=== PATIENT | female | born 1965 | race Caucasian/White ===

== ENCOUNTER → 2020-07-23 11:15 | Outpatient (CLI) | payer MEDICARE, MEDICAID, SELFPAY ==
--- NOTE | ~2020-07-23 | MM_ITS ---
EXAMINATION: MM screening jose enrique BI w herber HISTORY: Screening TECHNIQUE: Craniocaudal and mediolateral oblique 3-D tomosynthesis images were obtained and synthetic 2-D images were generated. CAD analysis was submitted and interpreted. COMPARISON: Comparison to multiple prior studies sequentially, with oldest reviewed study dated 09/2017. BREAST PARENCHYMAL COMPOSITION: The breasts are heterogeneously dense, which may obscure small masses . FINDINGS: There is focal asymmetry in the subareolar location of the left breast. The right breast is stable without evidence for malignancy. IMPRESSION: 1. Focal right breast asymmetry. 2. Additional mammographic views and possible breast ultrasound are recommended. BI-RADS Category 0: Incomplete: Needs additional imaging evaluation. Reviewed, dictated and finalized at location A. REMOVER IMPRESSION: 1. Focal right breast asymmetry. 2. Additional mammographic views and possible breast ultrasound are recommended . BI-RADS Category 0: Incomplete: Needs additional imaging evaluation.
--- NOTE | ~2020-07-23 | XR_ITS ---
XR foot RT min 3V DATE: 07/23/2020 12:17 INDICATION: Right foot pain TECHNIQUE: 4 views COMPARISON: None FINDINGS: There is diffuse osteopenia. No fracture or dislocation, periosteal reaction or bone destru ction. Joint spaces are preserved. No erosive change. IMPRESSION: Diffuse osteopenia Reviewed, dictated and finalized at location A. NSED STAFF MFT IMPRESSION: Diffuse osteopenia
== END ==
PROVIDERS: PCP Internal Medicine; Visit Provider Internal Medicine
DX: Z12.31 Encounter for screening mammogram for malignant neoplasm of breast (principal); R92.8 Other abnormal and inconclusive findings on diagnostic imaging of breast; M85.871 Other specified disorders of bone density and structure, right ankle and foot
CPT/HCPCS: 73630; 77063; 77067

== ENCOUNTER → 2020-10-14 08:43 | Outpatient (CLI) | payer MEDICARE, MEDICAID, SELFPAY ==
--- NOTE | ~2020-10-14 | MMUS_ITS ---
2 EXAMINATION: MM diagnostic jose enrique LT w herber, US breast LT limited HISTORY: Follow-up possible left breast mass TECHNIQUE: Additional 3-D tomosynthesis images of the left breast were performed and synthetic 2-D im ages were generated. CAD analysis was submitted and interpreted. High resolution Limited left breast ultrasound was performed. COMPARISON: Comparison to multiple prior studies sequentially, with oldest reviewed study dated 04/24. BREAST PARENCHYMAL COMPOSITION: Breast composed of scattered areas of fibroglandular density. FINDINGS: MAMMOGRAPHIC FINDINGS: There is a mass in the upper central aspect of the left breast which is partially obscured by fibrogl andular tissue. This mass is approximately 3.5 cm from the nipple. ULTRASOUND: Left breast ultrasound: At 12:00, 3.5 cm from the nipple, there is a 7 mm hypoechoic oval mass with e nhanced through transmission and no internal vascularity. This corresponds to the mammographic findin g. IMPRESSION: 1. Probable benign 7 mm left breast mass at 12:00, 3 cm from the nipple. 2. Recommend 6 month follow-up left breast ultrasound BI-RADS category 3, probably benign findings. Reviewed, dictated and finalized at location A. [employer] IMPRESSION: 1. Probable benign 7 mm left breast mass at 12:00, 3 cm from the nipple. 2. Recommend 6 month follow-up left breast ultrasound BI-RADS category 3, probably benign findings.
--- NOTE | ~2020-10-14 | DEXA_ITS ---
Bone Density Report Name: Yudelka Sher Age: 55 Sex: Female Ethnicity: White Date of : 1965 Indication: postmenopausal; screening for osteoporosis; parental hip fracture; height loss; history of glucocorticoids; rheumatoid arthritis; Referring Provider: ZONIA ANDINO Study: Bone densitometry was performed. Exam Date: October 14, 2020 Accession number: [id number] Bone Density: Region BMD T-score Z-score Classification AP Spine (L1-L4) 0.902 -1.3 -0.1 Osteopenia Femoral Neck (Left) 0.572 -2.5 -1.4 Osteoporosis Total Hip (Left) 0.784 -1.3 -0.5 Osteopenia Femoral Neck (Right) 0.613 -2.1 -1.0 Osteopenia Total Hip (Right) 0.786 -1.3 -0.5 Osteopenia Total Hip Mean 0.785 -1.3 -0.5 Osteopenia World Health Organization criteria for BMD impression classify patients as: Normal (T-score at or above -1.0), Osteopenia (T-score between -1.0 and -2.5), or Osteoporosis (T-score at or below -2.5). 10-year Fracture Risk: FRAX not reported because: Some T-score for Spine Total or Hip Total or Femoral Neck at or below -2.5 Clinical Information Provided by Patient: Parent has had a hip fracture Smokes Has taken Glucocorticoids Has rheumatoid arthritis Has used the following medications: Vitamin D, Calcium Patient maximum height was 67.0 Menopause Age: 50 No regular weight bearing exercise Does not regularly consume dairy products Drinks caffeinated beverages Onset of menses at age 11 Number of children 2 Impression: The patient has osteoporosis, based on the Left Femoral Neck T-score. The patient has risk factors, including: parental hip fracture, smoking, history of glucocorticoid therapy. Discussion: INCREASED RISK OF FRACTURE. BONE DENSITY IS UNDESIRABLY LOW AT ONE OR MORE SKELETAL SITES, CONSISTENT WITH POSTMENOPAUSAL OSTEOPOROSIS. This patient's lowest T-score meets the World Health Organization's (WHO) criteria for osteoporosis at one or more sites (T-score -2.5 or below). In untreated patients, the risk of osteoporotic fracture increases approximately two-fold for each 1.0 SD decrease in T-score. Low bone density is not the only risk factor for fracture; also consider factors such as patient's age, frailty or poor health, risk of falling, risk of injury, previous osteoporotic fracture, family history of osteoporosis, cigarette smoking, low body weight, etc. Not everyone with low bone mineral density has osteoporosis; osteomalacia and other metabolic bone disorders should also be considered. Patients who have osteoporosis should be evaluated for specific diseases and conditions (secondary causes) that may cause or contribute to bone loss. The [place] [employer] Endocrinologists (AACE) and National Osteoporosis Foundation (NOF) recommend pharmacologic intervention for all postmenopausal women whose
--- NOTE | ~2020-10-14 | DEXA_ITS ---
Bone Density Report Name: Yudelka Sher Age: 55 Sex: Female Ethnicity: White Date of : 1965 Indication: postmenopausal; screening for osteoporosis; parental hip fracture; height loss; history of glucocorticoids; rheumatoid arthritis; Referring Provider: ZONIA ANDINO Study: Bone densitometry was performed. Exam Date: October 14, 2020 Accession number: [id number] Bone Density: Region BMD T-score Z-score Classification Total Forearm (Left) 0.457 -2.1 -1.0 1/3 Forearm (Left) 0.592 -1.6 -0.5 UD Forearm (Left) 0.310 -2.0 -1.2 World Health Organization criteria for BMD impression classify patients as: Normal (T-score at or above -1.0), Osteopenia (T-score between -1.0 and -2.5), or Osteoporosis (T-score at or below -2.5). Clinical Information Provided by Patient: Parent has had a hip fracture Smokes Has taken Glucocorticoids Has rheumatoid arthritis Has used the following medications: Vitamin D, Calcium Patient maximum height was 67.0 Menopause Age: 50 No regular weight bearing exercise Does not regularly consume dairy products Drinks caffeinated beverages Onset of menses at age 11 Number of children 2 Impression: The patient has low bone mass, based on the Left Third Radius T-score. The patient has risk factors, including: parental hip fracture, smoking, history of glucocorticoid therapy. Discussion: BONE DENSITY IS LOW AT ONE OR MORE SKELETAL SITES. This patient's lowest T-score is low at one or more skeletal sites. It meets the World Health Organization's (WHO) criteria for ?low bone mass? (T-score between -1.0 and -2.5). The patient's 10-year risk of fracture as calculated by FRAX is less than the threshold where pharmacological therapy is recommended by the National Osteoporosis Foundation (NOF). However, all treatment decisions require clinical judgment and consideration of individual patient factors, including patient preferences, comorbidities, previous drug use, risk factors not captured in the FRAX model (e.g., frailty, falls, vitamin D deficiency, increased bone turnover, interval significant decline in bone density) and possible under or overestimation of fracture risk by FRAX. The patient should follow a healthful lifestyle (good nutrition with adequate calcium and vitamin D, and appropriate weight-bearing exercise). Follow-Up: Consider repeating this study in 2 to 3 years to reassess this patient's status, or sooner if there is some new clinical indication. Reported by: ABRAHAM on 10/14/2020 11:37:00 AM. Reviewed, dictated and finalized at location A. [facility]
== END ==
PROVIDERS: PCP Internal Medicine; Visit Provider Internal Medicine
DX: R92.8 Other abnormal and inconclusive findings on diagnostic imaging of breast (principal); M85.88 Other specified disorders of bone density and structure, other site; M81.0 Age-related osteoporosis without current pathological fracture; M85.852 Other specified disorders of bone density and structure, left thigh; M85.851 Other specified disorders of bone density and structure, right thigh
CPT/HCPCS: 76642; 77061; 77065; 77080; 77081; G0279

== ENCOUNTER → 2021-04-19 14:39 | Outpatient (CLI) | payer MEDICARE, MEDICAID, SELFPAY ==
--- NOTE | ~2021-04-19 | US_ITS ---
US breast LT limited DATE: 04/19/2021 14:52 INDICATION: Six-month follow-up of 12:00 7 mm hypoechoic oval mass 3.5 cm from nipple TECHNIQUE: Targeted ultrasound and color flow imaging at 12:00 3.5 cm from nipple COMPARISON: 10/14/2020 Limited left breast ultrasound FINDINGS: 7.5 x 6.2 x 9 mm irregular hypoechoic solid mass is noted at 12:00 3.5 cm from nipple, mild ly increased in size since 10/2020. The interval mild increased size and irregular margins are of con cern, warranting ultrasound-guided biopsy. IMPRESSION: BI-RADS Category 4: Suspicious abnormality; biopsy should be considered Recommendation: Ultrasound-guided biopsy of 12:00 lesion 3.[address] Wyatt telephoned the report and ultrasound guided biopsy recommendation on 04/19/[address] Pearson's Crew Scheduler's voicemail. Reviewed, dictated and finalized at Location A. Reviewed, dictated and finalized at location A. IMPRESSION: BI-RADS Category 4: Suspicious abnormality; biopsy should be consid ered Recommendation: Ultrasound-guided biopsy of 12:00 lesion 3.[address] Wyatt telephoned the report and ultrasound guided biopsy recommendation on at [address] Pearson's Crew Scheduler's voicemail.
== END ==
PROVIDERS: PCP Internal Medicine; Visit Provider Obstetrics & Gynecology
DX: N63.25 Unspecified lump in the left breast, overlapping quadrants (principal)
CPT/HCPCS: 76642

== ENCOUNTER 2021-12-27 11:54 | Outpatient (CLI) | payer MEDICARE, MEDICAID, SELFPAY ==
[2021-12-27 12:55] LABS: Basophils Percent Auto 0.7 % (0.2-1.2); Eosinophils Absolute Auto 0.1 K/mm3 (0-0.3); Eosinophils Percent Auto 2.3 % (0-4.4); Hematocrit 42.8 % (37.0-47.0); Immature Granulocyte Absolute 0.01 K/mm3 (0.00-0.031); Immature Granulocyte Percent A 0.3 % (0-0.5); Immature Platelet Fraction Pct 3.9 % (0.9-11.2); Lymphocytes Absolute Auto 1.33 K/mm3 (0.9-3.2); Lymphocytes Percent Auto 44.6 % (18.3-44.2); Mean Corpuscular HGB Conc 32.7 g/dl (32-36); Mean Corpuscular Hemoglobin 33.3 pg (26-34); Mean Corpuscular Volume 101.7 fl (80-100); Mean Platelet Volume 10.6 fl (7.4-10.4); Monocytes Absolute Auto 0.2 K/mm3 (0.1-0.6); Neutrophils Absolute Auto 1.4 K/mm3 (1.3-6.7); Neutrophils Percent Auto 46.1 % (45.5-73.1); Platelet Count Result 141 k/mm3 (150-375); Red Blood Count 4.21 M/mm3 (4.2-5.4); Red Cell Distribution Width 13.7 % (11.5-14.5)
[2021-12-27 13:08] LABS: Alanine Aminotransferase 25 U/L (6-35); Albumin Level 4.2 g/dL (3.5-5.1); Alkaline Phosphatase 95 U/L (38-126); Anion Gap 7 mmol/L (8-16); Aspartate Amino Transferase 38 U/L (14-36); Blood Urea Nitrogen 17 mg/dL (7-17); Calcium 9.1 mg/dL (8.4-10.2); Carbon Dioxide 21 mmol/L (22-30); Chloride 109 mmol/L (98-107); Cholesterol 209 mg/dL (0-200); Estimated Glomerular Filt Rate > 60; Glucose 91 mg/dL (65-110); HDL Direct 74 mg/dL; Potassium 4.3 mmol/L (3.4-5.0); Sodium 137 mmol/L (137-145); Triglycerides 94 mg/dL (<150)
[2021-12-27 13:19] LABS: LDL Cholesterol Direct 92 mg/dL
[2021-12-27 13:24] LABS: Free T4 Free Thyroxine 1.15 ng/mL (0.78-2.19); Vitamin D 25 Hydroxy 49.2 ng/mL
[2021-12-30 04:53] LABS: Triiodothyronine T3 Free 2.9 pg/mL (2.3-4.2)
== END 2021-12-27 11:55 | disposition home or self-care (01) ==
LOC: ANHLAB 11:59
PROVIDERS: PCP Internal Medicine; Visit Provider Clinical Nurse Specialist
DX: E03.9 Hypothyroidism, unspecified (principal); E55.9 Vitamin D deficiency, unspecified; M05.9 Rheumatoid arthritis with rheumatoid factor, unspecified; I51.9 Heart disease, unspecified
CPT/HCPCS: 36415; 80053; 80061; 82306; 84439; 84443; 84481; 85025; 85055

== ENCOUNTER 2022-01-04 12:26 | Outpatient (CLI) | payer MEDICARE, MEDICAID, SELFPAY ==
[2022-01-04 12:47] LABS: Basophils Percent Auto 0.9 % (0.2-1.2); Eosinophils Absolute Auto 0.1 K/mm3 (0-0.3); Eosinophils Percent Auto 3.5 % (0-4.4); Immature Granulocyte Absolute 0.01 K/mm3 (0.00-0.031); Immature Granulocyte Percent A 0.3 % (0-0.5); Lymphocytes Absolute Auto 1.54 K/mm3 (0.9-3.2); Lymphocytes Percent Auto 44.9 % (18.3-44.2); Mean Corpuscular HGB Conc 34.1 g/dl (32-36); Mean Corpuscular Hemoglobin 33.3 pg (26-34); Mean Corpuscular Volume 97.6 fl (80-100); Mean Platelet Volume 10.2 fl (7.4-10.4); Monocytes Absolute Auto 0.3 K/mm3 (0.1-0.6); Monocytes Percent Auto 7.3 % (2.6-8.5); Neutrophils Absolute Auto 1.5 K/mm3 (1.3-6.7); Neutrophils Percent Auto 43.1 % (45.5-73.1); Platelet Count Result 147 k/mm3 (150-375); Red Cell Distribution Width 13.6 % (11.5-14.5); White Blood Count 3.4 K/mm3 (4.5-10.0)
== END 2022-01-04 12:27 | disposition home or self-care (01) ==
LOC: ANHLAB 12:30
PROVIDERS: PCP Internal Medicine; Visit Provider Clinical Nurse Specialist
DX: D72.819 Decreased white blood cell count, unspecified (principal)
CPT/HCPCS: 36415; 85025

== ENCOUNTER 2022-02-15 14:04 | Outpatient (CLI) | payer MEDICARE, MEDICAID, SELFPAY ==
--- NOTE | ~2022-02-15 | XR_ITS ---
EXAM: XR wrist LT w scaphoid DATE: 02/15/2022 15:22 HISTORY: M25.539 - FALL 2-3 DAYS AGO, ULNA PAIN . COMPARISON: None available. FINDINGS: Decreased mineralization. Transverse fracture of the distal left ulnar shaft, with minimal lateral displacement and angulation and evidence of early healing change. No lytic or blastic lesion . Mild degenerative changes. No erosion or periosteal change. Soft tissue swelling over the fracture site. IMPRESSION: Mildly displaced and angulated subacute fracture of the distal left ulnar shaft. Recommen d left elbow radiographs to evaluate for radial head dislocation (Mon[place]ggia fracture dislocation). Reviewed, dictated and finalized at location K. IMPRESSION: Mildly displaced and angulated subacute fracture of the distal left ulnar shaft. Recommend left elbow radiographs to evaluate for radial head disl ocation (Mon[place]ggia fracture dislocation).
== END 2022-02-15 14:05 | disposition home or self-care (01) ==
PROVIDERS: PCP Internal Medicine; Visit Provider Clinical Nurse Specialist
DX: M25.539 Pain in unspecified wrist (principal)
CPT/HCPCS: 73110

== ENCOUNTER 2022-02-16 10:51 | Outpatient (CLI) | payer MEDICARE, MEDICAID, SELFPAY ==
--- NOTE | ~2022-02-16 | XR_ITS ---
XR elbow LT min 3V DATE: 02/16/2022 11:09 INDICATION: Fracture TECHNIQUE: 4 views COMPARISON: None FINDINGS: No fracture or dislocation, periosteal reaction or bone destruction. Osteopenia. IMPRESSION: No fracture or dislocation Reviewed, dictated and finalized at location A. IMPRESSION: No fracture or dislocation
== END 2022-02-16 10:52 | disposition home or self-care (01) ==
PROVIDERS: PCP Internal Medicine; Visit Provider Clinical Nurse Specialist
DX: S52.209A Unspecified fracture of shaft of unspecified ulna, initial encounter for closed fracture (principal); X58.XXXA Exposure to other specified factors, initial encounter
CPT/HCPCS: 73080

== ENCOUNTER 2022-04-13 12:31 | Outpatient (CLI) | payer MEDICARE, MEDICAID, SELFPAY ==
[2022-04-13 14:29] LABS: Basophils Percent Auto 0.7 % (0.2-1.2); Eosinophils Absolute Auto 0.2 K/mm3 (0-0.3); Hematocrit 38.4 % (37.0-47.0); Hemoglobin 12.9 g/dL (12.0-15.0); Immature Granulocyte Absolute 0.01 K/mm3 (0.00-0.031); Immature Granulocyte Percent A 0.2 % (0-0.5); Lymphocytes Absolute Auto 1.99 K/mm3 (0.9-3.2); Lymphocytes Percent Auto 47.3 % (18.3-44.2); Mean Corpuscular HGB Conc 33.6 g/dl (32-36); Mean Corpuscular Hemoglobin 32.9 pg (26-34); Mean Platelet Volume 10.1 fl (7.4-10.4); Monocytes Absolute Auto 0.5 K/mm3 (0.1-0.6); Monocytes Percent Auto 11.6 % (2.6-8.5); Neutrophils Absolute Auto 1.5 K/mm3 (1.3-6.7); Neutrophils Percent Auto 36.2 % (45.5-73.1); Platelet Count Result 119 k/mm3 (150-375); Red Blood Count 3.92 M/mm3 (4.2-5.4); Red Cell Distribution Width 15.4 % (11.5-14.5); White Blood Count 4.2 K/mm3 (4.5-10.0)
== END 2022-04-13 12:32 | disposition home or self-care (01) ==
PROVIDERS: PCP Internal Medicine; Visit Provider Clinical Nurse Specialist
DX: D72.819 Decreased white blood cell count, unspecified (principal)
CPT/HCPCS: 36415; 85025

== ENCOUNTER 2022-05-02 11:20 | Outpatient (CLI) | payer MEDICARE, MEDICAID, SELFPAY ==
[2022-05-02 19:25] LABS: Basophils Percent Auto 0.6 % (0.2-1.2); Eosinophils Absolute Auto 0.2 K/mm3 (0-0.3); Eosinophils Percent Auto 4.8 % (0-4.4); Immature Granulocyte Absolute 0.01 K/mm3 (0.00-0.031); Immature Granulocyte Percent A 0.3 % (0-0.5); Lymphocytes Absolute Auto 1.44 K/mm3 (0.9-3.2); Lymphocytes Percent Auto 46.3 % (18.3-44.2); Mean Corpuscular HGB Conc 33.3 g/dl (32-36); Mean Corpuscular Hemoglobin 32.7 pg (26-34); Mean Corpuscular Volume 98.2 fl (80-100); Mean Platelet Volume 10.9 fl (7.4-10.4); Monocytes Absolute Auto 0.2 K/mm3 (0.1-0.6); Monocytes Percent Auto 5.1 % (2.6-8.5); Neutrophils Absolute Auto 1.3 K/mm3 (1.3-6.7); Neutrophils Percent Auto 42.9 % (45.5-73.1); Platelet Count Result 129 k/mm3 (150-375); Red Blood Count 3.97 M/mm3 (4.2-5.4); Red Cell Distribution Width 14.8 % (11.5-14.5); White Blood Count 3.1 K/mm3 (4.5-10.0)
== END 2022-05-02 11:21 | disposition home or self-care (01) ==
PROVIDERS: PCP Internal Medicine; Visit Provider Internal Medicine
DX: D69.6 Thrombocytopenia, unspecified (principal); D72.819 Decreased white blood cell count, unspecified
CPT/HCPCS: 36415; 85025

== ENCOUNTER 2022-07-27 13:18 | Outpatient (CLI) | payer MEDICARE, MEDICAID, SELFPAY | END 2022-07-27 13:19 | disposition home or self-care (01) | LOC: ANHGOSHLAB 13:20 | PROVIDERS: PCP Internal Medicine; Visit Provider Clinical Nurse Specialist | DX: E03.9 Hypothyroidism, unspecified (principal) | CPT/HCPCS: 36415; 84443 ==

== ENCOUNTER → 2023-02-12 11:25 | Outpatient (CLI) | payer MEDICARE, MEDICAID, SELFPAY ==
--- NOTE | ~2023-02-12 | XR_ITS ---
Left wrist Technique: PA, oblique, lateral, and ulnar deviation views were obtained. Clinical History: Pain COMPARISON: 05/17/2022 Findings: Questionable focal cortical irregularity of the scaphoid. Chronic, healed fracture deformit y of the distal ulnar shaft noted. Osseous alignment is anatomic. Joint spaces are preserved. Soft ti ssues are unremarkable. Impression: Questionable nondisplaced fracture scaphoid. Correlate for somewhat box tenderness. If there is clini karley concern for scaphoid fracture, then MR would be recommended for further assessment. Reviewed, dictated and finalized at [facility]. Impression: Questionable nondisplaced fracture scaphoid. Correlate for somewhat box tendern ess. If there is clinical concern for scaphoid fracture, then MR would be recom mended for further assessment.
== END ==
PROVIDERS: PCP Clinical Nurse Specialist; Visit Provider Clinical Nurse Specialist
DX: M25.532 Pain in left wrist (principal); R93.6 Abnormal findings on diagnostic imaging of limbs
CPT/HCPCS: 73110

== ENCOUNTER 2023-05-02 10:34 | Outpatient (CLI) | payer MEDICARE, MEDICAID, SELFPAY ==
[2023-05-02 10:52] LABS: Eosinophils Absolute Auto 0.3 K/mm3 (0-0.3); Eosinophils Percent Auto 8.4 % (0-4.4); Hematocrit 39.4 % (37.0-47.0); Hemoglobin 13.2 g/dL (12.0-15.0); Lymphocytes Absolute Auto 1.18 K/mm3 (0.9-3.2); Lymphocytes Percent Auto 38.1 % (18.3-44.2); Mean Corpuscular HGB Conc 33.5 g/dl (32-36); Mean Corpuscular Hemoglobin 33.1 pg (26-34); Mean Corpuscular Volume 98.7 fl (80-100); Mean Platelet Volume 9.8 fl (7.4-10.4); Monocytes Absolute Auto 0.1 K/mm3 (0.1-0.6); Monocytes Percent Auto 4.5 % (2.6-8.5); Neutrophils Absolute Auto 1.5 K/mm3 (1.3-6.7); Platelet Count Result 114 k/mm3 (150-375); Red Blood Count 3.99 M/mm3 (4.2-5.4); White Blood Count 3.1 K/mm3 (4.5-10.0)
[2023-05-02 12:01] LABS: Alanine Aminotransferase 28 U/L (6-35); Albumin Level 3.9 g/dL (3.5-5.1); Alkaline Phosphatase 110 U/L (38-126); Anion Gap 4 mmol/L (8-16); Aspartate Amino Transferase 35 U/L (14-36); Bilirubin,Total 0.7 mg/dL (0.2-1.3); Blood Urea Nitrogen 14 mg/dL (7-17); Calcium 9.2 mg/dL (8.4-10.2); Carbon Dioxide 26 mmol/L (22-30); Chloride 107 mmol/L (98-107); Estimated Glomerular Filt Rate > 60; Glucose 101 mg/dL (65-110); Potassium 4.1 mmol/L (3.4-5.0); Sodium 137 mmol/L (137-145)
[2023-05-02 12:46] LABS: Iron 87 ug/dL (37-170)
[2023-05-02 12:59] LABS: Percent Iron Saturation 27 % (20-50)
[2023-05-02 13:10] LABS: Folic Acid > 20.0 ng/mL (2.76->20)
[2023-05-05 23:22] LABS: Platelet Antibody, Direct NEGATIVE (NEGATIVE)
== END 2023-05-02 10:35 | disposition home or self-care (01) ==
PROVIDERS: PCP Clinical Nurse Specialist; Visit Provider Internal Medicine Hematology & Oncology
DX: D64.9 Anemia, unspecified (principal)
CPT/HCPCS: 36415; 80053; 82607; 82728; 82746; 83540; 83550; 85025; 86023

== ENCOUNTER 2023-05-21 09:22 | Outpatient (CLI) | payer MEDICARE, MEDICAID, SELFPAY ==
--- NOTE | ~2023-05-21 | US_ITS ---
US abdomen complete EXAMINATION: US Abdomen Complete INDICATION: Thrombocytopenia PROCEDURE: Realtime High Resolution abdomen ultrasound. COMPARISON: No prior studies for comparison FINDINGS: Gallbladder contains stones. Common bile duct measures 6.5 mm. Liver echotexture within normal limits without focal mass. Pancreas within normal limits. Pancreati c tail is obscured by bowel gas. Spleen is unremarkeable. Renal echotexture is within normal limits bilaterally without hydronephrosis, contour deforming mass or renal stone. Right kidney measures 9.8 cm. Left kidney measures 9.8 cm. Visualized aspects of the aorta and IVC are within normal limits. Portal vein is patent. No sonograph ic Warren's sign indicated by the technologist. IMPRESSION: 1: Cholelithiasis. Reviewed, dictated and finalized at location B. IMPRESSION: 1: Cholelithiasis.
== END 2023-05-21 09:23 | disposition home or self-care (01) ==
PROVIDERS: PCP Clinical Nurse Specialist; Visit Provider Internal Medicine Hematology & Oncology
DX: D69.59 Other secondary thrombocytopenia (principal); K80.20 Calculus of gallbladder without cholecystitis without obstruction
CPT/HCPCS: 76700

== ENCOUNTER 2023-07-24 12:12 | Outpatient (CLI) | payer MEDICARE, MEDICAID, SELFPAY ==
[2023-07-24 13:10] LABS: Basophils Percent Auto 0.7 % (0.2-1.2); Eosinophils Absolute Auto 0.3 K/mm3 (0-0.3); Eosinophils Percent Auto 5.9 % (0-4.4); Hematocrit 42.3 % (37.0-47.0); Immature Granulocyte Absolute 0.01 K/mm3 (0.00-0.031); Immature Granulocyte Percent A 0.2 % (0-0.5); Lymphocytes Absolute Auto 1.64 K/mm3 (0.9-3.2); Lymphocytes Percent Auto 38.5 % (18.3-44.2); Mean Corpuscular HGB Conc 33.1 g/dl (32-36); Mean Corpuscular Hemoglobin 31.8 pg (26-34); Mean Corpuscular Volume 96.1 fl (80-100); Mean Platelet Volume 10.3 fl (7.4-10.4); Monocytes Absolute Auto 0.2 K/mm3 (0.1-0.6); Monocytes Percent Auto 5.4 % (2.6-8.5); Neutrophils Absolute Auto 2.1 K/mm3 (1.3-6.7); Neutrophils Percent Auto 49.3 % (45.5-73.1); Platelet Count Result 155 k/mm3 (150-375); Red Cell Distribution Width 13.1 % (11.5-14.5); White Blood Count 4.3 K/mm3 (4.5-10.0)
[2023-07-24 13:22] LABS: Alanine Aminotransferase 25 U/L (6-35); Albumin Level 4.1 g/dL (3.5-5.1); Alkaline Phosphatase 100 U/L (38-126); Anion Gap 7 mmol/L (8-16); Aspartate Amino Transferase 37 U/L (14-36); Bilirubin,Total 0.8 mg/dL (0.2-1.3); Blood Urea Nitrogen 14 mg/dL (7-17); CRP < 0.5 mg/dL (<1.0); Calcium 9.3 mg/dL (8.4-10.2); Carbon Dioxide 25 mmol/L (22-30); Chloride 108 mmol/L (98-107); Estimated Glomerular Filt Rate > 60; Glucose 105 mg/dL (65-110); Potassium 4.1 mmol/L (3.4-5.0); Sodium 140 mmol/L (137-145)
[2023-07-24 14:25] LABS: Erythrocyte Sedimentation Rate 21 mm/hr (0-20)
== END 2023-07-24 12:13 | disposition home or self-care (01) ==
PROVIDERS: PCP Clinical Nurse Specialist
DX: M06.9 Rheumatoid arthritis, unspecified (principal); Z79.899 Other long term (current) drug therapy
CPT/HCPCS: 36415; 80053; 85025; 85652; 86140

== ENCOUNTER 2023-08-03 11:23 | Outpatient (CLI) | payer MEDICARE, MEDICAID, SELFPAY ==
[2023-08-03 11:44] LABS: Basophils Percent Auto 0.8 % (0.2-1.2); Eosinophils Absolute Auto 0.2 K/mm3 (0-0.3); Eosinophils Percent Auto 4.8 % (0-4.4); Hematocrit 41.9 % (37.0-47.0); Hemoglobin 13.9 g/dL (12.0-15.0); Immature Granulocyte Absolute 0.01 K/mm3 (0.00-0.031); Immature Granulocyte Percent A 0.3 % (0-0.5); Lymphocytes Absolute Auto 1.16 K/mm3 (0.9-3.2); Lymphocytes Percent Auto 32.8 % (18.3-44.2); Mean Corpuscular HGB Conc 33.2 g/dl (32-36); Mean Corpuscular Hemoglobin 32.5 pg (26-34); Mean Corpuscular Volume 97.9 fl (80-100); Mean Platelet Volume 9.7 fl (7.4-10.4); Monocytes Absolute Auto 0.3 K/mm3 (0.1-0.6); Monocytes Percent Auto 7.6 % (2.6-8.5); Neutrophils Absolute Auto 1.9 K/mm3 (1.3-6.7); Neutrophils Percent Auto 53.7 % (45.5-73.1); Platelet Count Result 104 k/mm3 (150-375); Red Blood Count 4.28 M/mm3 (4.2-5.4); White Blood Count 3.5 K/mm3 (4.5-10.0)
[2023-08-03 14:08] LABS: Folic Acid 19.6 ng/mL (2.76->20)
[2023-08-03 18:23] LABS: Iron 114 ug/dL (37-170)
[2023-08-03 18:37] LABS: Percent Iron Saturation 39 % (20-50)
== END 2023-08-03 11:24 | disposition home or self-care (01) ==
LOC: ANHLAB 11:26
PROVIDERS: PCP Internal Medicine; Visit Provider Internal Medicine Hematology & Oncology
DX: D64.9 Anemia, unspecified (principal)
CPT/HCPCS: 36415; 82607; 82728; 82746; 83540; 83550; 85025

== ENCOUNTER 2023-08-09 15:03 | Outpatient (CLI) | payer MEDICARE, MEDICAID, SELFPAY | END 2023-08-09 15:04 | disposition home or self-care (01) | LOC: ANHLAB 15:05 | PROVIDERS: PCP Internal Medicine; Visit Provider Internal Medicine Hematology & Oncology | DX: D72.819 Decreased white blood cell count, unspecified (principal) | CPT/HCPCS: 88184 ==

== ENCOUNTER 2023-12-05 11:27 | Outpatient (CLI) | payer MEDICARE, MEDICAID, SELFPAY ==
[2023-12-05 12:10] LABS: Basophils Percent Auto 0.7 % (0.2-1.2); Eosinophils Absolute Auto 0.1 K/mm3 (0-0.3); Eosinophils Percent Auto 3.5 % (0-4.4); Hematocrit 42.4 % (37.0-47.0); Hemoglobin 14.1 g/dL (12.0-15.0); Immature Granulocyte Absolute 0.02 K/mm3 (0.00-0.031); Immature Granulocyte Percent A 0.5 % (0-0.5); Lymphocytes Percent Auto 27.4 % (18.3-44.2); Mean Corpuscular HGB Conc 33.3 g/dl (32-36); Mean Corpuscular Hemoglobin 32.3 pg (26-34); Mean Corpuscular Volume 97.2 fl (80-100); Mean Platelet Volume 10.2 fl (7.4-10.4); Monocytes Absolute Auto 0.3 K/mm3 (0.1-0.6); Monocytes Percent Auto 8.2 % (2.6-8.5); Neutrophils Absolute Auto 2.4 K/mm3 (1.3-6.7); Neutrophils Percent Auto 59.7 % (45.5-73.1); Platelet Count Result 121 k/mm3 (150-375); Red Blood Count 4.36 M/mm3 (4.2-5.4)
[2023-12-05 12:22] LABS: Alanine Aminotransferase 26 U/L (6-35); Albumin Level 4.2 g/dL (3.5-5.1); Alkaline Phosphatase 120 U/L (38-126); Anion Gap 5 mmol/L (4-12); Aspartate Amino Transferase 34 U/L (14-36); Bilirubin,Total 0.6 mg/dL (0.2-1.3); Blood Urea Nitrogen 15 mg/dL (7-17); CRP 0.7 mg/dL (<1.0); Calcium 9.5 mg/dL (8.4-10.2); Carbon Dioxide 25 mmol/L (22-30); Chloride 111 mmol/L (98-107); Estimated Glomerular Filt Rate > 60; Glucose 123 mg/dL (65-110); Sodium 141 mmol/L (137-145)
[2023-12-05 13:44] LABS: Erythrocyte Sedimentation Rate 23 mm/hr (0-20)
== END 2023-12-05 11:28 | disposition home or self-care (01) ==
PROVIDERS: PCP Internal Medicine
DX: M06.9 Rheumatoid arthritis, unspecified (principal); Z79.899 Other long term (current) drug therapy
CPT/HCPCS: 36415; 80053; 85025; 85652; 86140

== ENCOUNTER 2024-01-23 10:45 | Outpatient (CLI) | payer MEDICARE, MEDICAID, SELFPAY ==
--- NOTE | ~2024-01-23 | XR_ITS ---
XR knee LT min 4V 01/23/2024 11:04 Indication: Left knee pain Procedure: 4 views left knee Comparison: 03/21/2023 Findings: There is anatomic alignment. There is sclerosis of the medial tibial plateau. No significan t joint effusion. Impression: 1: New sclerosis of the medial tibial plateau, suspicious for nondisplaced fracture. Consider correla tion with MRI. Reviewed, dictated and finalized at location B. Impression: 1: New sclerosis of the medial tibial plateau, suspicious for nondisplaced frac ture. Consider correlation with MRI.
== END 2024-01-23 10:46 | disposition home or self-care (01) ==
LOC: ANHIMG 10:47
PROVIDERS: PCP Internal Medicine; Visit Provider Orthopaedic Surgery
DX: M25.562 Pain in left knee (principal)
CPT/HCPCS: 73564

== ENCOUNTER 2024-03-10 10:15 | Outpatient (CLI) | payer MEDICARE, MEDICAID, SELFPAY ==
[2024-03-10 10:44] LABS: Basophils Percent Auto 0.3 % (0.2-1.2); Eosinophils Absolute Auto 0.1 K/mm3 (0-0.3); Eosinophils Percent Auto 4.1 % (0-4.4); Hematocrit 39.7 % (37.0-47.0); Hemoglobin 13.3 g/dL (12.0-15.0); Lymphocytes Absolute Auto 1.34 K/mm3 (0.9-3.2); Lymphocytes Percent Auto 42.7 % (18.3-44.2); Mean Corpuscular HGB Conc 33.5 g/dl (32-36); Mean Corpuscular Volume 98.5 fl (80-100); Mean Platelet Volume 9.6 fl (7.4-10.4); Monocytes Absolute Auto 0.3 K/mm3 (0.1-0.6); Monocytes Percent Auto 8.9 % (2.6-8.5); Neutrophils Absolute Auto 1.4 K/mm3 (1.3-6.7); Platelet Count Result 122 k/mm3 (150-375); Red Blood Count 4.03 M/mm3 (4.2-5.4); Red Cell Distribution Width 13.7 % (11.5-14.5); White Blood Count 3.1 K/mm3 (4.5-10.0)
[2024-03-10 10:50] LABS: Blood Urea Nitrogen 15 mg/dL (8-26); Carbon Dioxide 26 mmol/L (22-30); Chloride 108 mmol/L (98-109); Estimated Glomerular Filt Rate 51; Glucose 104 mg/dL (70-105); Ionized Calcium (POC) 1.25 mmol/L (1.11-1.31); Potassium 3.9 mmol/L (3.5-4.9); Sodium 140 mmol/L (138-146)
== END 2024-03-10 10:16 | disposition home or self-care (01) ==
PROVIDERS: PCP Internal Medicine; Visit Provider Internal Medicine Hematology & Oncology
DX: D72.819 Decreased white blood cell count, unspecified (principal)
CPT/HCPCS: 36415; 80047; 85025

== ENCOUNTER 2024-04-29 14:00 | Outpatient (CLI) | payer MEDICARE, MEDICAID, SELFPAY ==
--- NOTE | ~2024-04-29 | XR_ITS ---
EXAM: XR knee LT min 4V DATE: 04/29/2024 15:13 HISTORY: M84.462A - Pathological fracture, left tibia, initial enc... . COMPARISON: 01/23/2024. FINDINGS: Decreased mineralization. Redemonstration of the ill-defined sclerosis in the medial tibia l plateau, with increased sclerosis since the prior exam. No new fracture or dislocation. The articul ar surface appears to be intact. No lytic or blastic lesion. Mild tricompartmental osteoarthritis. Qu adriceps enthesopathy. Trace joint fluid. No erosion or periosteal change. Soft tissues within normal limits. IMPRESSION: Increasing sclerosis in the medial tibial plateau, may indicate worsening nondisplaced pa thologic fracture versus changes of healing. No definite articular surface collapse. Consider MR of t he knee for further evaluation. Reviewed, dictated and finalized at location K. IMPRESSION: Increasing sclerosis in the medial tibial plateau, may indicate wor sening nondisplaced pathologic fracture versus changes of healing. No definite articular surface collapse. Consider MR of the knee for further evaluation.
[2024-04-29 15:40] LABS: Basophils Percent Auto 0.5 % (0.2-1.2); Eosinophils Absolute Auto 0.2 K/mm3 (0-0.3); Eosinophils Percent Auto 3.8 % (0-4.4); Hematocrit 38.9 % (37.0-47.0); Hemoglobin 12.7 g/dL (12.0-15.0); Immature Granulocyte Absolute 0.01 K/mm3 (0.00-0.031); Immature Granulocyte Percent A 0.3 % (0-0.5); Lymphocytes Absolute Auto 1.81 K/mm3 (0.9-3.2); Lymphocytes Percent Auto 45.8 % (18.3-44.2); Mean Corpuscular HGB Conc 32.6 g/dl (32-36); Mean Corpuscular Hemoglobin 32.6 pg (26-34); Mean Corpuscular Volume 99.7 fl (80-100); Mean Platelet Volume 10.3 fl (7.4-10.4); Monocytes Absolute Auto 0.4 K/mm3 (0.1-0.6); Monocytes Percent Auto 10.1 % (2.6-8.5); Neutrophils Absolute Auto 1.6 K/mm3 (1.3-6.7); Neutrophils Percent Auto 39.5 % (45.5-73.1); Platelet Count Result 133 k/mm3 (150-375); Red Cell Distribution Width 13.5 % (11.5-14.5)
[2024-04-29 15:51] LABS: Alanine Aminotransferase 29 U/L (6-35); Alkaline Phosphatase 145 U/L (38-126); Anion Gap 6 mmol/L (4-12); Aspartate Amino Transferase 46 U/L (14-36); Bilirubin,Total 0.5 mg/dL (0.2-1.3); Blood Urea Nitrogen 15 mg/dL (7-17); Calcium 9.2 mg/dL (8.4-10.2); Carbon Dioxide 26 mmol/L (22-30); Chloride 106 mmol/L (98-107); Estimated Glomerular Filt Rate > 60; Glucose 87 mg/dL (65-110); Potassium 4.2 mmol/L (3.4-5.0); Sodium 138 mmol/L (137-145)
[2024-04-29 16:10] LABS: Erythrocyte Sedimentation Rate 51 mm/hr (0-20)
== END 2024-04-29 14:01 | disposition home or self-care (01) ==
PROVIDERS: PCP Internal Medicine; Referring Provider Emergency Medicine Emergency Medical Services; Visit Provider Orthopaedic Surgery
DX: M84.462A Pathological fracture, left tibia, initial encounter for fracture (principal); M06.9 Rheumatoid arthritis, unspecified
CPT/HCPCS: 36415; 73564; 80053; 85025; 85055; 85652; 86140

== ENCOUNTER 2024-09-03 12:35 | Outpatient (CLI) | payer MEDICARE, MEDICAID, SELFPAY ==
[2024-09-03 14:29] LABS: Basophils Percent Auto 0.5 % (0.2-1.2); Eosinophils Absolute Auto 0.2 K/mm3 (0-0.3); Eosinophils Percent Auto 3.9 % (0-4.4); Hematocrit 43.1 % (37.0-47.0); Hemoglobin 14.5 g/dL (12.0-15.0); Immature Granulocyte Absolute 0.01 K/mm3 (0.00-0.031); Immature Granulocyte Percent A 0.2 % (0-0.5); Lymphocytes Absolute Auto 1.42 K/mm3 (0.9-3.2); Lymphocytes Percent Auto 34.6 % (18.3-44.2); Mean Corpuscular HGB Conc 33.6 g/dl (32-36); Mean Corpuscular Volume 98.2 fl (80-100); Mean Platelet Volume 10.2 fl (7.4-10.4); Monocytes Absolute Auto 0.2 K/mm3 (0.1-0.6); Monocytes Percent Auto 5.6 % (2.6-8.5); Neutrophils Absolute Auto 2.3 K/mm3 (1.3-6.7); Neutrophils Percent Auto 55.2 % (45.5-73.1); Platelet Count Result 152 k/mm3 (150-375); Red Blood Count 4.39 M/mm3 (4.2-5.4); Red Cell Distribution Width 13.2 % (11.5-14.5); White Blood Count 4.1 K/mm3 (4.5-10.0)
[2024-09-03 15:07] LABS: Erythrocyte Sedimentation Rate 24 mm/hr (0-20)
[2024-09-03 16:23] LABS: Alanine Aminotransferase 29 U/L (6-35); Alkaline Phosphatase 127 U/L (38-126); Anion Gap 7 mmol/L (4-12); Aspartate Amino Transferase 36 U/L (14-36); Bilirubin,Total 0.7 mg/dL (0.2-1.3); Blood Urea Nitrogen 14 mg/dL (7-17); CRP < 0.5 mg/dL (<1.0); Calcium 9.1 mg/dL (8.4-10.2); Carbon Dioxide 26 mmol/L (22-30); Chloride 107 mmol/L (98-107); Estimated Glomerular Filt Rate > 60; Glucose 94 mg/dL (65-110); Potassium 3.9 mmol/L (3.4-5.0); Sodium 140 mmol/L (137-145)
== END 2024-09-03 12:36 | disposition home or self-care (01) ==
PROVIDERS: Visit Provider Emergency Medicine Emergency Medical Services
DX: M06.9 Rheumatoid arthritis, unspecified (principal); Z79.899 Other long term (current) drug therapy
CPT/HCPCS: 36415; 80053; 85025; 85652; 86140

== ENCOUNTER 2024-11-06 09:48 | Outpatient (CLI) | payer MEDICARE, MEDICAID, SELFPAY ==
[2024-11-06 10:03] LABS: Basophils Percent Auto 0.7 % (0.2-1.2); Eosinophils Absolute Auto 0.1 K/mm3 (0-0.3); Eosinophils Percent Auto 3.2 % (0-4.4); Hematocrit 40.3 % (37.0-47.0); Hemoglobin 13.6 g/dL (12.0-15.0); Immature Granulocyte Absolute 0.01 K/mm3 (0.00-0.031); Immature Granulocyte Percent A 0.2 % (0-0.5); Lymphocytes Absolute Auto 1.73 K/mm3 (0.9-3.2); Lymphocytes Percent Auto 43.1 % (18.3-44.2); Mean Corpuscular HGB Conc 33.7 g/dl (32-36); Mean Corpuscular Hemoglobin 32.5 pg (26-34); Mean Corpuscular Volume 96.4 fl (80-100); Mean Platelet Volume 9.1 fl (7.4-10.4); Monocytes Absolute Auto 0.4 K/mm3 (0.1-0.6); Neutrophils Absolute Auto 1.8 K/mm3 (1.3-6.7); Neutrophils Percent Auto 43.8 % (45.5-73.1); Platelet Count Result 128 k/mm3 (150-375); Red Blood Count 4.18 M/mm3 (4.2-5.4); Red Cell Distribution Width 13.2 % (11.5-14.5)
[2024-11-06 11:59] LABS: Anion Gap 4 mmol/L (4-12); Blood Urea Nitrogen 16 mg/dL (7-17); Calcium 9.4 mg/dL (8.4-10.2); Carbon Dioxide 28 mmol/L (22-30); Chloride 109 mmol/L (98-107); Estimated Glomerular Filt Rate 54; Glucose 110 mg/dL (65-110); Potassium 4.2 mmol/L (3.4-5.0); Sodium 141 mmol/L (137-145)
[2024-11-06 13:08] LABS: Folic Acid > 20.0 ng/mL (2.76->20)
== END 2024-11-06 09:49 | disposition home or self-care (01) ==
LOC: ANHLAB 09:49
PROVIDERS: PCP Clinical Nurse Specialist; Visit Provider Internal Medicine Hematology & Oncology
DX: D64.9 Anemia, unspecified (principal)
CPT/HCPCS: 36415; 80048; 82607; 82746; 85025

== ENCOUNTER 2025-01-09 08:58 | Outpatient (CLI) | payer MEDICARE, MEDICAID, SELFPAY ==
--- OUTSIDE RECORDS SUMMARY | 2025-01-09 09:04 | XMS_ITS | Encounter Summary ---
Author Organization [facility] Healthcare Address [address] [place] [address] Care Team Providers Care Tutor Coordinator Name Role Phone Adriano Powers DO Primary Care Provider [phone]- [phone] Reason for Referral * Diagnostic Imaging (Routine) - Closed Specialty Diagnoses / Procedures Referred By Contac t Referred To Contact Diagnoses Screening mammogram, encounter for Procedures Screening Mammogram Bilateral W Ralph Screening Mammogram, Self [facility] Referral ID Status Reason Start Date Expiration Date Visits Re quested Visits Authorized [id number] Closed 12/09/2024 01/08/2026 1 1 * Diagnostic Imaging (Routine) - Closed Specialty Diagnoses / Procedures Referred By Contac t Referred To Contact Diagnoses Screening mammogram, encounter for Procedures Screening Mammogram Bilateral W Ralph Screening Mammogram, Self [facility] Referral ID Status Reason Start Date Expiration Date Visits Re quested Visits Authorized [id number] Closed 12/09/2024 01/08/2026 1 1 Reason for Visit * Diagnostic Imaging (Routine) - Closed Specialty Diagnoses / Procedures Referred By Contac t Referred To Contact Diagnoses Screening mammogram, encounter for Procedures Screening Mammogram Bilateral W Ralph Screening Mammogram, Self [facility] Referral ID Status Reason Start Date Expiration Date Visits Re quested Visits Authorized [id number] Closed 12/09/2024 01/08/2026 1 1 Encounter Details Date Type Department Care Team (Latest Contact Info) Description 01/07/2025 11:34 AM CDT - 01/07/2025 11:59 PM CDT Hospital Encounter [facility] ([facility]) [address] [place] [id number] Screening mammogram, encounter for Discharge Disposition: Discharge to home or self care Social History Tobacco Use Types Packs/Day Years Used Date Smoking Tobacco: Former Cigarettes Q uit: 08/2022 Smokeless Tobacco: Never Alcohol Use Standard Drinks/Week Comments No 0 (1 standard drink = 0.6 oz pur e alcohol) AUDIT-C Answer Date Recorded Q1: How often do you have a drink containing alc ohol? 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 Gender Identity Not on file Sexual Orientation Not on file documented as of this encounter Medications at Time of Discharge abatacept (ORENCIA) 125 mg/mL auto-injector Orencia ClickJect 125 mg/mL subcutaneous auto-injector acetaminophen (TYLENOL ARTHRITIS PAIN ORAL) Take by mouth aspirin (ASPIR-81) 81 mg tablet take 1 tablet by oral route every day 0 0 08/19/2015 calcium citrate-vitamin D3 (CITRACAL + D PETITES) 200 mg calcium -250 unit tablet 0 05/30/2012 carvediloL (COREG) 6.25 mg tablet TAKE 1 TABLET BY MOUTH TWICE DAILY WITH MEALS 180 tablet 12/16/2024 cyanocobalamin (Vitamin B-12) 1,000 mcg tabletIndication s:Prevention of Vitamin B12 Deficiency Take 1 tablet (1,000 mcg total) by mouth daily ferrous sulfate (IRON) 325 mg (65 mg iron) capsule, extended release take 1 by Oral route every day 0 0 08/19/2015 folic acid (FOLVITE) 1 mg tablet TAKE 1 TABLET BY MOUTH ONCE DAILY 30 tablet 5 07/11/2018 methotrexate 2.5 mg tablet take 2 by Oral route every week 0 0 10/11/2015 topiramate (TOPAMAX) 100 mg tablet take 1 tablet by oral route 2 times every day 0 0 01/11/2017 warfarin (COUMADIN) 1 mg tablet TAKE 1 TABLET BY MOUTH ONCE DAILY DIRECTED 90 tablet 07/17/2022 warfarin (COUMADIN) 2 mg tablet Take 1 tablet by mouth once daily 30 tablet 12/24/2024 documented as of this encounter Discharge Disposition Disposition Code Departure Means Destination Discharge to home or self care documented in this encounter Plan of Treatment Not on file documented as of this encounter Procedures Procedure Name Priority Date/Time Associated Diagnosis Comments SCREENING MAMMOGRAM BILATERAL W RALPH Schedule Routine, Read Routine (OP Routine) 01/07/2025 11:54 AM CDT Screening mammogram, encounter for documented in this encounter Results * Screening Mammogram Bilateral W Ralph (01/07/2025 11:54 AM CDT) Anatomical Region Laterality Modality Breast Bilateral Mammography Narrative 01/08/2025 4:38 PM CDT Mammogram Technique: Bilateral Digital Breast Tomosynthesis, Bilateral C-view 2D Screening mammogram. Views obtained: bilateral craniocaudal and bilateral mediolateral oblique. Computer Aided Detection was performed. Mammogram Findings: The present examination has been compared to prior imaging studies performed at [facility] on 01/18/2022, 12/21/2022 and 01/01/2024. There are scattered areas of fibroglandular density. There is no suspicious abnormality in either breast. There are no significant changes from the prior study. There is no suspicious abnormality in either breast. Impression: There is no mammographic evidence of malignancy. Annual screening mammography is recommended. OVERALL FINAL ASSESSMENT: BI-RADS CATEGORY 2: Benign. Procedure Note Fransico Ruano MD - 01/08/2025 Mammogram Technique: Bilateral Digital Breast Tomosynthesis, Bilateral C-view 2D Screening mammogram. Views obtained: bilateral craniocaudal and bilateral mediolateral oblique. Computer Aided Detection was performed. Mammogram Findings: The present examination has been compared to prior imaging studies performed at [facility] on 01/18/2022, 12/21/2022 and 01/01/2024. There are scattered areas of fibroglandular density. There is no suspicious abnormality in either breast. There are no significant changes from the prior study. There is no suspicious abnormality in either breast. Impression: There is no mammographic evidence of malignancy. Annual screening mammography is recommended. OVERALL FINAL ASSESSMENT: BI-RADS CATEGORY 2: Benign. us Self Screening Mammogram IMG MAMMO PROCEDURES Fi nal Result documented in this encounter Visit Diagnoses Diagnosis Screening mammogram, encounter for documented in this encounter Care Teams Tutor Coordinator Relationship Specialty Start Date End Date Adriano Powers DO PCP - General Internal Medicine 01/17/21 documented as of this encounter
--- OUTSIDE RECORDS SUMMARY | 2025-01-09 09:04 | XMS_ITS | Clinical Summary ---
Author Organization [facility] Address [address] [place] [address] Care Team Providers Care Arbor Press Operator Name Role Phone Unavailable Primary Care Provider Unavailabl e Source Comments [facility],non-owned Affiliates and Associated Physician Practices is amultiple site organization consisting of ambulatory clinics and hospital sitesin [place], [place], [place] and [place]. This disclosure is being madepursuant to the Care Everywhere program and may not contain all information available regarding this patient. Last updated 18.[facility] Social History Tobacco Use Types Packs/Day Years Used Date Smoking Tobacco: Never Assessed Comments Unknown Sex and Gender Information Value Date Recorded Sex Assigned at Not on file Legal Sex Female 10:04 AM CDT Gender Identity Not on file Sexual Orientation Not on file Plan of Treatment Health Maintenance Due Date Last Done Comments COLOGUARD (AGES 45-75) - COL ON CA SCREENING 1965 COLON MONITORING 1965 COLONOSCOPY - COLON CA SCREENING 1964 CT COLONOGRAPHY - COLON CA SCREENING 1964 Colorectal Cancer Screening 1964 FIT - COLON CA SCREENING 1964 FLEX SIG - COLON CA SCREENING 1964 LIPID TESTING 1964 MAMMOGRAM 1964 HIV SCREENING 1979 HEPATITIS C SCREENING 03/12/1982 DTAP/TDAP/TD VACCINES (1 - Tdap) 1983 PNEUMOCOCCAL VACCINE 50+ (1 of 1 - PCV) 2014 ZOSTER VACCINE (1 of 2) 2014 COVID-19 VACCINE ( - 2023-2 5 season) 2024 DEPRESSION SCREENING 08/13/2024 INFLUENZA VACCINE (Season Ended) 2025 Respiratory Syncytial Virus (RSV) Vaccine Pt: or over 60 yrs (1 - 1-dose 75+ series) 2039 HEPATITIS B VACCINE Aged Out No longe r eligible based on patient's age to complete this topic HIB VACCINE Aged Out No longer eligi ble based on patient's age to complete this topic HPV VACCINE Aged Out No longer eligi ble based on patient's age to complete this topic MENINGOCOCCAL (Group B) VACC INE SHARED DECISION-MAKING Aged Out No longer eligibl e based on patient's age to complete this topic MENINGOCOCCAL GROUPS A/C/Y/W VACCINE Aged Out No longer eligible b ased on patient's age to complete this topic Insurance MANAGED MEDICARE ADV MANAGED MEDICARE ADV MEDICAID - OUT OF STATE
--- OUTSIDE RECORDS SUMMARY | 2025-01-09 09:04 | XMS_ITS | Encounter Summary ---
Author Organization [facility] Address [address] [place] [address] Care Team Providers Care Pool Attendant Name Role Phone Kain Carty MD, Garcia Dc Primary Care Provider Adriano Powers DO Primary Care Provider +1- [phone] Encounter Details Date Type Department Care Team (Late st Contact Info) Description 12/07/2016 Orders Only [facility] ProviderJohnny MD [address] [place], [place] [id number] Social History Tobacco Use Types Packs/Day Years Used Date Smoking Tobacco: Every Day Alcohol Use Standard Drinks/Week Comments No 0 (1 standard drink = 0.6 oz pur e alcohol) Comments Unknown Sex and Gender Information Value Date Recorded Sex Assigned at Not on file 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 Historical Provider [facility] [place] Final Result * CARDIOLOGY REPORT (12/07/2016) Anatomical Region Laterality Modality Other Narrative 12/07/2016 Ordered by an unspecified provider. us Historical Provider [facility] [place] Final Result documented in this encounter Visit Diagnoses Not on filedocumented in this encounter Care Teams Pool Attendant Relationship Specialty Start Date End Date Garcia Finnegan Jr., MD [address] [place] [address] PCP - General 11/10/16 01/16/21 Adriano Powers DO [address] [place] [address] PCP - General Internal Medicine 01/17/21 documented as of this encounter
--- OUTSIDE RECORDS SUMMARY | 2025-01-09 09:04 | XMS_ITS | Referral Summary ---
Author Organization [facility] Address [address] [place] [address] Care Team Providers Care Nail Machine Operator Name Role Phone Adriano Powers DO Primary Care Provider +1- [phone] Encounters Date Type Department Care Team Description 01/07/2025 11:34 AM CDT - 01/07/2025 11:59 PM CDT Hospital Encounter [facility] Breast Imaging [facility] ([facility]) [address] [place] [address] Screening mammogram, encounter for Discharge Disposition: Discharge to home or self care 12/25/2024 Anticoagulation Visit [facility] [address] [place] [address] [address] [place] [address] Gayla Tejeda RN History of mitral valve replacement with mechanical valve (Primary Dx); Chronic anticoagulation 12/25/2024 1:30 PM CDT Office Visit [facility] [address] [place] [address] [address] [place] [phone] Enoch Ribeiro MD History of mitral valve replacement with mechanical valve (Primary Dx); Chronic anticoagulation; Cardiac pacemaker in situ; Nonischemic cardiomyopathy (HCC); Coronary artery disease involving yankton coronary artery of yankton heart without angina pectoris; Statin myopathy 12/08/2024 Anticoagulation Visit [facility] [address] [place] [address] [address] [place] [address] Indu Duarte RN History of mitral valve replacement with mechanical valve (Primary Dx); Chronic anticoagulation 11/20/2024 Anticoagulation Visit [facility] [address] [place] [address] Johanny Sanches RN History of mitral valve replacement with mechanical valve (Primary Dx); Chronic anticoagulation 11/04/2024 7:30 AM CDT Ancillary Procedure [facility] [address] [place] [address] Cardiac pacemaker in situ; Complete heart block (HCC); PAF (paroxysmal atrial fibrillation) (HCC) 10/31/2024 Anticoagulation Visit [facility] [address] [place] [address] Indu Duarte RN History of mitral valve replacement with mechanical valve (Primary Dx); Chronic anticoagulation 10/17/2024 Anticoagulation Visit [facility] [address] [place] [address] Godwin Landry RN History of mitral valve replacement with mechanical valve (Primary Dx); Chronic anticoagulation from Last 3 Months Allergies Active Allergy Reactions Criticality Noted Date Comments Amitriptyline Dizziness,Nausea only Low 04/12/2020 Fenofibrate Rash Medium 09/21/2015 Lisinopril Nausea & Vomiting,Nausea And Vomiting Low 04/01/2019 Causes TERRY, cramps, N/V Causes TERRY, cramps, N/V Losartan Stomach upset,Headache Low 03/31/2019 Oxycodone-Acetaminophen Unknown Low 09/14/2015 Penicillins Nausea only,Vomiting,Diarr hea Low Pregabalin Nausea & Vomiting,Nausea And Vomiting Low 11/15/2017 Prochlorperazine Other (See comments) Low Reaction: CRAMPING, Jvjubeo-Gdo-Trc Reductase Inhibitors Dizziness Low 09/25/2018 Terbinafine Unknown 10/29/2017 Medications calcium citrate-vitami n D3 (CITRACAL + D PETITES) 200 mg calcium -250 unit tablet 0 05/30/20 12 Active Additional Information Patient taking differently: TWO TABLETS DAILY, Reported on 12/25/2024 ferrous sulfate (IRON) 325 mg (65 mg iron) capsule, extended release take 1 by Oral route every day 0 0 08/19/19 16 Active aspirin (ASPIR-81) 81 mg tablet take 1 tablet by oral route every day 0 0 08/19/19 16 Active methotrexate 2.5 mg tablet take 2 by Oral route every week 0 0 10/11/19 16 Active Additional Information Patient taking differently:2.5 mg,4 times each week, Reported on 12/25/2024 topiramate (TOPAMAX) 100 mg tablet take 1 tablet by oral route 2 times every day 0 0 01/12/20 17 Active folic acid (FOLVITE) 1 mg tablet TAKE 1 TABLET BY MOUTH ONCE DAILY 30 tablet 5 07/11/20 18 Active ezetimibe (ZETIA) 10 mg tablet Take 1 tablet (10 mg total) by mouth daily. 30 tablet 11 09/25/19 19 Active abatacept (ORENCIA) 125 mg/mL auto-injector Orencia ClickJect 125 mg/mL subcutaneous auto-injector Active acetaminophen (TYLENOL ARTHRITIS PAIN ORAL) Take by mouth Active warfarin (COUMADIN) 1 mg tablet TAKE 1 TABLET BY MOUTH ONCE DAILY DIRECTED 90 tablet 07/17/20 22 Active cyanocobalamin (Vitamin B-12) 1,000 mcg tabletIndicati ons:Prevention of Vitamin B12 Deficiency Take 1 tablet (1,000 mcg total) by mouth daily Active carvediloL (COREG) 6.25 mg tablet TAKE 1 TABLET BY MOUTH TWICE DAILY WITH MEALS 180 tablet 12/17/19 25 Active warfarin (COUMADIN) 2 mg tablet Take 1 tablet by mouth once daily 30 tablet 12/25/19 25 Active carvediloL (COREG) 6.25 mg tablet TAKE 1 TABLET BY MOUTH TWICE DAILY WITH MEALS 180 tablet 09/22/19 25 025 Discontinued warfarin (COUMADIN) 2 mg tablet Take 1 tablet by mouth once daily 30 tablet 11/27/19 25 025 Discontinued Active Problems Problem Noted Date Diagnosed Date Paroxysmal SVT (supraventricular tachycardia) Atrial tachycardia 05/12/2022 Mixed hyperlipidemia 09/01/2021 Abnormal findings on diagnostic imaging of breas t 05/11/2021 Coronary artery disease invo lving yankton coronary artery of yankton heart without angina pectoris 02/21/2021 Statin myopathy 02/21/2021 Adhesive capsulitis of shoulder 07/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 continue to hold off . for vee will check with cardiology to make sure its ok to continue from her heart standpoint . cause of the risk of tachycardia and hypertension with savella i will taper it off for now till she is more stable from heart stand point . instructions for tapering off were given to her get labs today. Cardiac pacemaker in situ 08/01/2017 Overview (08/01/2017): Biotronik Dual Pacemaker. Dx; CHB. DOI 05/31/[address] Hutchins. Biotronik remote monitoring Q3 mo, office checks Q1 yr. Epistaxis 06/01/2016 Overview (11/16/2016): Bloody nose Upper respiratory tract infection 08/19/2015 Overview (11/16/2016): Upper respiratory infection with cough and congestion History of mitral valve replacement with mechani karley valve 07/12/2015 Overview (11/16/2016): H/O mitral valve replacement with mechanical valve Pruritus 07/12/2015 Overview (11/16/2016): Pruritus Chronic anticoagulation 07/12/2015 Overview (11/16/2016): Chronic anticoagulation History of tricuspid valve repair 07/12/2015 Overview (11/16/2016): History of tricuspid valve repair Mitral valve insufficiency 05/04/2015 Resolved Problems Problem Noted Date Diagnosed Date Resolved Date Dyslipidemia 03/31/2019 09/01/2021 Sick sinus syndrome 02/08/2018 09/25/19 19 Immunizations Immunization Administration Dates Next Due Influenza, Quadrivalent, Rec ombinant, Egg Free, Preservative Free, Intramuscular 04/22/2019 Influenza, Quadrivalent, Spl it, Preservative Free, Intramuscular 05/12/2018 Influenza, Trivalent, IM (MDV) 05/22/2014,2011 Influenza, Trivalent, Preservative Free, Intramu scular 04/21/2017 Social History Tobacco Use Types Packs/Day Years Used Date Smoking Tobacco: Former Cigarettes Q uit: 08/2022 Smokeless Tobacco: Never Tobacco Cessation:Counseling Given: Not Answered Alcohol Use Standard Drinks/Week Comments No 0 [...] on file 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 Gender Identity Not on file Sexual Orientation Not on file Last Filed Vital Signs Vital Sign Reading Time Taken Comments Blood Pressure 134/76 12/25/2024 12:58 PM CDT Pulse 75 12/25/2024 12:58 PM CDT Temperature 36.2 C (97.1 F) 04/07/2020 11:43 AM CDT Respiratory Rate 18 09/30/2024 1:43 PM LODE MINER BLASTING Oxygen Saturation 97% 12/25/2024 12:58 PM CDT Inhaled Oxygen Concentration - - Weight 81.8 kg (180 lb 6.4 oz) 12/25/2024 12:58 PM CDT Height 170.2 cm (5' 7) 12/25/2024 12:58 PM CDT Body Mass Index 28.25 12/25/2024 12:58 PM CDT Plan of Treatment Not on file Medical Devices Implanted Type Area Bed Worker Device Identifier Shelf Expiration Date Model / Serial / Lot Pacemaker-05/13 Implanted:05/13 (Quantity not on file) Pacemaker Chest Biot[employer]ik [employer] CHB ELUNA 8 DRT / [id number] / Procedures Procedure Name Priority Date/Time Associated Diagnosis Comments SCREENING MAMMOGRAM BILATERAL W RALPH Schedule Routine, Read Routine (OP Routine) 01/07/2025 11:54 AM CDT Screening mammogram, encounter for PROTIME-INR Routine 12/25/2024 PROTIME-INR Routine 12/08/2024 PROTIME-INR Routine 11/20/2024 DEVICE CHECK - REMOTE Routine 11/04/2024 8:45 AM CDT Cardiac pacemaker in situ Complete heart block (HCC) PAF (paroxysmal atrial fibrillation) (HCC) PROTIME-INR Routine 10/31/2024 PROTIME-INR Routine 10/17/2024 from Last 3 Months Results * Screening Mammogram Bilateral W Ralph (01/07/2025 11:54 AM CDT) Anatomical Region Laterality Modality Breast Bilateral Mammography Narrative 01/08/2025 4:38 PM CDT Mammogram Technique: Bilateral Digital Breast Tomosynthesis, Bilateral C-view 2D Screening mammogram. Views obtained: bilateral craniocaudal and bilateral mediolateral oblique. Computer Aided Detection was performed. Mammogram Findings: The present examination has been compared to prior imaging studies performed at [facility] on 01/18/2022, 12/21/2022 and 01/01/2024. There are [...] compared to prior imaging studies performed at [facility] on 01/18/2022, 12/21/2022 and 01/01/2024. There are scattered areas of fibroglandular density. There is no suspicious abnormality in either breast. There are no significant changes from the prior study. There is no suspicious abnormality in either breast. Impression: There is no mammographic evidence of malignancy. Annual screening mammography is recommended. OVERALL FINAL ASSESSMENT: BI-RADS CATEGORY 2: Benign. Result [facility] Self Screening Mammogram IMG MAMMO PROCEDURES Fi nal Result * (ABNORMAL) Protime-INR (12/25/2024) INR 2.70(A) 0.90 - 1.10 EXTERNAL LAB Blood Result [facility] Provider MD LAB BLOOD ORDERABLES Snow l Result Performing Organization Address City/[facility]/ZIP Co de Phone Number EXTERNAL LAB * (ABNORMAL) Protime-INR (12/08/2024) INR 2.90(A) 0.90 - 1.10 EXTERNAL LAB Blood Result [facility] Provider MD LAB BLOOD ORDERABLES Snow l Result EXTERNAL LAB * (ABNORMAL) Protime-INR (11/20/2024) Pathologist [facility] INR 3.20(A) 0.90 - 1.10 EXTERNAL LAB Blood Result [facility] Provider MD LAB BLOOD ORDERABLES Snow l Result Performing Organization Address [facility] [[email or web address]] Co de Phone Number EXTERNAL LAB * DEVICE CHECK - REMOTE (11/04/2024 8:45 AM CDT) Anatomical Region Laterality Modality Other Narrative 11/06/2024 10:39 AM CDT Biotronik Dual Pacemaker. Dx; CHB, AT/AF. DOI 05/31/[address] Hutchins. Biotronik remote monitoring Q3 mo, office checks Q1 yr. 8 hours AT on 03/15/22. Routine DDD Pacemaker Remote. Transmission attached. Battery status: Ok, 35% remaining battery life to CLAUDIO. Stable lead impedances, pacing and sensing thresholds. 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 5 AT/AF episodes noted, iegm;s AT, longest duration 4 hours on 08/29/2024. Average ventricular rate during AT/AF 60 bpm. No Ventricular high rate episodes detected. Medications: Coumadin, ASA 81 mg, Coreg. See scanned report. Office pacemaker follow up: 11/04/2025. Biotronik remote f/u 02/10/2025. Cari Lowery RN [facility] Hilton Ribeiro MD [facility] PRO CEDURES Final Result * (ABNORMAL) Protime-INR (10/31/2024) INR 3.60(A) 0.90 - 1.10 EXTERNAL LAB Blood Historical Provider MD LAB BLOOD ORDERABLES Snow l Result EXTERNAL LAB * (ABNORMAL) Protime-INR (10/17/2024) INR 3.20(A) 0.90 - 1.10 EXTERNAL LAB Blood 10/17/2024 Historical Provider MD LAB BLOOD ORDERABLES Snow l Result EXTERNAL LAB from Last 3 Months Insurance [facility] MEDICARE [facility] Address: [address] [address] [place] [address] IDPA IDPA [facility] MEDICARE [facility] MEDIC[facility] Address: [address] [address] [place] [address] IDPA [facility] MEDICARE [facility] Address: [address] [address] [place] [address] Care Teams Nail Machine Operator Relationship Specialty Start Date End Date Adriano Powers DO PCP - General Internal Medicine 01/17/21
--- OUTSIDE RECORDS SUMMARY | 2025-01-09 09:05 | XMS_ITS | Clinical Summary ---
Author [facility] Address [address] [address] Care Team Providers Care Bilingual Instructor Name Role Phone Adriano Powers Primary Care Provider Allergies Active Allergy Reactions Criticality Noted Date Comments Amitriptyline Dizziness,Nausea and Vomiting Low 04/12/2020 Fenofibrate Rash Low 09/21/2015 Lisinopril Nausea and Vomiting Low 04/01/2019 Causes TERRY, cramps, N/V Causes TERRY, cramps, N/V Causes TERRY, cramps, N/V Losartan Nausea and Vomiting,Headache Low 03/31/2019 Oxycodone-Acetaminophen Unknown Low 09/14/2015 Penicillins Diarrhea,Nausea and Vomiting Low 06/09/2014 Pregabalin Nausea and Vomiting Low 11/15/2017 Prochlorperazine Other (See Comments) Low 05/01/2023 Reaction: CRAMPING, Reaction: CRAMPING, Ngsnubv-Bqu-Jnl Reductase Inhibitors Dizziness Low 09/25/2018 Terbinafine Unknown 10/29/2017 Tofacitinib Unknown 08/21/2019 Medications warfarin (COUMADIN) 1 mg tablet TAKE 1 TABLET BY MOUTH ONCE DAILY DIRECTED 2 Active warfarin (COUMADIN) 2 mg tablet Take 1 Tablet by mouth daily. 3 Active carvediloL (COREG) 6.25 mg tablet Take 1 Tablet by mouth 2 times daily with meals. 3 Active abatacept 125 mg/mL Auto-Injector Orencia ClickJect 125 mg/mL subcutaneous auto-injector Active ferrous sulfate 325 mg (65 mg iron) tablet Take 325 mg by mouth daily. Active methotrexate (RHEUMATREX) 5 mg Tablet Take 5 mg by mouth every 7 days. Active folic acid (FOLVITE) 1 mg tablet Take 1 mg by mouth daily. Active topiramate (TOPAMAX) 100 mg tablet Take 100 mg by mouth 2 times daily. Active aspirin (ECOTRIN EC) 81 mg Tablet, Delayed Release (E.C.) Take 81 mg by mouth daily. Active Active Problems No known active problems Encounters Date Type Department Care Team Description 01/06/2025 External Device Data [facility] ABSTRACTION Provider, Abstract 12/31/2024 External Device Data [facility] ABSTRACTION Provider, Abstract 12/30/2024 External Device Data [facility] ABSTRACTION Provider, Abstract 11/11/2024 External Device Data [facility] ABSTRACTION Provider, Abstract 11/07/2024 12:45 PM CDT Office Visit [facility] [address] [address] Carl Sweet MD Chronic anemia (Primary Dx) 10/29/2024 External Device Data [facility] ABSTRACTION Provider, Abstract 10/21/2024 External Device Data [facility] ABSTRACTION Provider, Abstract 10/21/2024 External Device Data [facility] ABSTRACTION Provider, Abstract 10/20/2024 External Device Data [facility] ABSTRACTION Provider, Abstract 10/18/2024 External Device Data [facility] ABSTRACTION Provider, Abstract 10/17/2024 External Device Data [facility] ABSTRACTION Provider, Abstract 10/14/2024 External Device Data [facility] ABSTRACTION Provider, Abstract from Last 3 Months Family History Medical History Relation Name Comments Heart Disease Brother 1 Heart Disease Mother Relation Name Status Comments Brother 1 Brother 2 Daughter Alive Father Mother Sister 1 Alive Sister 2 Alive Sister 3 Alive Sister 4 Alive Son Alive Social History Tobacco Use Types Packs/Day Years Used Date Smoking Tobacco: Former Cigarettes Q uit: 12/2022 Smokeless Tobacco: Never Tobacco Cessation:Counseling Given: Not Answered Alcohol Use Standard Drinks/Week Comments Never 0 (1 standard drink = 0.6 oz pur e alcohol) Comments Unknown Sex and Gender Information Value Date Recorded Sex Assigned at Not on file Legal Sex Female 3:44 PM CDT Gender Identity Not on file Sexual Orientation Not on file Last Filed Vital Signs Vital Sign Reading Time Taken Comments Blood Pressure 112/57 11/07/2024 11:55 AM CDT Pulse 67 11/07/2024 11:55 AM CDT Temperature 35.9 C (96.6 F) 11/07/2024 11:55 AM CDT Respiratory Rate 16 11/07/2024 11:55 AM CDT Oxygen Saturation 97% 11/07/2024 11:55 AM CDT Inhaled Oxygen Concentration - - Weight 78.7 kg (173 lb 6.4 oz) 11/07/2024 11:55 AM CDT Height - - Body Mass Index - - Plan of Treatment Upcoming Encounters Date Type Department Care Team (Late st Contact Info) Description 05/12/2025 11:30 AM CDT Office Visit [facility] Oncology and Hematology [facility] [address] [facility] [address] [place] [address] Carl Sweet MD [address] [place] [address] Health Maintenance Due Date Last Done Comments Pre-Diabetes and Diabetes Screening 1964 DTAP/TDAP/TD VACCINES (1 - Tdap) 1983 HPV/Cotest (21-29) 1985 CERVICAL CANCER SCREENING 1994 HPV/Cotest (30-65) 1994 PAP SMEAR 1994 COLORECTAL SCREENING 2009 Colorectal Cancer Screening 2009 FIT-DNA Q 3 years 2009 FIT/FOBT Q 1 year 2009 Flex Sig/CT Colonography Q 5 years 2009 ZOSTER VACCINE (1 of 2) 2014 INFLUENZA VACCINE (#1) 2024 9, 05/12/2018, 04/21/2017, Additional history exists BREAST CANCER SCREENING 12/31/2024 01/01/20 24, 01/01/2024, 12/21/2022, Additional history exists RSV VACCINE (60+ or ) (1 - 1-dose 75+ series) 2039 HEPATITIS B VACCINES Aged Out No long er eligible based on patient's age to complete this topic Insurance [place] [address] [place] [address] DUAL COMPLETE PPO DSNP [facility] [id number] Care Teams Bilingual Instructor Relationship Specialty Start Date End Date Adriano Powers DO [address] [facility] [address] [place] [address] PCP - General Internal Medicine 05/01/23
--- OUTSIDE RECORDS SUMMARY | 2025-01-09 09:05 | XMS_ITS | Clinical Summary ---
Author Organization [facility] Address [facility] [place] [address] Care Team Providers Care Flask Handler Name Role Phone Adriano Powers DO Primary Care Provider [phone]- [phone] Allergies Active Allergy Reactions Criticality Noted Date Comments Amitriptyline Dizziness,Nausea only Low 04/12/2020 Fenofibrate Rash Medium 09/21/2015 Lisinopril Nausea & Vomiting,Nausea And Vomiting Low 04/01/2019 Causes TERRY, cramps, N/V Causes TERRY, cramps, N/V Losartan Stomach upset,Headache Low 03/31/2019 Oxycodone-Acetaminophen Unknown Low 09/14/2015 Penicillins Nausea only,Vomiting,Diarr hea Low Pregabalin Nausea & Vomiting,Nausea And Vomiting Low 11/15/2017 Prochlorperazine Other (See comments) Low Reaction: CRAMPING, Mthyqnz-Pyd-Fsu Reductase Inhibitors Dizziness Low 09/25/2018 Terbinafine Unknown [...] DAILY WITH MEALS 180 tablet 09/22/19 25 05 025 Discontinued warfarin (COUMADIN) 2 mg tablet Take 1 tablet by mouth once daily 30 tablet 11/27/19 25 025 Discontinued Active Problems Problem Noted Date Diagnosed Date Paroxysmal SVT (supraventricular tachycardia) Atrial tachycardia 05/12/2022 Mixed hyperlipidemia 09/01/2021 Abnormal findings on diagnostic imaging of breas t 05/11/2021 Coronary artery disease invo lving [place] coronary artery of [place] heart without angina pectoris 02/21/2021 Statin myopathy [...] 09/01/2021 Sick sinus syndrome 02/08/2018 09/25/19 19 Encounters Date Type Department Care Team Description 01/07/2025 11:34 AM CDT - 01/07/2025 11:59 PM CDT Hospital Encounter [facility] ([facility]) [address] [place] [address] Screening mammogram, encounter for Discharge Disposition: Discharge to home or self care 12/25/2024 1:30 PM CDT Office Visit [facility] [address] [facility] [address] [place] [address] Enoch Ribeiro MD History of mitral valve replacement with mechanical valve (Primary Dx); Chronic anticoagulation; Cardiac pacemaker in situ; Nonischemic cardiomyopathy (HCC); Coronary artery disease involving [place] coronary artery of [place] heart without angina pectoris; Statin myopathy 12/25/2024 Anticoagulation Visit [facility] Cardiology [address] [place] [address] [address] [place] [address] Gayla Tejeda RN History of mitral valve replacement with mechanical valve (Primary Dx); Chronic anticoagulation 12/08/2024 Anticoagulation Visit [facility] Cardiology [address] [place] [address] [address] [place] [phone] Indu Duarte RN History of mitral valve replacement with mechanical valve (Primary Dx); Chronic anticoagulation 11/20/2024 Anticoagulation Visit [facility] Cardiology [address] [place] [address] [address] [place] [phone] Johanny Sanches RN History of mitral valve replacement with mechanical valve (Primary Dx); Chronic anticoagulation 11/04/2024 7:30 AM CDT Ancillary Procedure [facility] [address] [facility] [address] [place] [address] Cardiac pacemaker in situ; Complete heart block (HCC); PAF (paroxysmal atrial fibrillation) (HCC) 10/31/2024 Anticoagulation Visit [facility] Cardiology [address] [place] [address] [address] [place] [address] Indu Duarte RN History of mitral valve replacement with mechanical valve (Primary Dx); Chronic anticoagulation 10/17/2024 Anticoagulation Visit [facility] Cardiology [address] [place] [address] [address] [place] [phone] Godwin Landry RN History of mitral valve replacement with mechanical valve (Primary Dx); Chronic anticoagulation from Last 3 Months Immunizations Immunization Administration Dates Next Due Influenza, Quadrivalent, Rec ombinant, Egg Free, Preservative Free, Intramuscular 04/22/2019 Influenza, Quadrivalent, Spl it, Preservative Free, Intramuscular 05/12/2018 Influenza, Trivalent, IM (MDV) 05/22/2014,2011 Influenza, Trivalent, Preservative Free, Intramu scular 04/21/2017 Surgical History Surgery Date Site/Laterality Comments AURAL ATRESIA REPAIR 08/13/2014 - 08/12/2015 Medical History Medical History Date Comments Hx Other Medical Dentures Fibrositis Fibromyalgia Gastroesophageal reflux disease GERD Hx Other Medical Headache, migra ine Hyperlipidemia Hyperlipidemia Hx Other Medical 2013 restless leg sy ndrome Hx Other Medical spinal stenosis Heart disease Migraine Thyroid condition Rheumatoid aortitis Osteoporosis Family History Medical History Relation Name Comments Heart attack Brother Myocardial infa rction; Cancer Other 1 Family history of Cancer; Diabetes Other 2 Family history of Diabetes mellitus; Heart attack Other 3 Family history of Myocardial infarction; Heart disease Other 4 Family history of Heart disease; Relation Name Status Comments Brother Other 1 Other 2 Other 3 Other 4 Social History Tobacco Use Types Packs/Day Years [...] on file 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 Gender Identity Not on file Sexual Orientation Not on file Obstetrics History Last Filed Vital Signs Vital Sign Reading Time Taken Comments Blood Pressure 134/76 12/25/2024 12:58 PM CDT Pulse 75 12/25/2024 12:58 PM CDT Temperature 36.2 C (97.1 F) 04/07/2020 11:43 AM CDT Respiratory Rate 18 09/30/2024 1:43 PM DRYERMAN/WOMAN Oxygen Saturation 97% 12/25/2024 12:58 PM CDT Inhaled Oxygen Concentration - - Weight 81.8 kg (180 lb 6.4 oz) 12/25/2024 12:58 PM CDT Height 170.2 cm (5' 7) 12/25/2024 12:58 PM CDT Body Mass Index 28.25 12/25/2024 12:58 PM CDT Plan of Treatment Health Maintenance Due Date Last Done Comments Cervical Cancer Screening 1964 Colon Cancer Screening-Colonoscopy 1964 Depression Screening 1964 Hepatitis C Screening 1964 DTaP/Tdap/Td Vaccine (1 - Tdap) 1975 Hepatitis B Screening 1982 Regular Well Visit/Exam 18-64 1982 Pneumococcal vaccine <65 (1 of 2 - PCV) 1983 Zoster Vaccine (1 of 2) 1983 Influenza Vaccine (Season Ended) 2025 04/22/2019, 05/12/2018, 04/21/2017, Additional history exists Breast Cancer Screening-Mammogram 01/07/2026 01/07/2025, 01/01/2024, 12/21/2022, Additional history exists Medical Devices Implanted Type Area Machine Brusher Device Identifier Shelf Expiration Date Model / Serial / Lot Pacemaker-05/13 Implanted:05/13 (Quantity not on file) Pacemaker Chest [employer] [facility] 8 T / [id number] / Procedures Procedure Name Priority Date/Time Associated [...] compared to prior imaging studies performed at [facility] on 01/18/2022, 12/21/2022 and 01/01/2024. There [...] compared to prior imaging studies performed at [facility] on 01/18/2022, 12/21/2022 and 01/01/2024. There [...] 2.70(A) 0.90 - 1.10 EXTERNAL LAB Blood [facility] Provider LAB BLOOD ORDERABLES Snow l Result EXTERNAL LAB * (ABNORMAL) Protime-INR (12/08/2024) INR 2.90(A) 0.90 - 1.10 EXTERNAL LAB Blood Historical Provider MD LAB BLOOD ORDERABLES Snow l Result EXTERNAL LAB * (ABNORMAL) Protime-INR (11/20/2024) INR 3.20(A) 0.90 - 1.10 EXTERNAL LAB Blood Historical Provider MD LAB BLOOD ORDERABLES Snow l Result EXTERNAL LAB * DEVICE CHECK - REMOTE [...] impedances, pacing and sensing thresholds. Presenting rhythm: -SOIL TECHNOLOGIST. AP- 40%, SOIL TECHNOLOGIST- 99%. 5 AT/AF episodes noted, iegm;s AT, longest duration 4 hours on 08/29/2024. Average ventricular rate during AT/AF 60 bpm. No Ventricular high rate episodes detected. Medications: Coumadin, ASA 81 mg, Coreg. See scanned report. Office pacemaker follow up: 11/04/2025. [employer] remote f/u 02/10/2025. Cari Lowery, [facility] Hilton Ribeiro MD [facility] CARDIAC SERVICES PRO CEDURES Final Result * (ABNORMAL) Protime-INR (10/31/2024) INR 3.60(A) 0.90 - 1.10 EXTERNAL LAB Blood Historical Provider MD LAB BLOOD ORDERABLES Snow l Result EXTERNAL LAB * (ABNORMAL) Protime-INR (10/17/2024) INR 3.20(A) 0.90 - 1.10 EXTERNAL LAB Blood 10/17/2024 Historical Provider MD LAB BLOOD ORDERABLES Snow l Result EXTERNAL LAB from Last 3 Months Insurance [facility] MEDICARE ADVANTAGE IDPA IDPA [facility] MEDICARE ADVANTAGE IDPA [facility] MEDICARE ADVANTAGE Care Teams Flask Handler Relationship Specialty Start Date End Date Adriano Powers DO PCP - General Internal Medicine 01/17/21
--- OUTSIDE RECORDS SUMMARY | 2025-01-09 09:05 | XMS_ITS | CONTINUITY OF CARE DOCUMENT ---
Author Name andreajoaquina andreajoaquina Address Unknown Organization [facility] Address [id number] [place] [address] [address] [address] Phone [phone] Care Team Providers Care Ice Puller Name Role Phone All Hutchins DO Unavailable SHANTEL BONILLA, MICHELE Unavailable [phone] THU BONILLA, ZONIA Unavailable [phone] PROBLEMS Condition Status Date Provider Notes Complete heart block active Elma Tika Status post DC pacemaker aline cement - BIOTRONIK active Maria Guadalupe Bowling RN CHF active Maria Guadalupe Bowling RN Complete heart block active Maria Guadalupe Bowling RN Atrial flutter active All Hutchins DO ENCOUNTERS Date Type Provider Location Encounter Diagnosis - In-person encounter Office Visit All Hutchins DO [facility] Atrial flutter - In-person encounter Office Visit All Hutchins DO [facility] Office VITAL SIGNS Date Observation Value Provider Body Mass Index (Ratio) 20.68 kg/m2 Jordon Hutchins DO respiratory rate E&M 17 /min Caridad Reveles pulse rate 76 /min Caridad Reveles oxygen saturation, oximetry 98 % Caridad Reveles blood pressure, cuff size regular Dean Reveles blood pressure, diastolic 80 mm[Hg] Dean Reveles blood pressure, systolic 132 mm[Hg] Merrick Reveles weight E&M 136 [lb_av] Caridad Reveles height E&M 68 [in_i] Caridad Reveles blood pressure, diastolic 70 mm[Hg] Shilpa Prabhakar blood pressure, systolic 100 mm[Hg] Janine Prabhakar pulse rate 71 /min Rina Prabhakar oxygen saturation, oximetry 98 % Rina Prabhakar respiratory rate E&M 16 /min Rina Prabhakar Body Mass Index (Ratio) 23.72 kg/m2 Demetrius Prabhakar weight E&M 156 [lb_av] Rina Prabhakar height E&M 68 [in_i] Rina Prabhakar ALLERGIES Allergy Name Onset Date Reaction Criticality Status FENOFIBRATE Low Criticality active PERCOCET Low Criticality active PENICILLIN Low Criticality active HISTORY OF MEDICATION USE Medication Status Instructions Dates Provider Indications Com ments METHOTREXATE 2.5 MG ORAL TABLET active once a week Caridad Reveles FOLIC ACID 1 MG ORAL TABLET active 1 tab daily Caridad Reveles TOPIRAMATE 50 MG ORAL TABLET active once daily 9 Rina GuamanJoel LEFLUNOMIDE 10 MG ORAL TABLET completed two tab once daily 9 - 5 Caridad Reveles ORENCIA 125 MG/ML SUBCUTANEOUS SOLUTION PREFILLED SYRINGE active wkly 9 Rina CunninghamJose Luis SPIRONOLACTONE 25 MG ORAL TABLET completed ONE TAB. DAILY 2 - 9 Rina OJose Luis PREDNISONE 5 MG ORAL TABLET completed 1 to 2 tabs daily 2 - 5 Caridad Reveles TRAMADOL HCL 50 MG ORAL TABLET active 2 All Hutchins DO [facility] VITAMIN C 1000 MG ORAL TABLET completed 2 - 9 Rina O'Joel CITRACAL +D3 250-107-500 MG-MG-UNIT ORAL TABLET CHEWABLE active 2 All Hutchins DO ASPIRIN 81 MG ORAL TABLET active ONE TAB. DAILY 2 All Hutchins DO NORCO 5-325 MG ORAL TABLET active 2 All Hutchins DO FERROUS SULFATE 325 (65 Fe) MG ORAL TABLET active ONE PER DAY 2 All Hutchins DO FUROSEMIDE 40 MG ORAL TABLET completed 2 - 9 Rina Vanna LEVOTHYROXINE SODIUM 25 MCG ORAL TABLET active ONE TAB. DAILY 2 All Hutchins DO CARVEDILOL 6.25 MG ORAL TABLET active ONE TAB. TWICE DAILY 2 All Hutchins DO FENOFIBRATE 160 MG ORAL TABLET completed ONE TAB. DAILY 2 - 9 Rina Vanna [facility] OMEPRAZOLE 20 MG ORAL TABLET DELAYED RELEASE active 2 All Hutchins DO WARFARIN SODIUM 1 MG ORAL TABLET active 2 All Hutchins DO SOCIAL HISTORY Date Observation Value Provider smoking/tobacco cess ation, patient education and counseling yes All Grahamcock social history E&M S moking History: P una currently smokes every day. P una has been counseled to quit. All Grahamcock smoking, date started 1981 All Clatsop DO smoking history, tot al pack/day 1/2 p All Hutchins cigarette use yes All montgomery smoking status Current every day smoker D taqueria Hutchins social history reviewed E&M nawaf ewed - no changes required Allsvitlana Grahamcock smoking, date started 1981 Rina Prabhakar smoking history, tot al pack/day 1/2 p Rina Prabhakar cigarette use yes Rina Prabhakar smoking status Current every day smoker M dong Prabhakar FAMILY HISTORY Family Member Condition Mother Family History of Co ronary Artery Disease: INSURANCE PROVIDERS Payer name Policy type / Coverage type [employer] red constitution party ID [facility] Medicaid 0 [id number] [facility] MEDICARE COMPLETE HMO Other [id number] TREATMENT PLAN Date Name Performer EP:7 days of atrial flutter, 0% burden C HB with controlled HR no symptoms o n warfarin All Hutchins DO EP:normal function All taylor DO EP: n ow pacer dependent with normal pacer function All Hutchins DO EP:currently in card iac rehab. encourage exercise at home outside of rehab. diastolic with preserved LVF All Hutchins DO EP:now pacer dependent with norm al pacer function All Hutchins DO EP:check in office t glenna normal pacer funciton. MEAN HR trending down and HR varialblity all increasing indicating improving cardiac performance All Hutchins DO HISTORY OF PROCEDURES Procedure Date Procedure Name Provider Procedure Notes S tatus EKG All Hutchins DO completed SNOMED-CT: [id number] Current Medications Documented All Hutchins DO completed ICM Interrogation, Remote (Prof) All Grahamcock DO INTERROGATION EVAL REMOTE </30 D CV MNTR SYS completed ICM Interrogation, Remote (Tech) All Clatsop DO INTERROGATION EVAL REMOTE </30 D TECH REVIEW completed ICM Interrogation, Remote (Prof) All Grahamcock DO INTERROGATION EVAL REMOTE </30 D CV MNTR SYS completed ICM Interrogation, Remote (Tech) All Clatsop DO INTERROGATION EVAL REMOTE </30 D TECH REVIEW completed ICM Interrogation, Remote (Prof) All Grahamcock DO INTERROGATION EVAL REMOTE </30 D CV MNTR SYS completed Pacemaker Interrogation, Remote (Tech) All Clatsop DO INTERROGATION REMOTE </90 D MACHINE FILLER SERVICER REVIEW completed Pacemaker Interrogation, Remote (Prof) All Clatsop DO INTERROGATION EVAL REMOTE </90 D 1/2/WAREHOUSE CHECKER LEAD P completed ICM Interrogation, Remote (Prof) All Clatsop DO INTERROGATION EVAL REMOTE </30 D CV MNTR SYS completed ICM Interrogation, Remote (Tech) All Clatsop DO INTERROGATION EVAL REMOTE </30 D TECH REVIEW completed ICM Interrogation, Remote (Prof) All Clatsop DO INTERROGATION EVAL REMOTE </30 D CV MNTR SYS completed ICM Interrogation, Remote (Tech) All Clatsop DO INTERROGATION EVAL REMOTE </30 D TECH REVIEW completed ICM Interrogation, Remote (Prof) All Clatsop DO INTERROGATION EVAL REMOTE </30 D CV MNTR SYS completed Pacemaker Interrogation, Remote (Tech) All Clatsop DO INTERROGATION REMOTE </90 D MACHINE FILLER SERVICER REVIEW completed Pacemaker Interrogation, Remote (Prof) All Clatsop DO INTERROGATION EVAL REMOTE </90 D 1/2/WAREHOUSE CHECKER LEAD P completed ICM Interrogation, Remote (Prof) All Clatsop DO INTERROGATION EVAL REMOTE </30 D CV MNTR SYS completed ICM Interrogation, Remote (Tech) All Clatsop DO INTERROGATION EVAL REMOTE </30 D TECH REVIEW completed ICM Interrogation, Remote (Prof) All Clatsop DO INTERROGATION EVAL REMOTE </30 D CV MNTR SYS completed ICM Interrogation, Remote (Tech) All Clatsop DO INTERROGATION EVAL REMOTE </30 D TECH REVIEW completed ICM Interrogation, Remote (Prof) All Clatsop DO INTERROGATION EVAL REMOTE </30 D CV MNTR SYS completed Pacemaker Interrogation, Remote (Tech) All Clatsop DO INTERROGATION REMOTE </90 D MACHINE FILLER SERVICER REVIEW completed Pacemaker Interrogation, Remote (Prof) All Clatsop DO INTERROGATION EVAL REMOTE </90 D 1/2/WAREHOUSE CHECKER LEAD P completed ICM Interrogation, Remote (Prof) All Clatsop DO INTERROGATION EVAL REMOTE </30 D CV MNTR SYS completed ICM Interrogation, Remote (Tech) All Clatsop DO INTERROGATION EVAL REMOTE </30 D TECH REVIEW completed ICM Interrogation, Remote (Prof) All Clatsop DO INTERROGATION EVAL REMOTE </30 D CV MNTR SYS completed ICM Interrogation, Remote (Tech) All Hutchins DO INTERROGATION EVAL REMOTE </30 D TECH REVIEW completed EKG All Hutchins DO completed SNOMED-CT: [id number] Current Medications Documented All Hutchins DO completed
[2025-01-09 09:49] LABS: Basophils Percent Auto 0.3 % (0.2-1.2); Eosinophils Absolute Auto 0.1 K/mm3 (0-0.3); Eosinophils Percent Auto 2.9 % (0-4.4); Hematocrit 41.7 % (37.0-47.0); Hemoglobin 13.9 g/dL (12.0-15.0); Immature Granulocyte Absolute 0.01 K/mm3 (0.00-0.031); Immature Granulocyte Percent A 0.3 % (0-0.5); Lymphocytes Absolute Auto 1.58 K/mm3 (0.9-3.2); Lymphocytes Percent Auto 42.4 % (18.3-44.2); Mean Corpuscular HGB Conc 33.3 g/dl (32-36); Mean Corpuscular Hemoglobin 32.2 pg (26-34); Mean Corpuscular Volume 96.5 fl (80-100); Mean Platelet Volume 10.2 fl (7.4-10.4); Monocytes Absolute Auto 0.4 K/mm3 (0.1-0.6); Monocytes Percent Auto 9.9 % (2.6-8.5); Neutrophils Absolute Auto 1.7 K/mm3 (1.3-6.7); Neutrophils Percent Auto 44.2 % (45.5-73.1); Platelet Count Result 132 k/mm3 (150-375); Red Blood Count 4.32 M/mm3 (4.2-5.4); Red Cell Distribution Width 13.2 % (11.5-14.5); White Blood Count 3.7 K/mm3 (4.5-10.0)
[2025-01-09 10:01] LABS: Alanine Aminotransferase 31 U/L (6-35); Albumin Level 4.1 g/dL (3.5-5.1); Alkaline Phosphatase 186 U/L (38-126); Anion Gap 6 mmol/L (4-12); Aspartate Amino Transferase 43 U/L (14-36); Bilirubin,Total 0.5 mg/dL (0.2-1.3); Blood Urea Nitrogen 21 mg/dL (7-17); CRP 0.7 mg/dL (<1.0); Calcium 9.2 mg/dL (8.4-10.2); Carbon Dioxide 24 mmol/L (22-30); Chloride 111 mmol/L (98-107); Estimated Glomerular Filt Rate 57; Glucose 112 mg/dL (65-110); Potassium 3.8 mmol/L (3.4-5.0); Sodium 141 mmol/L (137-145)
[2025-01-09 11:28] LABS: Erythrocyte Sedimentation Rate 33 mm/hr (0-20)
== END 2025-01-09 08:59 | disposition home or self-care (01) ==
PROVIDERS: PCP Clinical Nurse Specialist; Referring Provider Emergency Medicine Emergency Medical Services; Visit Provider Clinical Nurse Specialist
DX: E07.9 Disorder of thyroid, unspecified (principal); M05.9 Rheumatoid arthritis with rheumatoid factor, unspecified; Z79.899 Other long term (current) drug therapy
CPT/HCPCS: 36415; 80053; 84443; 85025; 85652; 86140

== ENCOUNTER 2025-04-23 14:45 | Outpatient (NON) | payer MEDICARE, MEDICAID, SELFPAY ==
--- OUTSIDE RECORDS SUMMARY | 2025-04-23 16:25 | XMS_ITS | Encounter Summary ---
Author Organization [facility] Healthcare Address [address] [place] [address] Care Team Providers Care Stave Log Cut Off Saw Operator Name Role Phone Adriano Powers DO Primary Care Provider [phone]- [phone] Encounter Details Date Type Department Care Team (Late st Contact Info) Description 08/17/2023 Orders Only [facility] Health Information Management [address] [place] [address] Scanning, Provider Social History Tobacco Use Types Packs/Day Years Used Date Smoking Tobacco: Every Day Cigarettes Smokeless Tobacco: Never Alcohol Use Standard Drinks/Week [...] file 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 Gender Identity Not on file Sexual Orientation Not on file documented as of this encounter Plan of Treatment Not on file documented as of this encounter Procedures Procedure Name Priority Date/Time Associated Diagnosis Comments SCAN - LABS 08/17/2023 documented in this encounter Results * SCAN - LABS (08/17/2023) us Provider Scanning Final Result documented in this encounter Visit Diagnoses Not on filedocumented in this encounter Care Teams Stave Log Cut Off Saw Operator Relationship Specialty Start Date End Date Adriano Powers DO PCP - General Internal Medicine 01/17/21 documented as of this encounter
--- OUTSIDE RECORDS SUMMARY | 2025-04-23 16:25 | XMS_ITS | Encounter Summary ---
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
--- OUTSIDE RECORDS SUMMARY | 2025-04-23 16:25 | XMS_ITS | Encounter Summary ---
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
--- OUTSIDE RECORDS SUMMARY | 2025-04-23 16:25 | XMS_ITS | Encounter Summary ---
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
--- OUTSIDE RECORDS SUMMARY | 2025-04-23 16:25 | XMS_ITS | Clinical Summary ---
Author Organization [facility] Address [address] [place] [address] Care Team Providers Care Novelty Worker Name Role Phone Adriano Powers Primary Care [...] Comments) Low 05/01/2023 Reaction: CRAMPING, Reaction: CRAMPING, Cfpmcyq-Xej-Iry Reductase Inhibitors Dizziness Low 09/25/2018 Terbinafine Unknown [...] Encounters Date Type Department Care Team Description 03/17/2025 External Device Data STL ABSTRACTION Provider, Abstract 02/03/2025 External Device Data ST[facility] ABSTRACTION Provider, Abstract [...] Description 05/12/2025 11:30 AM CDT Office Visit [facility] Oncology and H[facility]ology - [place] [address] [place] [address] Carl Sweet MD [address] [facility] [address] [place] [address] Health Maintenance Due Date Last Done Comments Pre-Diabetes and Diabetes Screening 1964 DTAP/TDAP/TD VACCINES (1 - Tdap) 1983 HPV/Cotest (21-29) 1985 CERVICAL CANCER SCREENING 1994 HPV/Cotest (30-65) 1994 PAP SMEAR 1994 COLORECTAL SCREENING 2009 Colorectal Cancer Screening 2009 FIT-DNA Q 3 years 2009 FIT/FOBT Q 1 year 2009 Flex Sig/CT Colonography Q 5 years 2009 ZOSTER VACCINE (1 of 2) 2014 BREAST CANCER SCREENING 12/31/2024 01/01/20 24, 01/01/2024, 12/21/2022, Additional history exists INFLUENZA VACCINE (#1) 2025 9, 05/12/2018, 04/21/2017, Additional history exists RSV VACCINE (60+ or ) (1 - 1-dose 75+ series) 2039 Insurance [place] [address] DUAL COMPLETE PPO DSNP [facility] [id number] Care Teams Novelty Worker Relationship Specialty Start Date End Date Adriano Powers DO [address] [address] PCP - General Internal Medicine 05/01/23
--- OUTSIDE RECORDS SUMMARY | 2025-04-23 16:25 | XMS_ITS | Encounter Summary ---
Author Organization 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 Gender Identity Not on file Sexual Orientation Not on file documented as of this encounter Plan of Treatment Not on file documented as of this encounter Procedures Procedure Name Priority Date/Time Associated Diagnosis Comments SCAN - LABS 12/25/2024 documented in this encounter Results * SCAN - LABS (12/25/2024) us Provider Scanning Final Result documented in this encounter Visit Diagnoses Not on filedocumented in this encounter Care Teams Middle School Art Teacher Relationship Specialty Start Date End Date Adriano Powers DO PCP - General Internal Medicine 01/17/21 documented as of this encounter
--- OUTSIDE RECORDS SUMMARY | 2025-04-23 16:25 | XMS_ITS | Encounter Summary ---
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
--- OUTSIDE RECORDS SUMMARY | 2025-04-23 16:25 | XMS_ITS | Encounter Summary ---
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 Gender Identity Not on file Sexual Orientation Not on file documented as of this encounter Plan of Treatment Not on file documented as of this encounter Procedures Procedure Name Priority Date/Time Associated Diagnosis Comments SCAN - LABS 09/23/2024 documented in this encounter Results * SCAN - LABS (09/23/2024) us Provider Scanning Final Result documented in this encounter Visit Diagnoses Not on filedocumented in this encounter Care Teams Distilling Department Supervisor Relationship Specialty Start Date End Date Adriano Powers DO PCP - General Internal Medicine 01/17/21 documented as of this encounter
--- OUTSIDE RECORDS SUMMARY | 2025-04-23 16:25 | XMS_ITS | Encounter Summary ---
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
--- OUTSIDE RECORDS SUMMARY | 2025-04-23 16:25 | XMS_ITS | Encounter Summary ---
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
--- OUTSIDE RECORDS SUMMARY | 2025-04-23 16:25 | XMS_ITS | Clinical Summary ---
Author Organization [facility] Address [facility] [place] [address] Care Team Providers Care Group Art Supervisor Name Role Phone J LuisAdriano stern DO Primary Care Provider +1- [phone] Allergies Active Allergy Reactions Criticality Noted Date Comments Amitriptyline Dizziness,Nausea only Low 04/12/2020 Fenofibrate Rash Medium 09/21/2015 Lisinopril Nausea & Vomiting,Nausea And Vomiting Low 04/01/2019 Causes TERRY, cramps, N/V Causes TERRY, cramps, N/V Losartan Stomach upset,Headache Low 03/31/2019 Oxycodone-Acetaminophen Unknown Low 09/14/2015 Penicillins Nausea only,Vomiting,Diarr hea Low Pregabalin Nausea & Vomiting,Nausea And Vomiting Low 11/15/2017 Prochlorperazine Other (See comments) Low Reaction: CRAMPING, Qfwwvgp-Cgz-Drp Reductase Inhibitors Dizziness Low 09/25/2018 Terbinafine Unknown [...] MOUTH TWICE DAILY WITH MEALS 180 tablet 03/16/20 25 Active warfarin (COUMADIN) 2 mg tablet Take 1 tablet by mouth once daily 30 tablet 04/14/20 25 Active warfarin (COUMADIN) 2 mg tablet Take 1 tablet by mouth once daily 30 tablet 03/16/20 25 025 Discontinued Active Problems Problem Noted Date Diagnosed Date Paroxysmal SVT (supraventricular tachycardia) Atrial tachycardia 05/12/2022 Mixed hyperlipidemia 09/01/2021 Abnormal findings on diagnostic imaging of breas t 05/11/2021 Coronary artery disease invo lving [place] coronary artery of [place] heart without angina pectoris 02/21/2021 Statin myopathy 02/21/2021 Adhesive capsulitis of shoulder 07/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 continue to hold off . for orencia will check with cardiology to make sure [...] Encounters Date Type Department Care Team Description 03/30/2025 Anticoagulation Visit [facility] Cardiology [address] [place] [address] Indu Duarte RN History of mitral valve replacement with mechanical valve (Primary Dx); Chronic anticoagulation 03/27/2025 Orders Only [facility] Health Information Management [address] [place] [address] Scanning, Provider 03/18/2025 Telephone [facility] Cardiology [address] [place] [address] Godwin Feliciano MD 2025 Anticoagulation Visit [facility] Cardiology [address] [place] [address] [place] [phone] Indu Duarte RN History of mitral valve replacement with mechanical valve (Primary Dx); Chronic anticoagulation 03/13/2025 Orders Only [facility] Health Information Management [address] [place] [address] Scanning, Provider 02/27/2025 Orders Only [facility] Health Information Management [address] [place] [address] Scanning, Provider 02/27/2025 Anticoagulation Visit [facility] Cardiology [address] [place] [address] [place] [phone] Indu Duarte RN History of mitral valve replacement with mechanical valve (Primary Dx); Chronic anticoagulation 02/17/2025 Orders Only [facility] Cardiology [address] [place] [address] [place] [phone] Godwin Feliciano MD Cardiac pacemaker in situ (Primary Dx); Complete heart block (HCC); PAF (paroxysmal atrial fibrillation) (HCC) 02/10/2025 7:15 AM CDT Ancillary Procedure [facility] Cardiology [address] [place] [address] [place] [phone] Cardiac pacemaker in situ; Complete heart block (HCC); PAF (paroxysmal atrial fibrillation) (HCC) 02/09/2025 Anticoagulation Visit [facility] Cardiology [address] [place] [address] [place] [phone] Indu Duarte RN History of mitral valve replacement with mechanical valve (Primary Dx); Chronic anticoagulation 01/26/2025 Anticoagulation Visit 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 Gender Identity Not on file Sexual Orientation Not on file Obstetrics History Last Filed Vital Signs Vital Sign Reading Time Taken Comments Blood Pressure 134/76 12/25/2024 12:58 PM CDT Pulse 75 12/25/2024 12:58 PM CDT Temperature 36.2 C (97.1 F) 04/07/2020 11:43 AM CDT Respiratory Rate 18 09/30/2024 1:43 PM LEGAL FILE CLERK Oxygen Saturation 97% 12/25/2024 12:58 PM CDT [...] Vaccine (1 of 2) 1983 Influenza Vaccine (#1) 2025 9, 05/12/2018, 04/21/2017, Additional history exists Breast Cancer Screening-Mammogram 01/07/2026 01/07/2025, 01/01/2024, 12/21/2022, Additional history exists Medical Devices Implanted Type Area Adoption Worker Device Identifier Shelf Expiration Date Model / Serial / Lot Pacemaker-05/13 Implanted:05/13 (Quantity not on file) Pacemaker Chest [employer] [facility] [place] 8 DRT / [id number] / Procedures Procedure Name Priority Date/Time Associated Diagnosis Comments SCAN - LABS 03/27/2025 PROTIME-INR Routine 03/27/2025 SCAN - LABS 03/13/2025 PROTIME-INR Routine 03/13/2025 SCAN - LABS 02/27/2025 PROTIME-INR Routine 02/27/2025 DEVICE CHECK - REMOTE Routine 02/17/2025 11:56 AM CDT Cardiac pacemaker in situ Complete heart block (HCC) PAF (paroxysmal atrial fibrillation) (HCC) PROTIME-INR Routine 02/09/2025 SCAN - LABS 01/23/2025 PROTIME-INR Routine 01/23/2025 SCREENING MAMMOGRAM BILATERAL W RALPH Schedule Routine, Read Routine (OP Routine) 01/07/2025 11:54 AM CDT Screening mammogram, encounter for from Last 3 Months or Most Recently Relevant to Health Maintenance Results * SCAN - LABS (03/27/2025) Provider Scanning Final Result * (ABNORMAL) Protime-INR (03/27/2025) INR 2.70(A) 0.90 - 1.10 EXTERNAL LAB Blood Result [facility] Historical Provider MD LAB BLOOD ORDERABLES Snow l Result Performing Organization Address [facility] Co de Phone Number EXTERNAL LAB * SCAN - LABS (03/13/2025) Provider Scanning Final Result * (ABNORMAL) Protime-INR (03/13/2025) INR 3.10(A) 0.90 - 1.10 EXTERNAL LAB Blood Result [facility] Provider MD LAB BLOOD ORDERABLES Snow l Result Performing Organization Address [facility] Co de Phone Number EXTERNAL LAB * SCAN - LABS (02/27/2025) Provider Scanning Final Result * (ABNORMAL) Protime-INR (02/27/2025) INR 3.80(A) 0.90 - 1.10 EXTERNAL LAB Blood Result [facility] Historical Provider MD LAB BLOOD ORDERABLES Snow l Result Performing Organization Address [facility] Co de Phone Number EXTERNAL LAB * DEVICE CHECK - REMOTE (02/17/2025 11:56 AM CDT) Anatomical Region Laterality Modality Other Narrative 03/03/2025 9:17 AM CDT [employer] Dual Pacemaker. Dx; CHB, AT/AF. DOI 05/31/[address] Hutchins. [employer] remote monitoring Q3 mo, office checks Q1 yr. 8 hours AT on 03/15/22. Routine DDD Pacemaker Remote. Transmission attached. Battery status: Ok, 35% remaining battery life to CLAUDIO. Stable lead impedances, pacing and sensing thresholds. Presenting rhythm: AP-LOSS PREVENTION REPRESENTATIVE. AP- 41%, LOSS PREVENTION REPRESENTATIVE- 99%. No AT/AF episodes recorded. No Ventricular high rate episodes detected. Medications: Coumadin, ASA 81 mg, Coreg. See scanned report. Office pacemaker follow up: 11/04/2025. [employer] remote f/u 05/19/2025. Cari Lowery RN [facility] Hilton Ribeiro MD [facility] PRO CEDURES Final Result * (ABNORMAL) Protime-INR (02/09/2025) INR 3.70(A) 0.90 - 1.10 EXTERNAL LAB Blood Historical Provider LAB BLOOD ORDERABLES Edit ed Result - Final EXTERNAL LAB * SCAN - LABS (01/23/2025) Provider Scanning Final Result * (ABNORMAL) Protime-INR (01/23/2025) INR 2.80(A) 0.90 - 1.10 EXTERNAL LAB Blood Historical Provider LAB BLOOD ORDERABLES Snow l Result EXTERNAL LAB * Screening Mammogram Bilateral W Ralph (01/07/2025 11:54 AM CDT) Anatomical Region Laterality Modality Breast Bilateral Mammography Narrative 01/08/2025 4:38 PM CDT Mammogram Technique: Bilateral Digital Breast Tomosynthesis, Bilateral C-view 2D Screening mammogram. Views obtained: bilateral craniocaudal and bilateral mediolateral oblique. Computer Aided Detection was performed. Mammogram Findings: The present examination has been compared to prior imaging studies performed at [facility] on 01/18/2022, 12/21/2022 and 01/01/2024. There [...] compared to prior imaging studies performed at [facility] on 01/18/2022, 12/21/2022 and 01/01/2024. There [...] Mammogram IMG MAMMO PROCEDURES Fi nal Result from Last 3 Months or Most Recently Relevant to Health Maintenance Insurance [facility] MEDICARE ADVANTAGE IDPA IDPA [facility] MEDICARE ADVANTAGE IDPA [facility] MEDICARE ADVANTAGE Care Teams Group Art Supervisor Relationship Specialty Start Date End Date Adriano Powers DO PCP - General Internal Medicine 01/17/21
--- OUTSIDE RECORDS SUMMARY | 2025-04-23 16:25 | XMS_ITS | Encounter Summary ---
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 Gender Identity Not on file Sexual Orientation Not on file documented as of this encounter Plan of Treatment Not on file documented as of this encounter Procedures Procedure Name Priority Date/Time Associated Diagnosis Comments SCAN - LABS 07/08/2024 documented in this encounter Results * SCAN - LABS (07/08/2024) us Provider Scanning Final Result documented in this encounter Visit Diagnoses Not on filedocumented in this encounter Care Teams Cath Lab Radiology Technician Relationship Specialty Start Date End Date Adriano Powers DO PCP - General Internal Medicine 01/17/21 documented as of this encounter
--- OUTSIDE RECORDS SUMMARY | 2025-04-23 16:25 | XMS_ITS | Encounter Summary ---
Author Organization [facility] Address [address] [facility] [address] [place] [address] Care Team Providers Care Construction Lineman Name Role Phone Kain Carty MD, Garcia Dc Primary Care Provider Adriano Powers DO Primary Care Provider +1- [phone] Encounter Details Date Type Department Care Team (Late st Contact Info) Description 12/07/2016 Orders Only [facility] ProviderJohnny MD [address] [place], [place] [id number] Social History Tobacco Use Types Packs/Day Years Used Date Smoking Tobacco: Every Day Alcohol Use Standard Drinks/Week Comments No 0 (1 standard drink = 0.6 oz pur e alcohol) Comments Unknown Sex and Gender Information Value Date Recorded Sex Assigned at Not on file 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
--- OUTSIDE RECORDS SUMMARY | 2025-04-23 16:25 | XMS_ITS | Encounter Summary ---
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
--- OUTSIDE RECORDS SUMMARY | 2025-04-23 16:25 | XMS_ITS | Encounter Summary ---
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
--- OUTSIDE RECORDS SUMMARY | 2025-04-23 16:25 | XMS_ITS | Encounter Summary ---
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
--- OUTSIDE RECORDS SUMMARY | 2025-04-23 16:25 | XMS_ITS | Encounter Summary ---
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
--- OUTSIDE RECORDS SUMMARY | 2025-04-23 16:25 | XMS_ITS | Encounter Summary ---
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
--- OUTSIDE RECORDS SUMMARY | 2025-04-23 16:25 | XMS_ITS | Encounter Summary ---
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
--- OUTSIDE RECORDS SUMMARY | 2025-04-23 16:25 | XMS_ITS | Encounter Summary ---
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 Gender Identity Not on file Sexual Orientation Not on file documented as of this encounter Plan of Treatment Not on file documented as of this encounter Procedures Procedure Name Priority Date/Time Associated Diagnosis Comments SCAN - LABS 06/21/2023 documented in this encounter Results * SCAN - LABS (06/21/2023) us Provider Scanning Final Result documented in this encounter Visit Diagnoses Not on filedocumented in this encounter Care Teams Cash Register Servicer Relationship Specialty Start Date End Date Adriano Powers DO PCP - General Internal Medicine 01/17/21 documented as of this encounter
--- OUTSIDE RECORDS SUMMARY | 2025-04-23 16:25 | XMS_ITS | Encounter Summary ---
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 Gender Identity Not on file Sexual Orientation Not on file documented as of this encounter Plan of Treatment Not on file documented as of this encounter Procedures Procedure Name Priority Date/Time Associated Diagnosis Comments SCAN - LABS 09/08/2024 documented in this encounter Results * SCAN - LABS (09/08/2024) us Provider Scanning Final Result documented in this encounter Visit Diagnoses Not on filedocumented in this encounter Care Teams Machine Package Sealer Relationship Specialty Start Date End Date Adriano Powers DO PCP - General Internal Medicine 01/17/21 documented as of this encounter
--- OUTSIDE RECORDS SUMMARY | 2025-04-23 16:25 | XMS_ITS | Encounter Summary ---
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 Gender Identity Not on file Sexual Orientation Not on file documented as of this encounter Plan of Treatment Not on file documented as of this encounter Procedures Procedure Name Priority Date/Time Associated Diagnosis Comments SCAN - LABS 10/31/2024 documented in this encounter Results * SCAN - LABS (10/31/2024) us Provider Scanning Final Result documented in this encounter Visit Diagnoses Not on filedocumented in this encounter Care Teams Bench Lay Out Technician Relationship Specialty Start Date End Date Adriano Powers DO PCP - General Internal Medicine 01/17/21 documented as of this encounter
--- OUTSIDE RECORDS SUMMARY | 2025-04-23 16:25 | XMS_ITS | Encounter Summary ---
Author Organization 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
[2025-04-23 19:34] LABS: Add Urine Microscopic? YES; Appearance Urine Turbid (Clear); Glucose Urine UA Negative (Negative); Leukocyte Esterase Ur 1+ LEU/UL (Negative); Need Manual Microscopic Reviewed; Nitrate Urine Negative (Negative); Non Pathogenic Casts 0-2; Specific Grav Ur 1.019 (1.001-1.035)
== END 2025-04-23 14:46 | disposition home or self-care (01) ==
LOC: ANHGOSHLAB 14:45
PROVIDERS: PCP Clinical Nurse Specialist; Visit Provider Clinical Nurse Specialist
DX: R31.9 Hematuria, unspecified (principal); M17.12 Unilateral primary osteoarthritis, left knee
CPT/HCPCS: 81001; 87086

== ENCOUNTER 2025-04-23 14:57 | Outpatient (CLI) | payer MEDICARE, MEDICAID, SELFPAY ==
--- NOTE | ~2025-04-23 | XR_ITS ---
EXAMINATION: XR knee LT 3V, 04/23/2025 14:52 CDT HISTORY: LEFT KNEE PAIN COMPARISON: No comparisons available. Findings: No acute fracture or malalignment. No significant degenerative changes. Soft tissues unremarkable. Impression: No acute fracture or malalignment. Reviewed, dictated and finalized at location A. Impression: No acute fracture or malalignment.
== END 2025-04-23 14:58 | disposition home or self-care (01) ==
LOC: ANHASCIMG 14:57
PROVIDERS: PCP Clinical Nurse Specialist; Visit Provider Clinical Nurse Specialist
DX: M25.562 Pain in left knee (principal)
CPT/HCPCS: 73562

== ENCOUNTER 2025-05-11 12:27 | Outpatient (CLI) | payer MEDICARE, MEDICAID, SELFPAY ==
--- OUTSIDE RECORDS SUMMARY | 2025-05-11 12:33 | XMS_ITS | Clinical Summary ---
Author Organization [facility] Address [address] [facility] [place] [address] Care Team Providers Care Japanese Interpreter Name Role Phone Unavailable Primary Care Provider Unavailabl e Source Comments [facility],non-owned Affiliates and Associated Physician Practices is amultiple site organization consisting of ambulatory clinics and hospital sitesin [place] and [place]. This disclosure is being madepursuant to the Care Everywhere program and may not contain all information available regarding this patient. Last updated 18.[facility] Social History Tobacco Use Types Packs/Day Years [...] 2014 ZOSTER VACCINE (1 of 2) 2014 DEPRESSION SCREENING 08/13/2024 COVID-19 VACCINE ( - 2023-2 5 season) 2025 INFLUENZA VACCINE (#1) 2025 Respiratory Syncytial Virus (RSV) Vaccine Pt: [...] complete this topic Insurance MANAGED MEDICARE ADV * Guarantor: Kailee Teixeira Account Type Relation to Patient Date of Phone Billing Address Personal/Family Self 1965 [facility] [address] [place] [address] MANAGED MEDICARE ADV MEDICAID - OUT OF STATE
--- OUTSIDE RECORDS SUMMARY | 2025-05-11 12:34 | XMS_ITS | Encounter Summary ---
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
--- OUTSIDE RECORDS SUMMARY | 2025-05-11 12:34 | XMS_ITS | Encounter Summary ---
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 Gender Identity Not on file Sexual Orientation Not on file documented as of this encounter Plan of Treatment Not on file documented as of this encounter Procedures Procedure Name Priority Date/Time Associated Diagnosis Comments SCAN - LABS 12/19/2021 documented in this encounter Results * SCAN - LABS (12/19/2021) us Provider Scanning Final Result documented in this encounter Visit Diagnoses Not on filedocumented in this encounter Care Teams Water Resources Technical Officer Relationship Specialty Start Date End Date Adriano Powers DO PCP - General Internal Medicine 01/17/21 documented as of this encounter
--- OUTSIDE RECORDS SUMMARY | 2025-05-11 12:34 | XMS_ITS | Encounter Summary ---
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
--- OUTSIDE RECORDS SUMMARY | 2025-05-11 12:34 | XMS_ITS | Encounter Summary ---
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
--- OUTSIDE RECORDS SUMMARY | 2025-05-11 12:34 | XMS_ITS | Encounter Summary ---
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
--- OUTSIDE RECORDS SUMMARY | 2025-05-11 12:34 | XMS_ITS | Encounter Summary ---
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
--- OUTSIDE RECORDS SUMMARY | 2025-05-11 12:34 | XMS_ITS | Encounter Summary ---
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
--- OUTSIDE RECORDS SUMMARY | 2025-05-11 12:34 | XMS_ITS | Encounter Summary ---
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
--- OUTSIDE RECORDS SUMMARY | 2025-05-11 12:34 | XMS_ITS | Encounter Summary ---
Author Organization [facility] Address [address] [facility] [address] [place] [address] Care Team Providers Care Certified Medical Coding Specialist Name Role Phone Kain Carty MD, Garcia Dc Primary Care Provider Adriano Powers DO Primary Care Provider +1- [phone] Encounter Details Date Type Department Care Team (Late st Contact Info) Description 12/07/2016 Orders Only [facility] ProviderJohnny MD [address] [place], [place] [id number] Social History Tobacco Use Types Packs/Day Years Used Date Smoking Tobacco: Every Day Alcohol Use Standard Drinks/Week Comments No 0 (1 standard drink = 0.6 oz pur e alcohol) Comments Unknown Sex and Gender Information Value Date Recorded Sex Assigned at Not on file 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
--- OUTSIDE RECORDS SUMMARY | 2025-05-11 12:34 | XMS_ITS | Encounter Summary ---
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
--- OUTSIDE RECORDS SUMMARY | 2025-05-11 12:34 | XMS_ITS | Encounter Summary ---
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
--- OUTSIDE RECORDS SUMMARY | 2025-05-11 12:34 | XMS_ITS | Encounter Summary ---
Author Organization [facility] Address [address] [place] [address] Care Team Providers Care Pattern Layout Worker Name Role Phone Adriano Powers DO Primary Care Provider Reason for Visit * Reason Onset Date Comments labs for appt 05/11/2025 Encounter Details Date Type Department Care Team (Late Contact Info) Description 05/11/2025 Telephone [facility] Oncology and Hematology - Andrei [address] [facility] [address] [place] [address] Carl Sweet MD [address] [facility] [address] [place] [address] labs for appt Social History Tobacco Use Types Packs/Day Years Used Date Smoking Tobacco: Former Cigarettes Q uit: 12/2022 Smokeless Tobacco: Never Alcohol Use Standard Drinks/Week Comments Never 0 (1 standard drink = 0.6 oz pur e alcohol) Comments Unknown Sex and Gender Information Value Date Recorded Sex Assigned at Not on file Legal Sex Female 3:44 PM CDT Gender Identity Not on file Sexual Orientation Not on file documented as of this encounter Miscellaneous Notes * Telephone Encounter - Beatriz Lopez - 05/11/2025 8:44 AM CDT LVM for patient regarding her appointment tomorrow. She has not got her labs done and we would needthose prior to her follow up appointment. documented in this encounter Plan of Treatment Upcoming Encounters Date Type Department Care Team (Late Contact Info) Description 05/12/2025 11:30 AM CDT Office Visit [facility] Oncology and Hematology - Andrei [address] [facility] [place] [address] [place] [address] Carl Sweet MD [address] [facility] [address] [place] [address] documented as of this encounter Visit Diagnoses Not on filedocumented in this encounter Care Teams Pattern Layout Worker Relationship Specialty Start Date End Date Adriano Powers DO [address] [facility] [address] [place] [address] PCP - General Internal Medicine 05/01/23 documented as of this encounter
--- OUTSIDE RECORDS SUMMARY | 2025-05-11 12:34 | XMS_ITS | Encounter Summary ---
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
--- OUTSIDE RECORDS SUMMARY | 2025-05-11 12:34 | XMS_ITS | Encounter Summary ---
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
--- OUTSIDE RECORDS SUMMARY | 2025-05-11 12:34 | XMS_ITS | Clinical Summary ---
Author Organization [facility] Address [address] [place] [address] Care Team Providers Care Facilities Operations Technician Name Role Phone Adriano Powers DO Primary Care Provider [phone] Allergies Active Allergy Reactions Criticality Noted Date Comments Lisinopril Nausea and Vomiting Low 04/01/2019 Causes TERRY, cramps, N/V Losartan Headache,GI Upset Low 03/31/2019 Penicillins Diarrhea,Nausea Only,Vomiting Low 06/09/2014 Oxycodone-Acetaminophen Unknown 08/21/2019 Pregabalin Nausea and Vomiting Low 11/15/2017 Prochlorperazine Other (see comment) Low Reaction: CRAMPING, Statins Unknown 08/21/2019 Terbinafine Unknown 10/29/2017 Tofacitinib Unknown 08/21/2019 Medications ferrous sulfate, 65 mg elemental, 325 (65 FE) MG tablet take 1 by Oral route every day 6 Active Abatacept 125 MG/ML Solution Auto-injector Orencia ClickJect 125 mg/mL subcutaneous auto-injector Active carvedilol 12.5 MG tablet Take 12.5 mg by mouth 2 (two) times daily. 9 Active folic acid 1 MG tablet TAKE 1 TABLET BY MOUTH ONCE DAILY 8 Active aspirin EC (ASPIRIN 81) 81 MG tablet 81 mg. 6 Active methotrexate 2.5 MG tablet 2.5 mg. 6 Active warfarin 1 MG tablet TAKE 1 TABLET BY MOUTH DIRECTED 9 Active warfarin 2 MG tablet TAKE 1 TABLET BY MOUTH ONCE DAILY (2MG MON, WED, FRI, THEN 3MG , URS, SAT, SUN) 0 Active levothyroxine 25 MCG tablet 25 mcg. 4 Active topiramate 100 MG tablet 100 mg. 7 Active Encounters Date Type Department Care Team Description 05/05/2025 11:19 AM CDT - 05/05/2025 11:59 PM CDT Hospital Encounter [facility] Ultrasound [address] [place] [address] Lisa Cuba, SENIOR MEDIA PLANNER Discharge Disposition: Home or Self Care (Routine Discharge) 05/05/2025 Travel from Last 3 Months Social History Tobacco Use Types Packs/Day Years Used Date Smoking Tobacco: Every Day Cigarettes Smokeless Tobacco: Never Alcohol Use Standard Drinks/Week Comments No 0 (1 standard drink = 0.6 oz pur e alcohol) AUDIT-C Answer Date Recorded Frequency of Alcohol Consumption Never 08/21/2019 Average Number of Drinks Not on file 020 Frequency of Binge Drinking Not on file 04/2020 Comments No Sex and Gender Information Value Date Recorded Sex Assigned at Not on file Legal Sex Female 7:59 PM CDT Gender Identity Not on file Sexual Orientation Not on file Last Filed Vital Signs Vital Sign Reading Time Taken Comments Blood Pressure 109/61 08/24/2019 6:41 PM NARCOTICS DETECTIVE Pulse 59 08/24/2019 6:41 PM NARCOTICS DETECTIVE Temperature 36.9 C (98.4 F) 08/24/2019 6:41 PM NARCOTICS DETECTIVE Respiratory Rate 16 08/24/2019 6:41 PM NARCOTICS DETECTIVE Oxygen Saturation 100% 08/24/2019 6:41 PM NARCOTICS DETECTIVE Inhaled Oxygen Concentration - - Weight 63.5 kg (140 lb) 08/24/2019 6:41 PM NARCOTICS DETECTIVE Height 170.2 cm (5' 7) 08/24/2019 6:41 PM NARCOTICS DETECTIVE Body Mass Index 21.93 08/24/2019 6:41 PM NARCOTICS DETECTIVE Plan of Treatment Health Maintenance Due Date Last Done Comments Cervical Cancer Screening Pap Smear (Age 30 to 64) Every 3 Years 1964 Colorectal Cancer Screening Colonoscopy (10 Years) 1964 Annual Physical 1967 Hepatitis C 1982 Cervical Cancer Screening Pap with HPV Testing (Age 30 to 64) Every 5 Years 1994 Cervical Cancer Screening with HPV 1994 Pneumococcal Vaccine: 50+ Years (2 of 2 - PCV) 07/02/2016 07/02/2015 Zoster Vaccines (2 of 2) 04/07/2025 02/10/2025 COVID-19 Vaccine (3 - season) 2025 12/31/2020, 12/12/2020 DTaP, Tdap and Td Vaccines (2 - Td or Tdap) 07/02/2025 07/02/2015 Mammogram Screening 01/07/2027 01/07/2025, 01/01/2024, 12/21/2022, Additional history exists RSV Immunization or 60+ Years (1 - 1-dose 75+ series) 2039 Meningococcal B Vaccine Aged Out No l onger eligible based on patient's age to complete this topic Meningococcal Vaccine Aged Out No satinder holden eligible based on patient's age to complete this topic RSV Immunizations Under 20 Months Aged Out No longer eligible based on patient's age to complete this topic Procedures Procedure Name Priority Date/Time Associated Diagnosis Comments US PELVIC NON OB COMP TA+TV Routine 05/05/2025 12:33 PM CDT Postmenopausal bleeding from Last 3 Months Results * US PELVIC NON OB COMP TA+TV (05/05/2025 12:33 PM CDT) Anatomical Region Laterality Modality Pelvis Ultrasound 05/05/2025 4:54 PM CDT Impressions 05/05/2025 4:59 PM CDT IMPRESSION: 1. Small fibroid in the anterior and right aspect of the mid myometrium. 2. Endometrial lining measures 2.9 mm. 3. Small slightly complex cyst in the right ovary. 4. Left ovary could not be visualized. 5. Prominent vessels in the left adnexa may be due to pelvic congestion. Ordered By: LISA CUBA Interpreted By: Elida Kim, 05/05/2025 4:54 PM Narrative 05/05/2025 4:59 PM CDT [facility] [address] [place] [address] EXAMINATION: US PELVIC NON OB COMP TA+TV EXAM DATE: 05/05/2025 11:57 AM COMPARISON STUDIES: None CLINICAL HISTORY: Postmenopausal bleeding . FINDINGS: Real time ultrasound examination performed by the welding specialist of the pelvis through transabdominal and transvaginal approach. Heterogeneous echotexture to the myometrium. Within the anterior and right aspect of the mid myometrium there is a well-defined hypoechoic probable fibroid. No abnormal color flow. Fibroid measures 8.6 x 4.6 x 6.5 mm. Uterus. Measures 5.3 x 2.7 x 3.8 cm. with an endometrial lining of 2.9 mm.. No endometrial mass. No abnormal color flow.. The right ovary measures 1.4 x 1.8 x 1.0 cm. . Contains small exophytic slightly complex cyst measuring 4.6 x 5.3 x 4.4 mm.. Normal color flow Doppler with spectral and waveform analysis to the right ovary.. The left ovary could not be visualized. Prominent vessels in the left adnexa with the largest measuring up to 8.3 mm in diameter. May be due to pelvic congestion. No free fluid noted in the cul-de-sac. Procedure Note Brian Kim MD - 05/05/2025 [facility] [address] [place] [address] EXAMINATION: US PELVIC NON OB COMP TA+TV EXAM DATE: 05/05/2025 11:57 AM COMPARISON STUDIES: None CLINICAL HISTORY: Postmenopausal bleeding . FINDINGS: Real time ultrasound examination performed by the welding specialist of thepelvis through transabdominal and transvaginal approach. Heterogeneous echotexture to the myometrium. Within the anterior andright aspect of the mid myometrium there is a well-defined hypoechoicprobable fibroid. No abnormal color flow. Fibroid measures 8.6 x 4.6 x 6.5mm. Uterus. Measures 5.3 x 2.7 x 3.8 cm. with an endometrial lining of 2.9 mm.. No endometrial mass. No abnormalcolor flow.. The right ovary measures 1.4 x 1.8 x 1.0 cm. . Contains small exophyticslightly complex cyst measuring 4.6 x 5.3 x 4.4 mm.. Normal color flowDoppler with spectral and waveform analysis to the right ovary.. The left ovary could not be visualized. Prominent vessels in the leftadnexa with the largest measuring up to 8.3 mm in diameter. May be due topelvic congestion. No free fluid noted in the cul-de-sac. IMPRESSION: 1. Small fibroid in the anterior and right aspect of the midmyometrium. 2. Endometrial lining measures 2.9 mm. 3. Small slightly complex cyst in the right ovary. 4. Left ovary could not be visualized. 5. Prominent vessels in the left adnexa may be due to pelviccongestion. Ordered By: LISA CUBA Interpreted By: Elida Kim, 05/05/2025 4:54 PM Lisa Cuba SENIOR MEDIA PLANNER ULTRASOUND Final Result from Last 3 Months Insurance MEDICAID Care Teams Facilities Operations Technician Relationship Specialty Start Date End Date Adriano Powers DO [address] [place] [address] PCP - General INTERNAL MEDICINE 10/19/21
--- OUTSIDE RECORDS SUMMARY | 2025-05-11 12:34 | XMS_ITS | Encounter Summary ---
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
--- OUTSIDE RECORDS SUMMARY | 2025-05-11 12:34 | XMS_ITS | Clinical Summary ---
Author Organization [facility] Address [address] [place] [address] Care Team Providers Care Veterinary Virologist Name Role Phone Adriano Powers Primary Care [...] Comments) Low 05/01/2023 Reaction: CRAMPING, Reaction: CRAMPING, [id number] Reductase Inhibitors Dizziness Low 09/25/2018 Terbinafine Unknown [...] Encounters Date Type Department Care Team Description 05/11/2025 Telephone [facility] Oncology and Hematology - Andrei [address] [place] [id number] Carl Sweet MD labs for appt 03/17/2025 External Device Data STL ABSTRACTION Provider, [...] Description 05/12/2025 11:30 AM CDT Office Visit [facility] Oncology and Hematology - Andrei [address] [place] [id number] Carl Sweet MD [address] [place] [address] Health Maintenance Due Date Last [...] 1-dose 75+ series) 2039 Insurance MEDICAID [place] DUAL COMPLETE PPO DSNP [facility] [id number] Care Teams Veterinary Virologist Relationship Specialty Start Date End Date Adriano Powers DO [address] [address] PCP - General Internal Medicine 05/01/23
--- OUTSIDE RECORDS SUMMARY | 2025-05-11 12:34 | XMS_ITS | Encounter Summary ---
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
--- OUTSIDE RECORDS SUMMARY | 2025-05-11 12:34 | XMS_ITS | Encounter Summary ---
Author Organization 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
--- OUTSIDE RECORDS SUMMARY | 2025-05-11 12:34 | XMS_ITS | Encounter Summary ---
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
--- OUTSIDE RECORDS SUMMARY | 2025-05-11 12:34 | XMS_ITS | Encounter Summary ---
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
--- OUTSIDE RECORDS SUMMARY | 2025-05-11 12:34 | XMS_ITS | Encounter Summary ---
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 Gender Identity Not on file Sexual Orientation Not on file documented as of this encounter Plan of Treatment Not on file documented as of this encounter Procedures Procedure Name Priority Date/Time Associated Diagnosis Comments SCAN - LABS 05/25/2023 documented in this encounter Results * SCAN - LABS (05/25/2023) us Provider Scanning Final Result documented in this encounter Visit Diagnoses Not on filedocumented in this encounter Care Teams Glue Specialty Supervisor Relationship Specialty Start Date End Date Adriano Powers DO PCP - General Internal Medicine 01/17/21 documented as of this encounter
--- OUTSIDE RECORDS SUMMARY | 2025-05-11 12:34 | XMS_ITS | Encounter Summary ---
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
--- OUTSIDE RECORDS SUMMARY | 2025-05-11 12:34 | XMS_ITS | Encounter Summary ---
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
--- OUTSIDE RECORDS SUMMARY | 2025-05-11 12:34 | XMS_ITS | Clinical Summary ---
Author Organization [facility] Address [facility] [place] [address] Care Team Providers Care Drying Frame Operator Name Role Phone Adriano Powers DO Primary Care Provider +1- [phone] Allergies Active Allergy Reactions Criticality Noted Date Comments Amitriptyline Dizziness,Nausea only Low 04/12/2020 Fenofibrate Rash Medium 09/21/2015 Lisinopril Nausea & Vomiting,Nausea And Vomiting Low 04/01/2019 Causes TERRY, cramps, N/V Causes TERRY, cramps, N/V Losartan Stomach upset,Headache Low 03/31/2019 Oxycodone-Acetaminophen Unknown Low 09/14/2015 Penicillins Nausea only,Vomiting,Diarr hea Low Pregabalin Nausea & Vomiting,Nausea And Vomiting Low 11/15/2017 Prochlorperazine Other (See comments) Low Reaction: CRAMPING, Mhvqbcq-Ikt-Gpt Reductase Inhibitors Dizziness Low 09/25/2018 Terbinafine Unknown [...] t 05/11/2021 Coronary artery disease invo lving [place] coronary artery of [place] heart without angina pectoris 02/21/2021 Statin myopathy [...] Encounters Date Type Department Care Team Description 04/24/[address] [facility] [place] [address] [place] [address] Scanning, Provider 04/24/2025 Anticoagulation Visit [facility] Medical [facility] [address] [place] [address] Indu Duarte RN History of mitral valve replacement with mechanical valve (Primary Dx); Chronic anticoagulation 03/30/2025 Anticoagulation Visit [facility] Cardiology [address] [place] [address] Indu Duarte RN History of mitral valve replacement with mechanical valve (Primary Dx); Chronic anticoagulation 03/27/[address] [facility] Information Management [address] [place] [address] Scanning, Provider 03/18/2025 Telephone [facility] Cardiology [address] [place] [address] [place] [phone] Godwin Feliciano MD 2025 Anticoagulation Visit [place] [address] [place] [phone] Indu Duarte RN History of mitral valve replacement with mechanical valve (Primary Dx); Chronic anticoagulation 03/13/[address] [facility] Information Management [address] [place] [address] Scanning, Provider 02/27/[address] [facility] Information Management [address] [place] [address] Scanning, Provider 02/27/2025 Anticoagulation Visit [place] [address] [place] [phone] Indu Duarte RN History of mitral valve replacement with mechanical valve (Primary Dx); Chronic anticoagulation 02/17/2025 Orders Only [facility] Cardiology [address] [place] [address] [place] [phone] Godwin Feliciano MD Cardiac pacemaker in situ (Primary Dx); Complete heart block (HCC); PAF (paroxysmal atrial fibrillation) (HCC) 02/10/2025 7:15 AM CDT Ancillary Procedure [facility] Cardiology [address] [place] [address] [place] [phone] Cardiac pacemaker in situ; Complete heart block (HCC); PAF (paroxysmal atrial fibrillation) (HCC) 02/09/2025 Anticoagulation Visit [facility] Cardiology [address] [place] [address] [place] [phone] Indu Duarte RN History of mitral valve [...] on file 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 Gender Identity Not on file Sexual Orientation Not on file Obstetrics History Last Filed Vital Signs Vital Sign Reading Time Taken Comments Blood Pressure 134/76 12/25/2024 12:58 PM CDT Pulse 75 12/25/2024 12:58 PM CDT Temperature 36.2 C (97.1 F) 04/07/2020 11:43 AM CDT Respiratory Rate 18 09/30/2024 1:43 PM SINGLE PASS SOIL STABILIZER OPERATOR Oxygen Saturation 97% 12/25/2024 12:58 PM CDT [...] history exists Medical Devices Implanted Type Area Radiation Officer Device Identifier Shelf Expiration Date Model / Serial / Lot Pacemaker-05/13 Implanted:05/13 (Quantity not on file) Pacemaker Chest [employer] [facility] 8 DRT / [id number] / Procedures Procedure Name Priority Date/Time Associated Diagnosis Comments SCAN - LABS 04/24/2025 PROTIME-INR Routine 04/24/2025 SCAN - LABS 03/27/2025 PROTIME-INR Routine 03/27/2025 SCAN - LABS 03/13/2025 PROTIME-INR Routine 03/13/2025 SCAN - LABS 02/27/2025 PROTIME-INR Routine 02/27/2025 DEVICE CHECK - REMOTE Routine 02/17/2025 11:56 AM CDT Cardiac pacemaker in situ Complete heart block (HCC) PAF (paroxysmal atrial fibrillation) (HCC) PROTIME-INR Routine 02/09/2025 SCREENING MAMMOGRAM BILATERAL W RALPH Schedule Routine, Read Routine (OP Routine) 01/07/2025 11:54 AM CDT Screening mammogram, encounter for from Last 3 Months or Most Recently Relevant to Health Maintenance Results * SCAN - LABS (04/24/2025) us Provider Scanning Final Result * (ABNORMAL) Protime-INR (04/24/2025) INR 2.70(A) 0.90 - 1.10 EXTERNAL LAB Blood Result [facility] Historical Provider MD LAB BLOOD ORDERABLES Snow l Result Performing Organization Address [facility] Co de Phone Number EXTERNAL LAB * SCAN - LABS (03/27/2025) us Provider Scanning Final Result * (ABNORMAL) Protime-INR (03/27/2025) INR 2.70(A) 0.90 - 1.10 EXTERNAL LAB Blood Result [facility] Historical Provider MD LAB BLOOD ORDERABLES Snow l Result Performing Organization Address [facility] Co de Phone Number EXTERNAL LAB * SCAN - LABS (03/13/2025) us Provider Scanning Final Result * (ABNORMAL) Protime-INR (03/13/2025) INR 3.10(A) 0.90 - 1.10 EXTERNAL LAB Blood Result [facility] Historical Provider MD LAB BLOOD ORDERABLES Snow l Result Performing Organization Address [facility] Co de Phone Number EXTERNAL LAB * SCAN - LABS (02/27/2025) us Provider Scanning Final Result * (ABNORMAL) Protime-INR (02/27/2025) INR 3.80(A) 0.90 - 1.10 EXTERNAL LAB Blood Result [facility] Historical Provider LAB BLOOD ORDERABLES Snow l Result Performing Organization Address [facility]/ZIP Co de Phone Number EXTERNAL LAB * [...] impedances, pacing and sensing thresholds. Presenting rhythm: AP-GLOBAL SUPPLY CHAIN DIRECTOR. AP- 41%, GLOBAL SUPPLY CHAIN DIRECTOR- 99%. No AT/AF episodes recorded. No Ventricular high rate episodes detected. Medications: Coumadin, ASA 81 mg, Coreg. See scanned report. Office pacemaker follow up: 11/04/2025. [employer] remote f/u 05/19/2025. Cari Lowery, CHAPIS [facility] Hilton Ribeiro MD [facility] C[facility] PRO CEDURES Final Result * (ABNORMAL) Protime-INR (02/09/2025) INR 3.70(A) 0.90 - 1.10 EXTERNAL LAB Blood Historical Provider LAB BLOOD ORDERABLES Edit ed Result - Final Performing Organization Address City/[facility]/ZIP Co de Phone Number EXTERNAL LAB * Screening Mammogram Bilateral W Ralph (01/07/2025 11:54 AM CDT) Anatomical Region Laterality Modality Breast Bilateral Mammography Narrative 01/08/2025 4:38 PM CDT Mammogram Technique: Bilateral Digital Breast Tomosynthesis, Bilateral C-view 2D Screening mammogram. Views obtained: bilateral craniocaudal and bilateral mediolateral oblique. Computer Aided Detection was performed. Mammogram Findings: The present examination has been compared to prior imaging studies performed at [facility] on 01/18/2022, 12/21/2022 and 01/01/2024. There [...] compared to prior imaging studies performed at [facility] on 01/18/2022, 12/21/2022 and 01/01/2024. There [...] Most Recently Relevant to Health Maintenance Insurance [facility] Address: [address] [address] [place] [address] IDPA IDPA [facility] MEDIC[facility] Address: [address] [address] [place] [address] IDPA [facility] MED[facility] Address: [address] [address] [place] [address] Care Teams Drying Frame Operator Relationship Specialty Start Date End Date Adriano Powers DO PCP - General Internal Medicine 01/17/21
--- OUTSIDE RECORDS SUMMARY | 2025-05-11 12:34 | XMS_ITS | Encounter Summary ---
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
--- OUTSIDE RECORDS SUMMARY | 2025-05-11 12:34 | XMS_ITS | Encounter Summary ---
Author Organization [facility] Healthcare Address [address] [place] [address] Care Team Providers Care Explosion Welder Name Role Phone Adriano Powers DO Primary Care Provider +1- [phone] Encounter Details Date Type Department Care Team (Late st Contact Info) Description 07/03/[address] 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
--- OUTSIDE RECORDS SUMMARY | 2025-05-11 12:34 | XMS_ITS | Encounter Summary ---
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
--- OUTSIDE RECORDS SUMMARY | 2025-05-11 12:34 | XMS_ITS | Encounter Summary ---
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
--- OUTSIDE RECORDS SUMMARY | 2025-05-11 12:34 | XMS_ITS | Encounter Summary ---
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
--- OUTSIDE RECORDS SUMMARY | 2025-05-11 12:34 | XMS_ITS | Encounter Summary ---
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
--- OUTSIDE RECORDS SUMMARY | 2025-05-11 12:34 | XMS_ITS | Encounter Summary ---
Author Organization [facility] Healthcare Address [address] [place] [address] Care Team Providers Care Manager Learning Name Role Phone Adriano Powers DO Primary Care Provider +1- [phone] Encounter Details Date Type Department Care Team (Late st Contact Info) Description 06/07/2022 Orders Only 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 Gender Identity Not on file Sexual Orientation Not on file documented as of this encounter Plan of Treatment Not on file documented as of this encounter Procedures Procedure Name Priority Date/Time Associated Diagnosis Comments SCAN - LABS 06/07/2022 9:28 PM CDT documented in this encounter Results * SCAN - LABS (06/07/2022 9:28 PM CDT) us Provider Scanning Final Result documented in this encounter Visit Diagnoses Not on filedocumented in this encounter Care Teams Manager Learning Relationship Specialty Start Date End Date Adriano Powers DO PCP - General Internal Medicine 01/17/21 documented as of this encounter
--- OUTSIDE RECORDS SUMMARY | 2025-05-11 12:34 | XMS_ITS | Encounter Summary ---
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
--- OUTSIDE RECORDS SUMMARY | 2025-05-11 12:34 | XMS_ITS | Encounter Summary ---
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
--- OUTSIDE RECORDS SUMMARY | 2025-05-11 12:34 | XMS_ITS | Encounter Summary ---
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 Gender Identity Not on file Sexual Orientation Not on file documented as of this encounter Plan of Treatment Not on file documented as of this encounter Procedures Procedure Name Priority Date/Time Associated Diagnosis Comments SCAN - LABS 02/22/2023 documented in this encounter Results * SCAN - LABS (02/22/2023) us Provider Scanning Final Result documented in this encounter Visit Diagnoses Not on filedocumented in this encounter Care Teams Manager Of Community Relations Relationship Specialty Start Date End Date Adriano Powers DO PCP - General Internal Medicine 01/17/21 documented as of this encounter
[2025-05-11 14:21] LABS: Hematocrit 40.5 % (37.0-47.0); Hemoglobin 13.5 g/dL (12.0-15.0); Immature Granulocyte Percent A 0.3 % (0-0.5); Lymphocytes Absolute Auto 1.18 K/mm3 (0.9-3.2); Mean Corpuscular HGB Conc 33.3 g/dl (32-36); Mean Corpuscular Hemoglobin 32.1 pg (26-34); Mean Corpuscular Volume 96.2 fl (80-100); Nucleated Red Blood Cells Absolute Auto 0.000 K/mm3 (0.0-0.012); Nucleated Red Blood Cells Perc 0.0 % (0.0-0.2); Platelet Count Result 147 k/mm3 (150-375); Red Blood Count 4.21 M/mm3 (4.2-5.4); White Blood Count 3.0 K/mm3 (4.5-10.0)
[2025-05-11 14:46] LABS: Anion Gap 7 mmol/L (4-12); Blood Urea Nitrogen 15 mg/dL (7-17); Calcium 9.1 mg/dL (8.4-10.2); Carbon Dioxide 23 mmol/L (22-30); Chloride 109 mmol/L (98-107); Estimated Glomerular Filt Rate 59; Glucose 114 mg/dL (65-110); Potassium 4.2 mmol/L (3.4-5.0); Sodium 139 mmol/L (137-145)
[2025-05-11 15:57] LABS: Vitamin B12 932.0 pg/mL (239-931)
== END 2025-05-11 12:28 | disposition home or self-care (01) ==
LOC: ANHLAB 12:31
PROVIDERS: PCP Clinical Nurse Specialist; Visit Provider Internal Medicine Hematology & Oncology
DX: D64.9 Anemia, unspecified (principal)
CPT/HCPCS: 36415; 80048; 82607; 82746; 85025

== ENCOUNTER 2025-06-24 11:44 | Outpatient (CLI) | payer MEDICARE, MEDICAID, SELFPAY ==
[2025-06-24 13:05] LABS: Alanine Aminotransferase 35 U/L (6-35); Albumin Level 3.9 g/dL (3.5-5.1); Alkaline Phosphatase 137 U/L (38-126); Anion Gap 6 mmol/L (4-12); Aspartate Amino Transferase 38 U/L (14-36); Bilirubin,Total 0.6 mg/dL (0.2-1.3); Blood Urea Nitrogen 16 mg/dL (7-17); CRP 0.8 mg/dL (<1.0); Calcium 9.2 mg/dL (8.4-10.2); Carbon Dioxide 24 mmol/L (22-30); Chloride 109 mmol/L (98-107); Estimated Glomerular Filt Rate 52; Glucose 113 mg/dL (65-110); Potassium 4.1 mmol/L (3.4-5.0); Sodium 139 mmol/L (137-145); Total Protein 7.4 g/dL (6.3-8.2)
--- OUTSIDE RECORDS SUMMARY | 2025-06-24 13:15 | XMS_ITS | Encounter Summary ---
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 Gender Identity Not on file Sexual Orientation Not on file documented as of this encounter Functional Status * BP Location Answer Date of Assessment Author Right arm 12/25/2024 12:58 PM Gayla Obrien MA * BP Location Answer Date of Assessment Author Right arm 12/25/2024 12:58 PM Gayla Obrien MA documented as of this encounter Plan of Treatment Not on file documented as of this encounter Procedures Procedure Name Priority Date/Time Associated Diagnosis Comments SCAN - LABS 12/25/2024 documented in this encounter Results * SCAN - LABS (12/25/2024) us Provider Scanning Final Result documented in this encounter Visit Diagnoses Not on filedocumented in this encounter Care Teams Project Intern Relationship Specialty Start Date End Date Adriano Powers DO PCP - General Internal Medicine 01/17/21 documented as of this encounter
--- OUTSIDE RECORDS SUMMARY | 2025-06-24 13:15 | XMS_ITS | Encounter Summary ---
Author Organization [facility] Address [address] [place] [address] Care Team Providers Care Stamping Die Maker Name Role Phone Kain Carty MD, Garcia Dc Primary Care Provider Adriano Powers DO Primary Care Provider +1- [phone] Encounter Details Date Type Department Care Team (Late st Contact Info) Description 12/07/2016 Orders Only [facility] ProviderJohnny MD [address] [place], [place] [address] Social History Tobacco Use Types Packs/Day Years Used Date Smoking Tobacco: Every Day Alcohol Use Standard Drinks/Week Comments No 0 (1 standard drink = 0.6 oz pur e alcohol) Comments Unknown Sex and Gender Information Value Date Recorded Sex Assigned at Not on file 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
--- OUTSIDE RECORDS SUMMARY | 2025-06-24 13:15 | XMS_ITS | Encounter Summary ---
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
--- OUTSIDE RECORDS SUMMARY | 2025-06-24 13:15 | XMS_ITS | Encounter Summary ---
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
--- OUTSIDE RECORDS SUMMARY | 2025-06-24 13:15 | XMS_ITS | Encounter Summary ---
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
--- OUTSIDE RECORDS SUMMARY | 2025-06-24 13:15 | XMS_ITS | Encounter Summary ---
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
--- OUTSIDE RECORDS SUMMARY | 2025-06-24 13:15 | XMS_ITS | Encounter Summary ---
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
--- OUTSIDE RECORDS SUMMARY | 2025-06-24 13:15 | XMS_ITS | Encounter Summary ---
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
--- OUTSIDE RECORDS SUMMARY | 2025-06-24 13:15 | XMS_ITS | Clinical Summary ---
[facility] Address [address] [place] [address] Care Team Providers Care Public Address Servicer Name Role Phone Adriano Powers Primary Care [...] Comments) Low 05/01/2023 Reaction: CRAMPING, Reaction: CRAMPING, Pephoik-Sgl-Fgo Reductase Inhibitors Dizziness Low 09/25/2018 Terbinafine Unknown [...] Take 81 mg by mouth daily. Active ezetimibe (ZETIA) 10 mg tablet Take 1 Tablet by mouth daily. Active Active Problems No known active problems Encounters Date Type Department Care Team Description 06/10/2025 External Device Data STL ABSTRACTION Provider, Abstract 06/09/2025 External Device Data STL ABSTRACTION Provider, Abstract 05/13/2025 Orders Only [facility] Oncology and Hematology [facility] [address] [place] [address] Carl Sweet MD 05/12/2025 11:30 AM CDT Office Visit [facility] Oncology and [facility] [address] [place] [address] Carl Sweet MD Chronic anemia (Primary Dx) 05/11/2025 Telephone [facility] Oncology and [facility] [address] [place] [address] Carl Sweet MD labs for appt from Last 3 Months Family History Medical [...] Sign Reading Time Taken Comments Blood Pressure 139/83 05/12/2025 10:58 AM CDT Pulse 69 05/12/2025 10:58 AM CDT Temperature 36.1 C (96.9 F) 05/12/2025 10:58 AM CDT Respiratory Rate 16 05/12/2025 10:58 AM CDT Oxygen Saturation 98% 05/12/2025 10:58 AM CDT Inhaled Oxygen Concentration - - Weight 84.6 kg (186 lb 9.6 oz) 05/12/2025 10:58 AM CDT Height - - Body Mass Index - - Plan of Treatment Upcoming Encounters Date Type Department Care Team (Late st Contact Info) Description 11/09/2025 11:30 AM CDT Office Visit [facility] Oncology and Hematology [facility] [address] [facility] [address] [place] [address] Carl Sweet MD [address] [facility] [address] [place] [address] Health Maintenance Due Date Last [...] (1 of 2) 2014 INFLUENZA VACCINE (#1) 2025 9, 05/12/2018, 04/21/2017, Additional history exists BREAST CANCER SCREENING 01/07/2026 01/08/20 25, 01/07/2025, 01/01/2024, Additional history exists RSV VACCINE (60+ or ) (1 - 1-dose 75+ series) 2039 Procedures Procedure Name Priority Date/Time Associated Diagnosis Comments BASIC METABOLIC PANEL Routine 05/11/2025 4:22 PM CDT CBC WITH AUTODIFFERENTIAL Routine 2024 12:38 PM CDT from Last 3 Months Results * BASIC METABOLIC PANEL (05/11/2025 4:22 PM CDT) Blood us Carl Sweet MD CHEMISTRY ORDERABLES Final Resu lt * CBC WITH AUTODIFFERENTIAL (05/11/2025 12:38 PM CDT) Blood us Carl Sweet MD HEMATOLOGY ORDERABLES Final Res ult from Last 3 Months Insurance [place] [address] [place] [address] DUAL COMPLETE PPO DSNP [facility] [id number] Care Teams Public Address Servicer Relationship Specialty Start Date End Date Adrinao Powers DO [address] [facility] [address] [place] [phone] PCP - General Internal Medicine 05/01/23
--- OUTSIDE RECORDS SUMMARY | 2025-06-24 13:15 | XMS_ITS | Encounter Summary ---
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
--- OUTSIDE RECORDS SUMMARY | 2025-06-24 13:15 | XMS_ITS | Encounter Summary ---
Author Organization [facility] Healthcare Address [address] [place] [address] Care Team Providers Care Engineering Group Manager Name Role Phone Adriano Powers DO Primary Care Provider +1- [phone] Encounter Details Date Type Department Care Team (Late st Contact Info) Description 10/17/[address] 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
--- OUTSIDE RECORDS SUMMARY | 2025-06-24 13:15 | XMS_ITS | Encounter Summary ---
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
--- OUTSIDE RECORDS SUMMARY | 2025-06-24 13:15 | XMS_ITS | Encounter Summary ---
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
--- OUTSIDE RECORDS SUMMARY | 2025-06-24 13:15 | XMS_ITS | Encounter Summary ---
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
--- OUTSIDE RECORDS SUMMARY | 2025-06-24 13:15 | XMS_ITS | Encounter Summary ---
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
--- OUTSIDE RECORDS SUMMARY | 2025-06-24 13:15 | XMS_ITS | Encounter Summary ---
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
--- OUTSIDE RECORDS SUMMARY | 2025-06-24 13:15 | XMS_ITS | Encounter Summary ---
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 Gender Identity Not on file Sexual Orientation Not on file documented as of this encounter Plan of Treatment Not on file documented as of this encounter Procedures Procedure Name Priority Date/Time Associated Diagnosis Comments SCAN - LABS 07/24/2022 9:29 PM MINK FARMER documented in this encounter Results * SCAN - LABS (07/24/2022 9:29 PM MINK FARMER) us Provider Scanning Final Result documented in this encounter Visit Diagnoses Not on filedocumented in this encounter Care Teams Vegetable Preparer Relationship Specialty Start Date End Date Adriano Powers, DO PCP - General Internal Medicine 01/17/21 documented as of this encounter
--- OUTSIDE RECORDS SUMMARY | 2025-06-24 13:15 | XMS_ITS | Encounter Summary ---
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
--- OUTSIDE RECORDS SUMMARY | 2025-06-24 13:15 | XMS_ITS | Clinical Summary ---
Author Organization [facility] Address [address] [facility] [place] [address] Care Team Providers Care Certified Dietary Manager Name Role Phone Unavailable Primary Care Provider Unavailabl e Source Comments [facility],non-owned Affiliates and Associated Physician Practices is amultiple site organization consisting of ambulatory clinics and hospital sitesin [place], [place], [place] and [place]. This disclosure is being madepursuant to the Care Everywhere program and may not contain all information available regarding this patient. Last updated 18.[facility] Social History Tobacco Use Types Packs/Day Years [...]
--- OUTSIDE RECORDS SUMMARY | 2025-06-24 13:15 | XMS_ITS | Encounter Summary ---
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
--- OUTSIDE RECORDS SUMMARY | 2025-06-24 13:15 | XMS_ITS | Clinical Summary ---
Author Organization [facility] Address [facility] [place] [address] Care Team Providers Care Soaking Pit Operator Name Role Phone Adriano Powers DO Primary Care Provider +1- [phone] Allergies Active Allergy Reactions Criticality Noted Date Comments Amitriptyline Dizziness,Nausea only Low 04/12/2020 Fenofibrate Rash Medium 09/21/2015 Lisinopril Nausea & Vomiting,Nausea And Vomiting Low 04/01/2019 Causes TERRY, cramps, N/V Causes TERRY, cramps, N/V Losartan Stomach upset,Headache Low 03/31/2019 Oxycodone-Acetaminophen Unknown Low 09/14/2015 Penicillins Nausea only,Vomiting,Diarr hea Low Pregabalin Nausea & Vomiting,Nausea And Vomiting Low 11/15/2017 Prochlorperazine Other (See comments) Low Reaction: CRAMPING, Oyxdzdl-Iwj-Ioo Reductase Inhibitors Dizziness Low 09/25/2018 Terbinafine Unknown [...] (1,000 mcg total) by mouth daily Active warfarin (COUMADIN) 2 mg tablet Take 1 tablet by mouth once daily 30 tablet 06/08/20 25 Active carvediloL (COREG) 6.25 mg tablet TAKE 1 TABLET BY MOUTH TWICE DAILY WITH MEALS 180 tablet 06/10/20 25 Active carvediloL (COREG) 6.25 mg tablet TAKE 1 TABLET BY MOUTH TWICE DAILY WITH MEALS 180 tablet 03/16/20 25 025 Discontinued warfarin (COUMADIN) 2 mg tablet Take 1 tablet by mouth once daily 30 tablet 05/12/20 25 025 Discontinued Active Problems Problem Noted Date Diagnosed Date Paroxysmal SVT (supraventricular tachycardia) Atrial tachycardia 05/12/2022 Mixed hyperlipidemia 09/01/2021 Abnormal findings on diagnostic imaging of breas t 05/11/2021 Coronary artery disease invo lving [place] coronary artery of [place] heart without angina pectoris 02/21/2021 Statin myopathy [...] Encounters Date Type Department Care Team Description 06/08/[address] [facility] Cardiology [address] [place] [address] Alla Flowers RN History of mitral valve replacement with mechanical valve (Primary Dx); Chronic anticoagulation 05/22/[address] [facility] Cardiology [address] [place] [address] Gayla Tejeda RN History of mitral valve replacement with mechanical valve (Primary Dx); Chronic anticoagulation 05/19/2025 8:30 AM CDT Ancillary Procedure [facility] Cardiology [address] [facility] [address], [place] [address] Cardiac pacemaker in situ; Complete heart block (HCC); PAF (paroxysmal atrial fibrillation) 04/24/2025 Orders Only [facility] Health Information Management [address] [place] [address] Scanning, Provider 04/24/2025 Anticoagulation Visit [facility] Cardiology [address] [place] [address] Indu Duarte RN History of mitral valve replacement with mechanical valve (Primary Dx); Chronic anticoagulation 03/30/2025 Anticoagulation Visit [facility] Cardiology [address] [place] [address] Indu Duarte RN History of mitral valve replacement with mechanical valve (Primary Dx); Chronic anticoagulation 03/27/2025 Orders Only [facility] Health Information Management [address] [place] [address] Scanning, Provider from Last 3 Months Immunizations [...] on file 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 Gender Identity Not on file Sexual Orientation Not on file Last Filed Vital Signs Vital Sign Reading Time Taken Comments Blood Pressure 134/76 12/25/2024 12:58 PM CDT Pulse 75 12/25/2024 12:58 PM CDT Temperature 36.2 C (97.1 F) 04/07/2020 11:43 AM CDT Respiratory Rate 18 09/30/2024 1:43 PM TELETYPE MECHANIC Oxygen Saturation 97% 12/25/2024 12:58 PM CDT [...] Depression Screening 1964 Hepatitis C Screening 1964 Hepatitis B Screening 1982 Regular Well Visit/Exam 18-64 1982 Pneumococcal vaccine <65 (2 of 2 - PCV) 07/02/2016 07/02/2015 Zoster Vaccine (2 of 2) 04/07/2025 02/10/2025 DTaP/Tdap/Td Vaccine (2 - Td or Tdap) 07/02/2025 07/02/2015 Breast Cancer Screening-Mammogram 01/07/2026 01/07/2025, 01/01/2024, 12/21/2022, Additional history exists Influenza Vaccine Completed 04/17/2025, , 04/22/2019, Additional history exists Medical Devices Implanted Type Area Anchor Operator Device Identifier Shelf Expiration Date Model / Serial / Lot Pacemaker-05/13 Implanted:05/13 (Quantity not on file) Pacemaker Chest [employer] CHB ELUNA 8 T / [id number] / Procedures Procedure Name Priority Date/Time Associated Diagnosis Comments PROTIME-INR Routine 06/08/2025 PROTIME-INR Routine 05/22/2025 DEVICE CHECK - REMOTE Routine 05/20/2025 10:38 AM CDT Cardiac pacemaker in situ Complete heart block (HCC) PAF (paroxysmal atrial fibrillation) SCAN - LABS 04/24/2025 PROTIME-INR Routine 04/24/2025 SCAN - LABS 03/27/2025 PROTIME-INR Routine 03/27/2025 SCREENING MAMMOGRAM BILATERAL W RALPH Schedule Routine, Read Routine (OP Routine) 01/07/2025 11:54 AM CDT Screening mammogram, encounter for from Last 3 Months or Most Recently Relevant to Health Maintenance Results * (ABNORMAL) Protime-INR (06/08/2025) INR 3.20(A) 0.90 - 1.10 EXTERNAL LAB Blood 06/08/2025 Historical Provider MD LAB BLOOD ORDERABLES Snow l Result EXTERNAL LAB * (ABNORMAL) Protime-INR (05/22/2025) INR 2.80(A) 0.90 - 1.10 EXTERNAL LAB Blood Historical Provider MD LAB BLOOD ORDERABLES Snow l Result EXTERNAL LAB * DEVICE CHECK - REMOTE (05/20/2025 10:38 AM CDT) Anatomical Region Laterality Modality Other Narrative 06/03/2025 12:45 PM CDT Biotronik Dual Pacemaker. Dx; CHB. DOI 05/31/[address] Hutchins. Biotronik remote monitoring Q3 mo, office checks Q1 yr. Routine DDD Pacemaker Remote. Transmission attached. Battery status: OK , 30% remaining battery life to CLAUDIO. Stable lead impedances, pacing and sensing thresholds. Presenting rhythm: AP/KNOTTER AP-40%, KNOTTER-99% No AT/AF episodes noted.. No Ventricular high rate episodes detected. Medications: ASA 81 mg, carvedilol 6.25 mg, warfarin See scanned report. Office pacemaker follow up: 11/04/25 Biotronik remote f/u 08/18/25. Jose Hughes, RN [facility] Hilton Ribeiro MD CV CARDIAC SERVICES PRO CEDURES Final Result * SCAN - LABS (04/24/2025) us Provider Scanning Final Result * (ABNORMAL) Protime-INR (04/24/2025) INR 2.70(A) 0.90 - 1.10 EXTERNAL LAB Blood Historical Provider LAB BLOOD ORDERABLES Snow l Result EXTERNAL LAB * SCAN - LABS (03/27/2025) us Provider Scanning Final Result * (ABNORMAL) Protime-INR (03/27/2025) INR 2.70(A) 0.90 - 1.10 EXTERNAL LAB Blood Historical Provider LAB BLOOD ORDERABLES Snow l Result Performing Organization Address City/[facility]/ZIP Co de Phone Number EXTERNAL LAB * [...] compared to prior imaging studies performed at [facility] on 01/18/2022, 12/21/2022 and 01/01/2024. There are [...] compared to prior imaging studies performed at [facility] on 01/18/2022, 12/21/2022 and 01/01/2024. There are [...] Most Recently Relevant to Health Maintenance Insurance [facility]IC[facility] ADVANTAGE [facility] Address: [address] [address] [place] [address] IDPA IDPA [facility] MEDIC[facility] ADVANTAGE [facility] Address: [address] [address] [place] [address] IDPA [facility] MEDIC[facility] ADVANTAGE [facility] Address: [address] [address] [place] [address] Care Teams Soaking Pit Operator Relationship Specialty Start Date End Date Adriano Powers DO PCP - General Internal Medicine 01/17/21
== END 2025-06-24 11:45 | disposition home or self-care (01) ==
PROVIDERS: PCP Clinical Nurse Specialist; Visit Provider Emergency Medicine Emergency Medical Services
DX: M05.9 Rheumatoid arthritis with rheumatoid factor, unspecified (principal); Z79.899 Other long term (current) drug therapy
CPT/HCPCS: 36415; 80053; 85652; 86140

== ENCOUNTER 2025-06-29 12:47 | Outpatient (CLI) | payer MEDICARE, MEDICAID, SELFPAY ==
[2025-06-29 13:15] LABS: Hematocrit 41.7 % (37.0-47.0); Hemoglobin 14.0 g/dL (12.0-15.0); Immature Granulocyte Percent A 0.6 % (0-0.5); Lymphocytes Absolute Auto 1.14 K/mm3 (0.9-3.2); Mean Corpuscular HGB Conc 33.6 g/dl (32-36); Mean Corpuscular Hemoglobin 32.3 pg (26-34); Mean Corpuscular Volume 96.1 fl (80-100); Nucleated Red Blood Cells Absolute Auto 0.000 K/mm3 (0.0-0.012); Nucleated Red Blood Cells Perc 0.0 % (0.0-0.2); Platelet Count Result 131 k/mm3 (150-375); Red Blood Count 4.34 M/mm3 (4.2-5.4); White Blood Count 3.1 K/mm3 (4.5-10.0)
== END 2025-06-29 12:48 | disposition home or self-care (01) ==
PROVIDERS: PCP Clinical Nurse Specialist; Visit Provider Emergency Medicine Emergency Medical Services
DX: M05.9 Rheumatoid arthritis with rheumatoid factor, unspecified (principal); Z79.899 Other long term (current) drug therapy
CPT/HCPCS: 36415; 85025

== ENCOUNTER 2025-08-10 11:19 | Emergency (ER) | payer MEDICARE, MEDICAID, SELFPAY ==
[2025-08-10] VITALS (8 sets, daily range): BP systolic 105–142; BP diastolic 61–80; PULSE 61–81; RESP 16–18; TEMP 36.4; O2SAT 96–100
--- OUTSIDE RECORDS SUMMARY | 2025-08-10 11:59 | XMS_ITS | Encounter Summary ---
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
--- OUTSIDE RECORDS SUMMARY | 2025-08-10 11:59 | XMS_ITS | Encounter Summary ---
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
--- OUTSIDE RECORDS SUMMARY | 2025-08-10 11:59 | XMS_ITS | Encounter Summary ---
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
--- OUTSIDE RECORDS SUMMARY | 2025-08-10 11:59 | XMS_ITS | Encounter Summary ---
Author Organization [facility] Healthcare Address [address] [place] [address] Care Team Providers Care Crate Maker Name Role Phone Adriano Powers DO Primary Care Provider +1- [phone] Encounter Details Date Type Department Care Team (Late st Contact Info) Description 09/08/[address] 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
--- OUTSIDE RECORDS SUMMARY | 2025-08-10 11:59 | XMS_ITS | Encounter Summary ---
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
--- OUTSIDE RECORDS SUMMARY | 2025-08-10 11:59 | XMS_ITS | Encounter Summary ---
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
--- OUTSIDE RECORDS SUMMARY | 2025-08-10 11:59 | XMS_ITS | Clinical Summary ---
Author Organization [facility] Address [facility] [place] [address] Care Team Providers Care Tire Care Manager Name Role Phone Adriano Powers DO Primary Care Provider +1- [phone] Allergies Active Allergy Reactions Criticality Noted Date Comments Amitriptyline Dizziness,Nausea only Low 04/12/2020 Fenofibrate Rash Medium 09/21/2015 Lisinopril Nausea & Vomiting,Nausea And Vomiting Low 04/01/2019 Causes TERRY, cramps, N/V Causes TERRY, cramps, N/V Losartan Stomach upset,Headache Low 03/31/2019 Oxycodone-Acetaminophen Unknown Low 09/14/2015 Penicillins Nausea only,Vomiting,Diarr hea Low Pregabalin Nausea & Vomiting,Nausea And Vomiting Low 11/15/2017 Prochlorperazine Other (See comments) Low Reaction: CRAMPING, Eoknolt-Nsw-Wfa Reductase Inhibitors Dizziness Low 09/25/2018 Terbinafine Unknown [...] WITH MEALS 180 tablet 06/10/20 25 Active warfarin (COUMADIN) 2 mg tablet Take 1 tablet by mouth once daily 30 tablet 08/04/20 25 Active warfarin (COUMADIN) 2 mg tablet Take 1 tablet by mouth once daily 30 tablet 07/06/20 25 025 Discontinued Active Problems Problem Noted Date Diagnosed Date Paroxysmal SVT (supraventricular tachycardia) Atrial tachycardia 05/12/2022 Mixed hyperlipidemia 09/01/2021 Abnormal findings on diagnostic imaging of breas t 05/11/2021 Coronary artery disease invo lving [place] coronary artery of [place] heart without angina pectoris 02/21/2021 Statin myopathy [...] Encounters Date Type Department Care Team Description 07/24/2025 Anticoagulation Visit [facility] Medical [facility] Cardiology [address] [place] [address] Gayla Tejeda RN History of mitral valve replacement with mechanical valve (Primary Dx); Chronic anticoagulation 07/13/2025 Anticoagulation Visit [facility] Cardiology [address] [place] [address] Mary Bermudez, CHAPIS History of mitral valve replacement with mechanical valve (Primary Dx); Chronic anticoagulation 06/08/2025 Anticoagulation Visit [facility] Cardiology [address] [place] [address] Alla Flowers RN History of mitral valve replacement with mechanical valve (Primary Dx); Chronic anticoagulation 05/22/2025 Anticoagulation Visit [facility] Cardiology [address] [place] [address] Gayla Tejeda RN History of mitral valve replacement with mechanical valve (Primary Dx); Chronic anticoagulation 05/19/2025 8:30 AM CDT Ancillary Procedure [facility] Medical [facility] Cardiology [address] [facility] [address] [address] Cardiac pacemaker in situ; Complete heart block (HCC); PAF (paroxysmal atrial fibrillation) from Last 3 Months Immunizations Immunization Administration [...] on file 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 Gender Identity Not on file Sexual Orientation Not on file Last Filed Vital Signs Vital Sign Reading Time Taken Comments Blood Pressure 134/76 12/25/2024 12:58 PM CDT Pulse 75 12/25/2024 12:58 PM CDT Temperature 36.2 C (97.1 F) 04/07/2020 11:43 AM CDT Respiratory Rate 18 09/30/2024 1:43 PM LIME KILN WORKER Oxygen Saturation 97% 12/25/2024 12:58 PM CDT [...] history exists Medical Devices Implanted Type Area Pharmacy Intake Coordinator Device Identifier Shelf Expiration Date Model / Serial / Lot Pacemaker-05/13 Implanted:05/13 (Quantity not on file) Pacemaker Chest [employer] CHB ELUNA 8 DRT / [id number] / Procedures Procedure Name Priority Date/Time Associated Diagnosis Comments PROTIME-INR Routine 07/24/2025 PROTIME-INR Routine 07/11/2025 PROTIME-INR Routine 06/08/2025 PROTIME-INR Routine 05/22/2025 DEVICE CHECK - REMOTE Routine 05/20/2025 10:38 AM CDT Cardiac pacemaker in situ Complete heart block (HCC) PAF (paroxysmal atrial fibrillation) SCREENING MAMMOGRAM BILATERAL W RALPH Schedule Routine, Read Routine (OP Routine) 01/07/2025 11:54 AM CDT Screening mammogram, encounter for from Last 3 Months or Most Recently Relevant to Health Maintenance Results * (ABNORMAL) Protime-INR (07/24/2025) INR 2.80(A) 0.90 - 1.10 EXTERNAL LAB Blood Result [facility] Provider MD LAB BLOOD ORDERABLES Snow l Result EXTERNAL LAB * (ABNORMAL) Protime-INR (07/11/2025) INR 2.70(A) 0.90 - 1.[address] [facility] Provider MD LAB BLOOD ORDERABLES Snow l Result EXTERNAL LAB * (ABNORMAL) Protime-INR (06/08/2025) INR 3.20(A) 0.90 - 1.10 EXTERNAL LAB Blood 06/08/2025 Result [facility] Provider MD LAB BLOOD ORDERABLES Snow l Result EXTERNAL LAB * (ABNORMAL) Protime-INR (05/22/2025) INR 2.80(A) 0.90 - 1.10 EXTERNAL LAB Blood us Historical Provider LAB BLOOD ORDERABLES Snow saucedo Result EXTERNAL LAB * DEVICE CHECK - [...] impedances, pacing and sensing thresholds. Presenting rhythm: AP/ASSET ANALYST AP-40%, ASSET ANALYST-99% No AT/AF episodes noted.. No Ventricular high rate episodes detected. Medications: ASA 81 mg, carvedilol 6.25 mg, warfarin See scanned report. Office pacemaker follow up: 11/04/25 Biotronik remote f/u 08/18/25. Jose Hughes RN [facility] Hilton Ribeiro MD CV CARDIAC SERVICES PRO CEDURES Final Result * Screening Mammogram Bilateral W Ralph (01/07/2025 11:54 AM CDT) Anatomical Region Laterality Modality Breast Bilateral Mammography Narrative 01/08/2025 4:38 PM CDT Mammogram Technique: Bilateral Digital Breast Tomosynthesis, Bilateral C-view 2D Screening mammogram. Views obtained: bilateral craniocaudal and bilateral mediolateral oblique. Computer Aided Detection was performed. Mammogram Findings: The present examination has been compared to prior imaging studies performed at [facility] on 01/18/2022, 12/21/2022 and 01/01/2024. [...] compared to prior imaging studies performed at [facility] on 01/18/2022, 12/21/2022 and 01/01/2024. [...] Most Recently Relevant to Health Maintenance Insurance [facility] MEDICARE ADVANTAGE IDVA IDPA [facility] MEDICARE ADVANTAGE IDPA [facility] MEDICARE ADVANTAGE Care Teams Tire Care Manager Relationship Specialty Start Date End Date Adriano Powers DO PCP - General Internal Medicine 01/17/21
--- OUTSIDE RECORDS SUMMARY | 2025-08-10 11:59 | XMS_ITS | Encounter Summary ---
Author Organization 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
--- OUTSIDE RECORDS SUMMARY | 2025-08-10 11:59 | XMS_ITS | Encounter Summary ---
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
--- OUTSIDE RECORDS SUMMARY | 2025-08-10 11:59 | XMS_ITS | Clinical Summary ---
Author Organization [facility] Healthcare Address [address] [facility] [place] [address] Care Team Providers Care Sql Database Administrator Name Role Phone Unavailable Primary Care Provider Unavailabl e Source Comments [facility],non-owned Affiliates and Associated Physician Practices is amultiple site organization consisting of ambulatory clinics and hospital sitesin [place], [place], [place] and [place]. This disclosure is being madepursuant to the Care Everywhere program and may not contain all information available regarding this patient. Last updated 18.[facility] Social History Tobacco Use Types Packs/Day Years [...] DEPRESSION SCREENING 08/13/2024 COVID-19 VACCINE ( - 2024-2 6 season) 2025 INFLUENZA VACCINE (#1) 2025 Respiratory [...]
--- OUTSIDE RECORDS SUMMARY | 2025-08-10 11:59 | XMS_ITS | Encounter Summary ---
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
--- OUTSIDE RECORDS SUMMARY | 2025-08-10 11:59 | XMS_ITS | Encounter Summary ---
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
--- OUTSIDE RECORDS SUMMARY | 2025-08-10 11:59 | XMS_ITS | Encounter Summary ---
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
--- OUTSIDE RECORDS SUMMARY | 2025-08-10 12:00 | XMS_ITS | Clinical Summary ---
Author Organization [facility] Benito Hennessy Address [address] [place] [address] Care Team Providers Care Assembler Convertible Top Name Role Phone Adriano Powers DO Primary Care Provider Allergies Active Allergy Reactions [...] Comments) Low 05/01/2023 Reaction: CRAMPING, Reaction: CRAMPING, Lanttau-Pqk-Pax Reductase Inhibitors Dizziness Low 09/25/2018 Terbinafine Unknown [...] Encounters Date Type Department Care Team Description 07/21/2025 External Device Data [facility] ABSTRACTION Provider, Abstract 06/30/2025 External Device Data [facility] ABSTRACTION Provider, Abstract 06/10/2025 External Device Data [facility] ABSTRACTION Provider, Abstract 06/09/2025 External Device Data [facility] ABSTRACTION Provider, Abstract 05/13/2025 Orders Only [facility] Oncology [facility] Hematology [place] [address] [place] [address] Carl Sweet MD 05/12/2025 11:30 AM CDT Office Visit [facility] Oncology [facility] [address] [place] [address] Carl Sweet MD Chronic anemia (Primary Dx) 05/11/2025 Telephone [facility] Oncology [facility] [address] [place] [address] Carl Sweet MD labs for appt from Last 3 Months Family History Medical History Relation Name Comments Heart Disease Brother 1 Heart Disease Mother Relation Name Status Comments Brother 1 Brother 2 Daughter Alive Father Mother Sister 1 Alive Sister 2 Alive Sister 3 Alive Sister 4 Alive Son Alive Social History Tobacco Use Types Packs/Day Years Used Date Smoking Tobacco: Former Cigarettes 0 Q uit: 12/2022 Smokeless Tobacco: Never Tobacco [...] Description 11/09/2025 11:30 AM CDT Office Visit [facility] Oncology and Hematology [facility] [address] [facility] [address] [place] [address] Carl Sweet MD [address] [facility] [employer] [address] [place] [address] Health Maintenance Due Date Last [...] WITH AUTODIFFERENTIAL (05/11/2025 12:38 PM CDT) Blood Carl Sweet MD HEMATOLOGY ORDERABLES Final Res ult from Last 3 Months Insurance MEDICAID [place] [facility] DUAL COMPLETE PPO [facility] [id number] Care Teams Assembler Convertible Top Relationship Specialty Start Date End Date Adriano Powers DO [address] [facility] [address] [place] [address] PCP - General Internal Medicine 05/01/23
--- OUTSIDE RECORDS SUMMARY | 2025-08-10 12:00 | XMS_ITS | Clinical Summary ---
Author Organization [facility] Address [address] [place] [address] Care Team Providers Care Psychiatric Rn Name Role Phone Adriano Powers DO Primary Care Provider [phone] Allergies Active Allergy Reactions Criticality Noted Date [...] 100 MG tablet 100 mg. 7 Active Social History Tobacco Use Types Packs/Day Years [...] Comments Blood Pressure 109/61 08/24/2019 6:41 PM DEMOGRAPHIC ANALYST Pulse 59 08/24/2019 6:41 PM DEMOGRAPHIC ANALYST Temperature 36.9 C (98.4 F) 08/24/2019 6:41 PM DEMOGRAPHIC ANALYST Respiratory Rate 16 08/24/2019 6:41 PM DEMOGRAPHIC ANALYST Oxygen Saturation 100% 08/24/2019 6:41 PM DEMOGRAPHIC ANALYST Inhaled Oxygen Concentration - - Weight 63.5 kg (140 lb) 08/24/2019 6:41 PM DEMOGRAPHIC ANALYST Height 170.2 cm (5' 7) 08/24/2019 6:41 PM DEMOGRAPHIC ANALYST Body Mass Index 21.93 08/24/2019 6:41 PM DEMOGRAPHIC ANALYST Plan of Treatment Health Maintenance Due Date [...] (2 of 2 - PCV) 07/02/2016 07/02/2015 RSV Immunization or 60+ Years (1 - Risk 60-74 years 1-dose series) 2024 Zoster Vaccines (2 of 2) 04/07/2025 02/10/2025 COVID-19 Vaccine (3 - 2024- season) 2025 12/31/2020, 12/12/2020 DTaP, Tdap and Td Vaccines (2 - Td or Tdap) 07/02/2025 07/02/2015 Mammogram Screening 01/07/2027 01/07/2025, 01/01/2024, 12/21/2022, Additional history exists Influenza Adult Completed 04/17/2025, 03/2021, 05/05/2020, Additional history exists Hepatitis A Vaccines Aged Out No long er eligible based on patient's age to complete this topic Meningococcal B Vaccine Aged Out No l onger eligible based on patient's age to complete this topic Meningococcal Vaccine Aged Out No satinder holden eligible based on patient's age to complete this topic RSV Immunizations Under 20 Months Aged Out No longer eligible based on patient's age to complete this topic Insurance [facility] MEDICARE MEDICAID Care Teams Psychiatric Rn Relationship Specialty Start Date End Date Adriano Powers DO [address] [facility] [address] [place] [id number] PCP - General INTERNAL MEDICINE 3/9/22
--- OUTSIDE RECORDS SUMMARY | 2025-08-10 12:00 | XMS_ITS | Encounter Summary ---
Author Organization [facility] Address [address] [facility] [address] [place] [address] Care Team Providers Care Web Site Manager Name Role Phone Kain Carty MD, Garcia Dc Primary Care Provider Adriano Powers DO Primary Care Provider [phone]- [phone] Encounter Details Date Type Department Care Team (Late st Contact Info) Description 12/07/2016 Orders Only [facility] ProviderJohnny MD [address] [place], [place] [id number] Social History Tobacco Use Types Packs/Day Years Used Date Smoking Tobacco: Every Day Alcohol Use Standard Drinks/Week Comments No 0 (1 standard drink = 0.6 oz pur e alcohol) Comments Unknown Sex and Gender Information Value Date Recorded Sex Assigned at Not on file 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
--- NOTE | 2025-08-10 13:07 | ED.GENADULT ---
HPI - General Adult General Chief complaint: Nausea/Vomiting/Diarrhea Stated complaint: Diarrhea x 2.5 days, abd cramping Time Seen by Provider: 08/10/25 12:46 History of Present Illness HPI narrative: 60-year-old female presenting to the emergency department for evaluation for persistent diarrhea for the last 3 days. Patient states she is having watery diarrhea. Patient denies any new antibiotics or new medications. Patient does report sick contacts just prior to the illness. Patient states she was around her brother's child who is 16 years of age and does have similar symptoms. Patient states he is having some intermittent abdominal cramping. Related Data Home Medications ?Medication ?Instructions ?Recorded ?Confirmed ?Last Taken ?Type warfarin 2 mg tablet 2 mg PO QMWF 02/16/23 07/14/25 Unknown History mecobalamin (vitamin B12) 1,000 1,000 mcg PO DAILY 06/18/23 07/14/25 Unknown History mcg chewable tablet methotrexate sodium 2.5 mg tablet 10 mg PO .1XW 08/23/23 07/14/25 Unknown History Allergies Allergy/AdvReac Type Severity Reaction Status Date / Time simvastatin Allergy Severe Dizziness Verified 08/10/25 11:25 milnacipran Allergy Intermediate Rash, Verified 08/10/25 11:25 dizziness Penicillins Allergy Intermediate Nausea and Verified 08/10/25 11:25 Vomiting duloxetine Allergy Mild Cramp Verified 08/10/25 11:25 lisinopril Allergy Unknown Unknown Verified 08/10/25 11:25 losartan Allergy Unknown Unknown Verified 08/10/25 11:25 oxycodone (From Percocet) Allergy Unknown Confusion Verified 08/10/25 11:25 pregabalin (From Lyrica) Allergy Unknown Nausea and Verified 08/10/25 11:25 Vomiting prochlorperazine Allergy Unknown Unknown Verified 08/10/25 11:25 terbinafine Allergy Unknown Unknown Verified 08/10/25 11:25 amitriptyline AdvReac Intermediate heart Verified 08/10/25 11:25 flutters nitrofurantoin (From AdvReac Dizziness Verified 08/10/25 11:25 Macrobid) Review of Systems Review of Systems: All systems reviewed & are unremarkable except as noted in HPI and below PMFSH Past Medical History Medical History (Updated 08/10/25 @ 15:28 by Haim Venegas MD) Ulnar shaft fracture Preventative health care Tobacco abuse Quit in 2022 Well woman exam with routine gynecological exam Pacemaker Thyroid disease Heart disease Rheumatoid arthritis Influenza vaccine administered was given on 03/16/2019 by [facility] [place]. Vaccine was given in the L delt. Surgical History Surgical History Hx of heart surgery History of back surgery Family History Family History Mother Patient's mother is in good health Family history of diabetes mellitus in first degree relative Heart disease Sibling Depression Grandparent Cancer Cerebrovascular accident Social History Social History Social History: Caffeine-tea Smoking packs per day: 0.5 Smoking cigarettes per day: 10.0 Smoking status: Former smoker Second hand tobacco smoke exposure: Yes Smoking end date: 08/13/22 Alcohol intake: never Substance use: never Substance use type: does not use Lack of Transportation: No Lack of Food: Never True Current Housing: I Have Housing Concerned About Future Housing: No Difficulty Paying Gas/Electric Bills: No Difficulty Paying for Meds: No Currently Unemployed: No Education: High School Diploma/GED Difficulty w/ Childcare or Family Care: No Exam Narrative: APPEARANCE: Well appearing, no pain, no distress, well-nourished. HEAD: normocephalic, atraumatic. EYES: PERRLA/EOMI, conjunctivae clear. NOSE: Normal no drainage EARS:TMS clear with good light reflex. THROAT: Pharynx clear, no exudate. NECK: Supple. No adenopathy, no masses. RESPIRATORY: Airway patent, respirations nonlabored. Clear to auscultation bilaterally, no rales, rhonchi, wheezing. CARDIOVASCULAR: Regular rate and rhythm without murmurs rubs or gallops. ABDOMINAL: Soft, nontender, nondistended, normal bowel sounds MUSCULOSKELETAL: Moves all extremities. Strength/ROM intact, No edema, No calf tenderness. NEURO: Alert. Cranial nerves II through XII intact. Good gait. Good coordination SKIN: Warm, dry. Normal Color Course Vital Signs Vital signs: Vital Signs Temperature 97.6 F 08/10/25 11:26 Pulse Rate 67 08/10/25 11:26 Respiratory Rate 18 08/10/25 11:26 Blood Pressure 142/78 H 08/10/25 11:26 Pulse Oximetry 99 08/10/25 11:26 Oxygen Delivery Room Air 08/10/25 11:26 Temperature 97.6 F 08/10/25 11:26 Pulse Rate 78 08/10/25 15:05 Respiratory Rate 16 08/10/25 14:40 Blood Pressure 105/80 08/10/25 15:05 Pulse Oximetry 96 08/10/25 14:40 Oxygen Delivery Room Air 08/10/25 11:26 [facility] Narrative Medical decision making narrative: 60-year-old female presents emergency department for evaluation for persistent diarrhea over last few days P patient was negative for C diff. Patient is afebrile no leukocytosis patient has no acute abnormalities on her CMP. Patient's creatinine is 1.07 which is similar to her baseline. UA was positive for ketones negative for infection. Patient was negative for C diff. Patient was treated with 1 L of lactated Ringer's. Patient was advised to follow a clear liquid diet for the next few days. Patient will be provided Zofran for nausea control. Patient was updated the results of her workup. All questions concerns were addressed. Differential Diagnosis Differential Diagnosis: Dehydration, C diff, diarrhea, gastritis Lab Data [facility] Lab Attestation statement: I personally reviewed the patient's lab results. 08/10/25 14:14 08/10/25 14:14 Labs: Lab Results 08/10/25 08/10/25 Range/Units 13:59 14:14 WBC 4.8 (4.5-10.0) K/mm3 RBC 4.96 (4.2-5.4) M/mm3 Hgb 16.1 H (12.0-15.0) g/dL Hct 47.0 (37.0-47.0) % MCV 94.8 (80-100) fl MCH 32.5 (26-34) pg MCHC 34.3 (32-36) g/dl RDW 13.8 (11.5-14.5) % Plt Count 159 (150-375) k/mm3 MPV 9.9 (7.4-10.4) fl Immature Gran % (Auto) 0.2 (0-0.5) % Neut % (Auto) 55.2 (45.5-73.1) % Lymph % (Auto) 34.3 (18.3-44.2) % Becker % (Auto) 8.2 (2.6-8.5) % Eos % (Auto) 1.5 (0-4.4) % Baso % (Auto) 0.6 (0.2-1.2) % Lymph # (Auto) 1.64 (0.9-3.2) K/mm3 Becker # (Auto) 0.4 (0.1-0.6) K/mm3 Eos # (Auto) 0.1 (0-0.3) K/mm3 Baso # (Auto) 0.0 (0.0-0.1) K/mm3 Abs Immat Gran (auto) 0.01 (0.00-0.031) K/mm3 Absolute Neuts (auto) 2.6 (1.3-6.7) K/mm3 Absolute Nucleated RBC 0.000 (0.0-0.012) K/mm3 Nucleated RBC % 0.0 (0.0-0.2) % Sodium 139 (137-145) mmol/L Potassium 3.5 (3.4-5.0) mmol/L Chloride 109 H (98-107) mmol/L Carbon Dioxide 22 (22-30) mmol/L Anion Gap 8 (4-12) mmol/L BUN 19 H (7-17) mg/dL Creatinine 1.07 H (0.7-1.0) mg/dL Estim Creat Clear Calc 48 ml/min Estimated GFR 52 L (59 - ) Glucose 108 (65-110) mg/dL Calcium 9.4 (8.4-10.2) mg/dL Total Bilirubin 0.8 (0.2-1.3) mg/dL AST 86 H (14-36) U/L ALT 65 H (6-35) U/L Alkaline Phosphatase 114 (38-126) U/L Total Protein 8.4 H (6.3-8.2) g/dL Albumin 4.6 (3.5-5.1) g/dL Lipase 87 (23-300) U/L Urine Color Dark yellow (Yellow) Urine Appearance Clear (Clear) Urine pH 5.5 (5.0-9.0) Ur Specific [place] 1.037 H (1.001-1.035) Urine Protein 1+ H (Negative) mg/dL Urine Glucose (UA) Negative (Negative) mg/dL Urine Ketones 1+ H (Negative) mg/dL Ur Blood (Man) Negative (Negative) Urine Nitrate Negative (Negative) Urine Bilirubin Negative (Negative) Urine Urobilinogen 1.0 (<2.0) mg/dL Add Ur Microanalysis Reviewed Leukocyte Esterase Rfl Negative (Negative) DASHAWN/UL Urine RBC 6-10 H (0-2) /hpf Urine WBC 0-5 (0-3) /hpf Ur Squamous Epith Cells Occasional (Few) /hpf Urine Bacteria None seen /hpf Urine Casts 3-5 C. difficile (PCR) Negative (NEGATIVE) Discharge Plan Discharge Clinical Impression: Diarrhea Patient Disposition: Home Condition: Stable Instructions: Antibiotic Form, Clear Liquid Diet (ED), Acute Diarrhea (ED) Additional Instructions: Clear liquid diet for the next 3-5 days. Zofran as needed for nausea control. Have close follow-up with your primary care physician. If you have worsening symptoms then please call or return to the emergency department. Patient Language: Zimbabwean Prescriptions: New ondansetron 4 mg tablet,disintegrating 4 mg PO Q8H PRN (Reason: nausea and vomiting) Qty: 14 0RF No Action mecobalamin (vitamin B12) 1,000 mcg tablet,chewable 1,000 mcg PO DAILY (DME) Motorized Scooter See Rx Instructions .Route .MEDSUPPLY Qty: 1 0RF Rx Instructions: To use for doctors, physical therapy, ect appointments. (DME) Compression Stockings See Rx Instructions .Route .MEDSUPPLY Qty: 1 0RF Rx Instructions: 20-30 mmHg Wear during the day and take off at night folic acid 1 mg tablet 1 mg PO DAILY Qty: 90 0RF aspirin 81 mg tablet,delayed release (DR/EC) 81 mg PO DAILY Qty: 90 0RF calcium citrate-vitamin D3 [Citracal + D Maximum] 315 mg- 250 unit tablet 1 tablet PO BID Qty: 180 0RF Orencia 125 mg/mL syringe 125 mg SUB-Q WEEKLY Qty: 4 0RF Rx Instructions: inject into abdomen, thigh, or outer area of arm; rotate sites carvedilol 6.25 mg tablet 6.25 mg PO Q12H Qty: 180 0RF Rx Instructions: must administer with a meal/food warfarin 2 mg tablet 2 mg PO QMWF methotrexate sodium 2.5 mg tablet 10 mg PO .1XW Patient Comments: Pts specialist increased it to 4 pills a week on Fridays warfarin 1 mg tablet See Rx Instructions .ROUTE .COMPLEX PRN (Reason: Only take if needed due to INR result) Qty: 90 0RF Dose Instruction: TAKE 1 TABLET BY MOUTH ONCE DAILY AT 5PM Rx Instructions: TAKE 1 TABLET BY MOUTH PRN for dosage increase due to PT INR; topiramate 100 mg tablet 100 mg PO DAILY Qty: 90 1RF ferrous sulfate 325 mg (65 mg iron) tablet 325 mg PO DAILY Qty: 90 1RF ezetimibe 10 mg tablet See Rx Instructions .ROUTE .COMPLEX Qty: 90 1RF Dose Instruction: Take 1 tablet by mouth once daily Rx Instructions: Take 1 tablet by mouth once daily Follow-up/Referrals: Adriano Powers, [Primary Care Provider, Internal Medicine]
--- OUTSIDE RECORDS SUMMARY | 2025-08-10 13:45 | XMS_ITS | Encounter Summary ---
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
--- OUTSIDE RECORDS SUMMARY | 2025-08-10 13:45 | XMS_ITS | Clinical Summary ---
Author Organization [facility] Address [address] [place] [address] Care Team Providers Care Patient Assessment Coordinator Name Role Phone Adriano Powers DO Primary Care Provider [phone] Allergies Active Allergy Reactions Criticality Noted Date [...] Comments Blood Pressure 109/61 08/24/2019 6:41 PM CUSTOM BIKE BUILDER Pulse 59 08/24/2019 6:41 PM CUSTOM BIKE BUILDER Temperature 36.9 C (98.4 F) 08/24/2019 6:41 PM CUSTOM BIKE BUILDER Respiratory Rate 16 08/24/2019 6:41 PM CUSTOM BIKE BUILDER Oxygen Saturation 100% 08/24/2019 6:41 PM CUSTOM BIKE BUILDER Inhaled Oxygen Concentration - - Weight 63.5 kg (140 lb) 08/24/2019 6:41 PM CUSTOM BIKE BUILDER Height 170.2 cm (5' 7) 08/24/2019 6:41 PM CUSTOM BIKE BUILDER Body Mass Index 21.93 08/24/2019 6:41 PM CUSTOM BIKE BUILDER Plan of Treatment Health Maintenance Due Date [...] patient's age to complete this topic Insurance [facility] MEDICARE MEDICAID Care Teams Patient Assessment Coordinator Relationship Specialty Start Date End Date Adriano Powers DO [address] [facility] [address] [place] [id number] PCP - General INTERNAL MEDICINE 3/9/22
--- OUTSIDE RECORDS SUMMARY | 2025-08-10 13:45 | XMS_ITS | Clinical Summary ---
Author Organization [facility] Address [facility] [place] [address] Care Team Providers Care Agricultural Commodities Inspector Name Role Phone Adriano Powers DO Primary Care Provider +1- [phone] Allergies Active Allergy Reactions Criticality Noted Date Comments Amitriptyline Dizziness,Nausea only Low 04/12/2020 Fenofibrate Rash Medium 09/21/2015 Lisinopril Nausea & Vomiting,Nausea And Vomiting Low 04/01/2019 Causes TERRY, cramps, N/V Causes TERRY, cramps, N/V Losartan Stomach upset,Headache Low 03/31/2019 Oxycodone-Acetaminophen Unknown Low 09/14/2015 Penicillins Nausea only,Vomiting,Diarr hea Low Pregabalin Nausea & Vomiting,Nausea And Vomiting Low 11/15/2017 Prochlorperazine Other (See comments) Low Reaction: CRAMPING, Jsuufid-Uhy-Fdl Reductase Inhibitors Dizziness Low 09/25/2018 Terbinafine Unknown [...] t 05/11/2021 Coronary artery disease invo lving kaibab coronary artery of kaibab heart without angina pectoris 02/21/2021 Statin myopathy [...] Department Care Team Description 07/24/2025 Anticoagulation Visit [facility] Medical [facility] Cardiology [address] [place] [address] Gayla Tejeda RN History of mitral valve replacement with mechanical valve (Primary Dx); Chronic anticoagulation 07/13/2025 Anticoagulation Visit [facility] Cardiology [address] [place] [address] Mary Bermudez, CHAPIS History of mitral valve replacement with mechanical valve (Primary Dx); Chronic anticoagulation 06/08/2025 Anticoagulation Visit [facility] Cardiology [address] [place] [address] Alla Flowers RN History of mitral valve replacement with mechanical valve (Primary Dx); Chronic anticoagulation 05/22/2025 Anticoagulation Visit [facility] Medical Group Cardiology [address] [place] [address] Gayla Tejeda RN History of mitral valve replacement with mechanical valve (Primary Dx); Chronic anticoagulation 05/19/2025 8:30 AM CDT Ancillary Procedure [facility] Medical [facility] Cardiology [address] [facility] [address] [address] Cardiac pacemaker in situ; Complete [...] on file 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 Gender Identity Not on file Sexual Orientation Not on file Last Filed Vital Signs Vital Sign Reading Time Taken Comments Blood Pressure 134/76 12/25/2024 12:58 PM CDT Pulse 75 12/25/2024 12:58 PM CDT Temperature 36.2 C (97.1 F) 04/07/2020 11:43 AM CDT Respiratory Rate 18 09/30/2024 1:43 PM TESTER OPERATOR Oxygen Saturation 97% 12/25/2024 12:58 PM [...] history exists Medical Devices Implanted Type Area Automobile Upholsterer Apprentice Device Identifier Shelf Expiration Date Model / Serial / Lot Pacemaker-05/13 Implanted:05/13 (Quantity not on file) Pacemaker [employer] CHB ELUNA 8 DRT / [id number] / Procedures Procedure Name Priority Date/Time Associated [...] 0.90 - 1.10 EXTERNAL LAB Blood Result [facility] Provider MD LAB BLOOD ORDERABLES Snow l Result EXTERNAL LAB * (ABNORMAL) Protime-INR (07/11/2025) INR 2.70(A) 0.90 - 1.10 EXTERNAL LAB Blood [facility] Provider MD LAB BLOOD ORDERABLES Snow l Result EXTERNAL LAB * (ABNORMAL) Protime-INR (06/08/2025) INR 3.20(A) 0.90 - 1.10 EXTERNAL LAB Blood 06/08/2025 Result [facility] Provider MD LAB BLOOD ORDERABLES Snow [...] impedances, pacing and sensing thresholds. Presenting rhythm: AP/QUALITY SUPERVISOR AP-40%, QUALITY SUPERVISOR-99% No AT/AF episodes noted.. No Ventricular high [...] compared to prior imaging studies performed at [facility] on 01/18/2022, 12/21/2022 and 01/01/2024. There are [...] compared to prior imaging studies performed at [facility] on 01/18/2022, 12/21/2022 and 01/01/2024. There are [...] Most Recently Relevant to Health Maintenance Insurance [facility] MEDICARE ADVANTAGE [facility] Address: [address] [address] [place] [address] [employer] IDPA [facility] MEDICARE ADVANTAGE [facility] Address: [address] [address] [place] [address] IDPA [facility] MEDICARE ADVANTAGE Care Teams Agricultural Commodities Inspector Relationship Specialty Start Date End Date Adriano Powers DO PCP - General Internal Medicine 01/17/21
--- OUTSIDE RECORDS SUMMARY | 2025-08-10 13:45 | XMS_ITS | Encounter Summary ---
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
--- OUTSIDE RECORDS SUMMARY | 2025-08-10 13:45 | XMS_ITS | Encounter Summary ---
Author Organization [facility] Healthcare Address [address] [place] [address] Care Team Providers Care Account Adjuster Name Role Phone Adriano Powers DO Primary Care Provider +1- [phone] Encounter Details Date Type Department Care Team (Late st Contact Info) Description 01/09/2025 Orders Only [facility] [place] Health Information Management [address] [place] [phone] Scanning, Provider Social History Tobacco Use Types [...] on filedocumented in this encounter Care Teams Account Adjuster Relationship Specialty Start Date End Date Adriano Powers DO PCP - General Internal Medicine 01/17/21 documented as of this encounter
--- OUTSIDE RECORDS SUMMARY | 2025-08-10 13:45 | XMS_ITS | Clinical Summary ---
Author Organization [facility] Benito Hennessy Address [address] [place] [address] Care Team Providers Care Production Support Specialist Name Role Phone Adriano Powers DO [...] Comments) Low 05/01/2023 Reaction: CRAMPING, Reaction: CRAMPING, Lpjvgid-Lae-Rcy Reductase Inhibitors Dizziness Low 09/25/2018 Terbinafine Unknown [...] STL ABSTRACTION Provider, Abstract 05/13/[address] [facility] Oncology [facility] Hematology [place] [address] [place] [address] Carl Sweet MD 05/12/2025 11:30 AM CDT Office Visit [facility] Oncology [facility] [address] [place] [address] Carl Sweet MD Chronic anemia (Primary Dx) 05/11/[address] [facility] Oncology [facility] [address] [place] [address] Carl Swete MD labs for appt from Last 3 [...] Description 11/09/2025 11:30 AM CDT Office Visit [facility] Oncology and Hematology [facility] [address] [facility] [address] [place] [address] Carl Sweet MD [address] [place] [address] Health Maintenance Due Date Last [...] from Last 3 Months Insurance MEDICAID [place] [facility] DUAL COMPLETE PPO [facility] [id number] Care Teams Production Support Specialist Relationship Specialty Start Date End Date Adriano Powers DO [address] [place] [address] PCP - General Internal Medicine 05/01/23
--- OUTSIDE RECORDS SUMMARY | 2025-08-10 13:45 | XMS_ITS | Encounter Summary ---
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
--- OUTSIDE RECORDS SUMMARY | 2025-08-10 13:45 | XMS_ITS | Encounter Summary ---
Author Organization 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
--- OUTSIDE RECORDS SUMMARY | 2025-08-10 13:45 | XMS_ITS | Encounter Summary ---
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
--- OUTSIDE RECORDS SUMMARY | 2025-08-10 13:45 | XMS_ITS | Clinical Summary ---
Author Organization [facility] Address [address] [facility] [place] [address] Care Team Providers Care Fire Safety Inspector Name Role Phone Unavailable Primary Care Provider Unavailabl e Source Comments [facility],non-owned Affiliates and Associated Physician Practices is amultiple site organization consisting of ambulatory clinics and hospital sitesin [place], [place], [place] and [place]. This disclosure is being madepursuant to the Care Everywhere program and may not contain all information available regarding this patient. Last updated 18.[facility] Social History Tobacco Use Types Packs/Day Years [...]
--- OUTSIDE RECORDS SUMMARY | 2025-08-10 13:45 | XMS_ITS | Encounter Summary ---
Author Organization [facility] Address [address] [facility] [address] [place] [address] Care Team Providers Care Optometric Aide Name Role Phone Kain Carty MD, Garcia Dc Primary Care Provider Adriano Powers DO Primary Care Provider +1- [phone] Encounter Details Date Type Department Care Team (Late st Contact Info) Description 12/07/2016 Orders Only [facility] ProviderJohnny MD [address] [place], [place] [id number] Social History Tobacco Use Types Packs/Day Years Used Date Smoking Tobacco: Every Day Alcohol Use Standard Drinks/Week Comments No 0 (1 standard drink = 0.6 oz pur e alcohol) Comments Unknown Sex and Gender Information Value Date Recorded Sex Assigned at Not on file 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
--- OUTSIDE RECORDS SUMMARY | 2025-08-10 13:45 | XMS_ITS | Encounter Summary ---
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
--- OUTSIDE RECORDS SUMMARY | 2025-08-10 13:45 | XMS_ITS | Encounter Summary ---
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
--- OUTSIDE RECORDS SUMMARY | 2025-08-10 13:45 | XMS_ITS | Encounter Summary ---
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
--- OUTSIDE RECORDS SUMMARY | 2025-08-10 13:45 | XMS_ITS | Encounter Summary ---
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
--- OUTSIDE RECORDS SUMMARY | 2025-08-10 13:45 | XMS_ITS | Encounter Summary ---
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
[2025-08-10 14:23] LABS: Add Urine Microscopic? YES; Appearance Urine Clear (Clear); Glucose Urine UA Negative (Negative); Leukocyte Esterase Ur Negative LEU/UL (Negative); Need Manual Microscopic Reviewed; Nitrate Urine Negative (Negative); Specific Grav Ur 1.037 (1.001-1.035)
[2025-08-10 14:27] LABS: Hematocrit 47.0 % (37.0-47.0); Hemoglobin 16.1 g/dL (12.0-15.0); Immature Granulocyte Percent A 0.2 % (0-0.5); Lymphocytes Absolute Auto 1.64 K/mm3 (0.9-3.2); Mean Corpuscular HGB Conc 34.3 g/dl (32-36); Mean Corpuscular Hemoglobin 32.5 pg (26-34); Mean Corpuscular Volume 94.8 fl (80-100); Nucleated Red Blood Cells Absolute Auto 0.000 K/mm3 (0.0-0.012); Nucleated Red Blood Cells Perc 0.0 % (0.0-0.2); Platelet Count Result 159 k/mm3 (150-375); Red Blood Count 4.96 M/mm3 (4.2-5.4); White Blood Count 4.8 K/mm3 (4.5-10.0)
[2025-08-10 14:37] LABS: Alanine Aminotransferase 65 U/L (6-35); Albumin Level 4.6 g/dL (3.5-5.1); Alkaline Phosphatase 114 U/L (38-126); Anion Gap 8 mmol/L (4-12); Aspartate Amino Transferase 86 U/L (14-36); Bilirubin,Total 0.8 mg/dL (0.2-1.3); Blood Urea Nitrogen 19 mg/dL (7-17); Calcium 9.4 mg/dL (8.4-10.2); Carbon Dioxide 22 mmol/L (22-30); Chloride 109 mmol/L (98-107); Estimated CRCL calculation 48 ml/min; Estimated Glomerular Filt Rate 52; Glucose 108 mg/dL (65-110); Lipase 87 U/L (23-300); Potassium 3.5 mmol/L (3.4-5.0); Sodium 139 mmol/L (137-145); Total Protein 8.4 g/dL (6.3-8.2)
[2025-08-10] MEDS: LACTATED RINGERS 1,000 ML 999 ML IV CONT (14:47)
[2025-08-10 15:20] LABS: Toxigenic C. Diff NEGATIVE (NEGATIVE)
== END 2025-08-10 16:52 | disposition home or self-care (01) ==
PROVIDERS: Emergency Provider Emergency Medicine; PCP Internal Medicine
DX: R19.7 Diarrhea, unspecified (principal); I51.9 Heart disease, unspecified; E07.9 Disorder of thyroid, unspecified; M06.9 Rheumatoid arthritis, unspecified; Z95.0 Presence of cardiac pacemaker; Z87.891 Personal history of nicotine dependence; Z79.01 Long term (current) use of anticoagulants; Z79.631 Long term (current) use of antimetabolite agent; Z79.899 Other long term (current) drug therapy; Z79.82 Long term (current) use of aspirin
CPT/HCPCS: 36415; 80053; 81001; 83690; 85025; 87045; 87046; 87427; 87493; 96360; 99283; J7120